=== PATIENT | male | born 1945 | race Caucasian/White ===

== ENCOUNTER 2021-09-09 08:14 | Outpatient (RCR) | payer MEDICARE, OTHER, SELFPAY ==
--- OUTSIDE RECORDS SUMMARY | 2021-08-07 08:56 | XMS_ITS | Continuity of Care Document ---
:1945 Author Support Name Relationship Address Phone DIANA Unavailable Unavailable Unavailable [place], [facility] Team Providers Name Role Phone MD Abiola Torres Primary Care Physician MD Bernabe Attending Physician Unavailable Allergies, Adverse Reactions, Alerts Allergen Type Severity Reaction Last Updated Verified Status Chlorhexidine Allergy Unknown March Yes Active 2021 Social History Smoking Status Status Start Date End Date Date of Observat ion Never smoked tobacco November 4:30pm (finding) Observation Status Observation Response Date of Response Alcohol abuse December 07, 2020 1 2:25pm Where do you live? Own home/apt December 03, 2020 4 :49pm With whom do you live? 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 Hypertension Active Thrombocytopenia Active Hypovolemic shock Active 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 Medications Medication Status Dose Units Route Directions Qty Days Start End Ins tructions Date Date Acetaminophen Active 500-10 MG PO Every 6 100 NO MORE THAN (Tylenol 00 Hours as 4000 MG/ DAY Extra needed Strength) 500 Mg TAB Amlodipine Active 5 MG PO Daily Besylate Bosutinib Active 500 MG PO Daily (Bosulif) 500 Mg TAB Bupropion Hcl Active 150 MG PO Daily (Bupropion Hcl Xl (24 Hr)) 150 Mg TABCR Cholecalcifer Active 49153 UNIT PO Daily ol (Vitamin D3) 10,000 Unit TAB Nitroglycerin Active 0.4 MG SL Every 5 100 Minutes X 3 as needed Omeprazole Active 20 MG PO Daily 30 Ropinirole Active 0.5 MG PO Bedtime as Hcl needed (Ropinirole Hydrochloride ) 0.5 Mg TAB Rosuvastatin Active 20 MG PO Bedtime 90 Calcium Topiramate Active 100 MG PO Bedtime Acetaminophen Disconti 500-10 MG PO Every 6 100 Januar NO MORE THAN (Tylenol nued 00 Hours as y 4000 MG/ DAY Extra needed for , ) 500 Headache 2015 Mg TAB 3:07pm Antidepressan Disconti September do es not know the name, started per Dr Barragan t nued 02/15 tab X next 3 days then full tablet 2015 1:23pm Aspirin Disconti 325 MG PO Daily November Stop t his medicine for now. Do not resume until your nued , er physician devi cates that you may do so. 2020 2nd, 12:21pm 2020 8:58am Aspirin Disconti 325 MG PO Daily 100 Octobe nued r 2020 1:23pm Aspirin Disconti 81 MG PO Daily 100 Octobe nued r 2020 2:56pm Betalen-Beet Disconti Twice A Day Sepu st Extract ed 2015 3:32pm Bosulf Disconti 300 MG PO Daily r On hold s marilyn nued y 10/30 9:18am Bosutinib Disconti 500 MG PO Daily 150 July takes 5 tabs (Bosulif) 100 nued , daily- 500mg Mg TAB 2020 2020 2:12pm 3:08pm Bosutinib Disconti 500 MG PO Daily 150 July takes 5 tabs (Bosulif) 100 nued , , daily- 500mg Mg TAB 2020 2020 3:48pm 2:12pm Bosutinib Disconti 100 MG PO July takes 3 tabs (Bosulif) 100 nued , daily- 300mg Mg TAB 2020 3:48pm Cholecalcifer Disconti 34687 UNIT PO Daily Novem ol (Vitamin nued er D) 5,000 Unit , TAB 2020 8:58am Cholecalcifer Disconti 36898 UNIT PO Daily May ol (Vitamin nued , D3) 10,000 2020 Unit TAB 3:28pm Cholecalcifer Disconti 93861 UNIT PO One Day Per 100 Mar ch ol (Vitamin nued Week 17, D) 5,000 Unit 2019 TAB 10:09a m Cholecalcifer Disconti 5000 UNIT PO Daily 100 Octobe ol (Vitamin nued r D) 5,000 Unit 2013 3:52pm Cholecalcifer Disconti 40463 UNIT PO Weekly 100 September ol (Vitamin nued , D) 5,000 Unit 2013 TAB 8:01am Cholecalcifer Disconti 5000 UNIT PO One Day Per Amando e ol (Vitamin nued Week 11, D) 5,000 Unit 2013 TAB 2:28pm Citalopram Disconti 20 MG PO Daily 90 Octobe Hydrobromide nued r 2020 2:56pm Citalopram Disconti 20 MG PO Daily 90 Januar Hydrobromide nu y 2019 1:17pm Covid-19 Disconti 30 MCG IM Once 1 Septem (Sars-Cov-2) nued er 7th, eugene Mrna Vir 2020 7th, (Pfizer-Biont 10:05am 2020 ech Covid-19) 10:19a 30 Mcg/0.3 Ml m INJ Dasatinib Disconti 100 MG OR Octobe (Sprycel) 100 nued r Mg TAB 2013 3:52pm Dasatinib Disconti 100 MG PO Daily Octobe (Sprycel) 100 nued r Mg TAB 2013 3:52pm Ibuprofen Disconti 200 MG PO Q6h Prn for 30 Octobe (Advil) 200 nued Pain r Mg CAP 2020 2:56pm Imatinib Disconti 400 MG PO Daily Novemb Mesylate nued er (Gleevec) 400 27th, Mg TAB 2018 11:29a m Imatinib Disconti 400 MG PO Daily May Octobe Mesylate nued 16, r 9th, (Gleevec) 400 2018 2019 Mg TAB 10:08am 9:26am Meclizine Hcl Disconti 12.5 MG PO Three Times Sep ust nued A Day as 2016 7:59am Tobramycin/De Disconti 2 DROP LEFT Four Times Aprilo be xamethasone nued EYE Daily , r (Tobradex 2020 7:54am 2020 Suspension) 1 2:56pm Drop DROP Topamax Disconti 2 TAB Twice A Day May not sure of the dose nued , takes 2 tabs i n am 3 tabs in pm 2016 8:02am Topiramate Disconti 50 MG PO Daily Octobe (Topamax) 50 nued r Mg TAB 2020 2:56pm Topiramate Disconti 100 MG PO Daily Januar (Topamax) 25 nued y Mg TAB 2019 1:17pm Immunizations Immunization Event Date Not Given Dose [employer] Lot [employer] Reason Number Number Informatio n Statement (VIS) Deta il COVID-19 Pfizer March 17 PFIZER-BIONTECH [id number] 2020 COVID-19 Pfizer May 03, PFIZER-BIONTECH [id number] 2020 COVID-19 Pfizer October 17 PFIZER-BIO [id number] 2020 Relevant Diagnostic Tests and/or Laboratory Data Laboratory Results Test Date/Time Result Interpretation Reference Result Comment Performing Range Site White Blood July 22, 7.35 5.00-10.00 [facility] Count 2021 [address] [facility] 11:50am [place] [address] Red Blood July 22, 4.02 4.32-5.72 [facility] Count 2021 [address] [facility] 11:50[address] [place] [address] Hemoglobin July 22, 10.9 13.5-17.5 [facility] 2021 [address] [facility] 11:50am [place] [address] Hematocrit July 22, 35.3 38.8-50.0 [facility] 2021 [address] [facility] 11:50[address] [place] [address] Mean July 22, 88 81-95 [facility] Corpuscular 2021 [address] [facility] Volume 11:50[place] [address] Mean July 22, 27 27-34 [facility] Corpuscular 2021 [address] [facility] Hemoglobin 11:50am [place] [address] Mean July 22, 31 32-36 [facility] Corpuscular 2021 [address] [facility] Hemoglobin 11:50am [place] [address] Concent Platelet July 22, 150 150-450 [facility] Count 2021 [address] [facility] 11:50am [facility] [address] RDW July 22, 13.7 11.5-15.3 [facility] Coefficient 2021 [address] [facility] of Variation 11:50am [place] [address] Neutrophils July 22, 73.2 50.0-70.0 [facility] (%) (Auto) 2021 [address] [facility] 11:50am [place] [address] Lymphocytes July 22, 10.5 25.0-45.0 [facility] (%) (Auto) 2021 [address] [facility] 11:50am [place] [address] Monocytes July 22, 10.5 0.00-11.0 [facility] (%) (Auto) 2021 [address] [facility] 11:50am [place] [address] Eosinophils July 22, 5.2 0.0-7.0 [facility] (%) (Auto) 2021 [address] [facility] 11:50am [facility] [address] Basophils July 22, 0.5 0.0-3.0 [facility] (%) (Auto) 2021 [address] [facility] 11:50am [facility] [address] Immature July 22, 0.1 [facility] Granulocyte 2021 [address] [facility] % (Auto) 11:50am [facility] [address] Neutrophils July 22, 5.38 1.70-7.00 [facility] # (Auto) 2021 [address] [facility] 11:50[address] [place] [address] Lymphocytes July 22, 0.77 0.90-2.90 [facility] # (Auto) 2021 [address] [facility] 11:50am [place] [address] Monocytes # July 22, 0.77 0.30-0.90 [facility] (Auto) 2021 [address] [facility] 11:50am [place] [address] Eosinophils July 22, 0.38 0.00-0.50 [facility] # (Auto) 2021 [address] [facility] 11:50am [place] [address] Basophils # July 22, 0.04 0.00-0.20 [facility] (Auto) 2021 [address] [facility] 11:50am [place] [address] Immature July 22, 0.01 [facility] Granulocyte 2021 [address] [facility] # (Auto) 11:50am [facility] [address] Reticulocyte February 0.8 0.5-1.5 [facility] Count,Calcul [address] at[address] 9:54am [facility] [address] Random July 22, 104 60-115 [facility] Glucose 2021 [address] [facility] 11:50am [facility] [address] Blood Urea July 22, 38 7-30 [facility] Nitrogen 2021 [address] [facility] 11:50am [facility] [address] Creatinine July 22, 2.1 0.5-1.5 [facility] 2021 [address] [facility] 11:50am [facility] [address] Estimated July 22, Patient [facility] Creatinine 2021 height/weight [address] [facility] Clearance 11:50am data not [facility] [address] available Sodium Level July 22, 143 135-149 [facility] 2021 [address] [facility] 11:50am [facility] [address] Potassium July 22, 4.8 3.6-5.1 [facility] Level 2021 [address] [facility] 11:50am [facility] [address] Chloride July 22, 110 96-114 [facility] Level 2021 [address] [facility] 11:50am [facility] [address] Carbon July 22, 21 20-32 [facility] Dioxide 2021 [address] [facility] Level 11:50am [facility] [address] Calcium July 22, 8.9 8.4-10.6 [facility] Level 2021 [address] [facility] 11:50am [facility] [address] Total July 22, 7.4 6.0-8.3 The use of [facility] Protein 2021 grant Willis [address] [facility] 11:50am bone [place] [address] stimulant used to treat thrombocytopeni a and aplastic anemia, interferes with this measurement of total protein. A 5% bias has been observed. Albumin July 22, 4.4 3.3-5.0 [facility] 2021 [address] [facility] 11:50[place] [address] Total July 22, 0.3 0.1-1.5 [facility] Bilirubin 2021 [address] [facility] 11:50am [facility] [address] Aspartate July 22, 24 12-35 [facility] Amino Transf [address] (AST/SGOT) 11:50am [facility] [address] Alanine Sharron 8th, 16 4-50 [facility] Aminotransfe [address] rase 11:50am [facility] [address] (ALT/SGPT) Alkaline July 22 40-150 [facility] Phosphatase [address] 11:50am [place] [address] Lactate July 22, 6 313-618 [facility] Dehydrogenas [address] 11:50am [facility] [address] BCR/abl Kathrine Not [facility] t(9;22) [address] Source 2:10pm [facility] [address] BCR/abl1 Kathrine Detected BCR-ABL1 fusion 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 BCR-KUR4sdyutxg cations with BCR breakpoints in the major breakpointclust er region result in the p210 fusion protein and are seen innearly all cases of chronic myelogenous leukemia (CML) and in afew cases of acute lymphoblastic leukemia (ALL). To facilitatethe interlaboratory comparison of findings and the assessment ofmolecular milestones (major molecular response or MMR), resultsreported use the international scale (IS; see Ford MC et al,Leukemia 2009;23:1957-19 63).METHODSTota l RNA was isolated and converted to cDNA; BCR-ABL1 fusionswere quantitated by real-time PCR amplification with primersdesigned to detect the major (p210) BCR-ABL1 breakpoint,incl uding fusions between BCR exon 13 and ABL1 exon 2 (e13a2)and BCR exon 14 and ABL1 exon 2 (e14a2). Each PCR assay includesa standard curve for BCR-ABL1 and the ABL1 control.The normalized copy number(NCN)is calculated and converted to avalue on the international scale (IS) using a validatedrefere nce sample (provided by Bravo Rose MD; see Marie et al, Blood 2010;116:111-11 7) that was calibrated to astandard set of diagnostic specimens defined during the originaltrial of tyrosine kinase inhibitor therapy in CML patients(Jean Claude FITZGERALD et al, [facility] 2003;349:1423-1 432).LIMITATION SThe limit of detection of this assay is 1 BCR-ABL1 positive cellin 125,000 normal cells. The limit of quantification is 0.0069percent IS. This assay does not detect transcripts resultingfrom a rare BCR-ABL1 rearrangement with a BCR exon 19 breakpointthat results in the p230 fusion protein and does not detect theMinor breakpoint (p190). The results of this test must beinterpreted in the context of morphologic and other relevantdata, and should not be used alone for a diagnosis of malignancy.This test was developed and its performance characteristics determined by [employer]. It has not been cleared orapproved by the [place] Food and Drug Administration. This test wasperformed in a CLIA certified laboratory and is intended forclinical purposes. BCR/abl1 Kathrine [address] [facility] Internationa [address] l Scale % 2:10pm [facility] [address] BCR/abl1 May See Note Access [facility] Major (p210) 2021 Enhanced Report [address] EER 2:10pm using the link [facility] [address] below:-Direct access: [email or web address] mPerformed By: [facility] [place], [place] [address]Hcnlyavwzp Director: Adry Maier MD Advance Directives Advance Directive Response Recorded Date/Time Does Pt have Health Care Yes January 11, 2015 4:43pm Directive? Has patient completed a Y - DNR/PCP Dr. Barragan December 03, 2020 4:30pm Health Care Directive? Insurance Providers Guarantor Tamara Edouard Jr Address [address] [place] [id number] Contact Info. Home Phone: CELL Payer Policy Id Coverage Id Subscriber's Subscriber Id Effective E xpiration Name Date Date [employer] [id number] Diana Villanueva, January Prime Tamara Murillo 2015 Solution Plan Medicare [id number] Tamara Edouard Jr Encounters Encounter Location(s) Arrival/Admit Date Discharge/Depart Date Provider(s) Registered [place] July 22, 2021 Michael Kidd [facility] 7:07am Plan of Treatment Future Tests Future scheduled test information is unavailable Pending Tests Pending diagnostic test information is unavailable Future Visits Future appointment information is unavailable Referrals to Other Providers Reason for Referral Start Provider Provider Contact Provider Address Referral Date Information Kofi Barragan Work Phone: [facility] FELIX NEGRON [address] [facility] [phone] Future Procedures Future procedure information is unavailable Future Medications Future medication information is unavailable Patient Instructions Gastrointestinal Bleeding (DC) Anemia (DC) Fatigue (ED)
[2021-08-26 11:07] LABS: Basophils Absolute Auto 0.05 K/uL (0.00-0.30); Basophils Percent Auto 0.6 % (0.0-3.0); Eosinophils Absolute Auto 0.56 K/uL (0.00-0.50); Eosinophils Percent Auto 6.4 % (0.0-7.0); Hematocrit 34.8 % (37.0-53.0); Hemoglobin* 10.7 gm/dL (13.5-17.5); Immature Granulocytes Abs Auto 0.02 K/uL (0.00-0.30); Lymphocytes Percent Auto 10.7 % (20-44); Mean Corpuscular HGB Conc 31 gm/dL (32-36); Mean Corpuscular Hemoglobin 27 pg (26-34); Mean Corpuscular Volume 87 fL (80-100); Monocytes Percent Auto 8.9 % (0.0-11.0); Neutrophils Percent Auto 73.2 % (42.0-72.0); Platelet Count* 161 K/uL (140-440); RDW Coefficient of Variation % 14.1 % (11.5-15.5); Red Blood Count 3.99 m/uL (4.30-5.90)
[2021-08-26 11:15] LABS: Slide Review Reflex No
[2021-08-26 11:20] LABS: Albumin* 4.3 g/dL (3.3-5.0)
[2021-08-26 11:21] LABS: Chloride* 112 mmol/L (96-114); Sodium* 143 mmol/L (135-149)
[2021-08-26 11:23] LABS: Bilirubin Total* 0.3 mg/dL (0.1-1.5); Creatinine* 1.9 mg/dL (0.5-1.5); Estimated Glomerular Filt Rate 36.56
[2021-08-26 11:24] LABS: Alanine Aminotransferase* 19 U/L (4-50); Alkaline Phosphatase* 115 U/L (40-150); Aspartate Amino Transferase* 27 U/L (12-35); Blood Urea Nitrogen* 33 mg/dL (7-30); Carbon Dioxide* 25 mmol/L (20-32); Glucose* 111 mg/dL (60-115); Lactate Dehydrogenase* 812 U/L (313-618); Total Protein* 7.2 g/dL (6.0-8.3)
[2021-08-26 11:25] LABS: Calcium* 9.1 mg/dL (8.4-10.6)
[2021-09-03 00:25] LABS: BCRABL1 Intl Scale (Percent) 0.0468 %
--- NOTE | 2021-09-10 14:47 | ONC.NURNOTE ---
follow up on diarrhea took imodium this am and 1 watery stool since then drinking water, but encourage to add gatorade and pedialyte to hydration has a pattern of diarrhea monthly, but this has lasted 4-[address] Torres tomorrow and will address these concerns
--- NOTE | 2021-09-10 14:53 | ONC.NURNOTE ---
patient also reports a negative covid test
--- NOTE | 2021-09-11 14:53 | ONC.NURNOTE ---
08/27/2021 note copied: Jewel Edouard JR ??Male : 1945? MedRec# [id number] 08/27/21 11:52 - [facility] Nurse Note by Fadumo Romano RN Acct Num: [id number] : 1945? Patient Age: 76 [facility] Nurse Note Clinic Note Narrative: [facility] noted lab results called to Marco Antonio reviewed by Dr Bernabe velázquez in 2 weeks BCR Abl pending Initialized on 08/27/21 11:52 - END OF NOTE
--- NOTE | 2021-09-11 14:55 | ONC.NURNOTE ---
Note from 09/09/2021 copied: Jewel Edouard JR ??Male : 1945? MedRec# [id number] 09/09/21 10:08 - [facility] Nurse Note by Fadumo Romano RN Acct Num: [id number] : 1945? Patient Age: 76 [facility] Nurse Note Clinic Note Narrative: Marco Antonio phoned in with concerns about recent onset of freq watery stools reports started Tuesday am after syriac food Tuesday no diarrhea on Tuesday then frequent watery stools throughout the day on Tuesday and continues today Afeb no pain patient questions covid exposure Plan; Take imodium do a covid test- ph # given for clinics to schedule start pedialye stay hydratated with at least 2 liters/day water juice broth gatorade pedialyte call tomorrow with follow up follow BRAT diet appt with Dr Kidd rescheduled for next week Initialized on 09/09/21 10:08 - END OF NOTE
== END 2021-09-13 23:59 | disposition home or self-care (01) ==
LOC: CCIC 08:14
PROVIDERS: PCP Family Medicine; Visit Provider Internal Medicine Hematology & Oncology
DX: C92.11 Chronic myeloid leukemia, BCR/ABL-positive, in remission (principal)
CPT/HCPCS: 36415; 80053; 81206; 83615; 85025

== ENCOUNTER 2021-09-13 09:42 | Emergency (ER) | payer MEDICARE, OTHER, SELFPAY ==
[2021-09-13 09:58] VITALS: BP 103/56; PULSE 93; RESP 16; TEMP 36.4; O2SAT 98; BMI 25.1
[2021-09-13 10:00] VITALS: BP 103/56; PULSE 99; RESP 16; O2SAT 98
--- NOTE | 2021-09-13 10:17 | ED.GENADULT ---
HPI - General Adult General Time Seen by Provider: 10:17 Date Seen: 09/13/21 Chief complaint: Diarrhea Stated complaint: Diarrhea for 8 days Time Seen by Provider: 09/13/21 09:59 Source: patient History of Present Illness HPI narrative: 76-year-old male with history of CML who presents today with about a week of diarrhea. He is having 8-10 loose stools a day. No blood in the stools. Nausea yesterday but no vomiting. Denies abdominal pain, just ?gurgling. ? Took Imodium last night with minimal improvement. Did have some lightheadedness today which is what prompted his visit to the emergency department. He was seen by his primary care doctor yesterday. He denies fever, chills, chest pain, palpitations, urinary symptoms. He had similar symptoms to this once in the past when he ate at a [place] buffet and did eat at a [place] buffet again prior to onset of symptoms. Related Data Home Medications Medication Instructions Recorded Confirmed acetaminophen 500 mg capsule 500 mg PO Q6H PRN 08/24/21 08/24/21 amlodipine 5 mg tablet 5 mg PO DAILY 08/24/21 08/24/21 bosutinib 500 mg tablet 500 mg PO DAILY 08/24/21 08/24/21 bupropion HCl 150 mg 24 hr tablet, 150 mg PO DAILY 08/24/21 08/24/21 extended release cholecalciferol (vitamin D3) 125 10,000 unit PO DAILY 08/24/21 08/24/21 mcg (5,000 unit) tablet (Vitamin D3) gabapentin 300 mg capsule 300 mg PO DAILY 08/24/21 08/24/21 nitroglycerin 0.4 mg sublingual 0.4 mg SUBLINGUAL Q5-15M PRN 08/24/21 08/24/21 tablet omeprazole 20 mg capsule,delayed 20 mg PO DAILY 08/24/21 08/24/21 release ropinirole 0.5 mg tablet 0.5 mg PO .QHS PRN 08/24/21 08/24/21 rosuvastatin 20 mg tablet 20 mg PO .QHS 08/24/21 08/24/21 topiramate 100 mg tablet 100 mg PO .QHS 08/24/21 08/24/21 Allergies Allergy/AdvReac Type Severity Reaction Status Date / Time Chlorhexidine Allergy Uncoded 09/13/21 10:41 Review of Systems Status of ROS: Reports: 10 or more systems reviewed and unremarkable except as noted in History and below [facility] Medical History (Updated 09/13/21 @ 12:20 by Macho Simon MD) Abrasion of left cornea GERMANIA (acute kidney injury) Anemia Anemia due to acute blood loss Aortic stenosis Chronic myeloid leukemia in remission Fatigue Gastrointestinal hemorrhage due to nonsteroidal 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 Hypertension Hypovolemic shock Lung nodule Pleural effusion QT prolongation Rib injury Thrombocytopenia Vestibular migraine Surgical History (Updated 08/25/21 @ 17:18 by Cassidy Anne APRN) S/P TAVR (transcatheter aortic valve replacement) Social History Smoking Status: Never smoker Do you use any of these nicotine containing products: None Second hand tobacco smoke exposure: No How often do you have a drink containing alcohol: never How often do you have six or more drinks on one occasion: Never AUDIT-C Alcohol total score: 0 Non-prescribed substance use: denies use service: No Exam Const: Vital Signs, click to edit/add: Vital Signs - 24 hr 09/13/21 09:58 Temperature 97.5 F L Pulse Rate [Left P ulse Oximeter] 93 Respiratory Rate 16 Blood Pressure [Le ft Upper Arm] 103/56 L Pulse Oximetry 98 Documenting provider has reviewed patient's vital signs: yes Common normals: no apparent distress, oriented x3, alert and well nourished HENMT: Common normals: normocephalic, head/scalp atraumatic, external ears normal and external nose normal Head and scalp: normocephalic and atraumatic Nose: external nose normal External ear: external ears normal Eye: Common normals: PERRL and conjunctivae normal Conjunctiva: conjunctiva(e) normal Pupil: PERRL Neck & C-Spine: Common normals: full ROM, no lymphadenopathy and supple Chest: Common normals: palpation of chest normal Resp: Common normals: normal respiratory effort and clear to auscultation bilaterally Auscultation: clear to auscultation bilaterally Cardio: Common normals: regular rate, regular rhythm and no murmurs Rate: regular rate Rhythm: regular rhythm GI: Common normals: Normal to inspection, nondistended, normoactive bowel sounds present, soft to palpation and non-tender Palpation: soft Other: No tenderness, hyperactive bowel sounds : Common normals: no CVA tenderness Bladder/kidney exam: no CVA tenderness Back & Pelvis: Common normals: no CVA tenderness and thoracic and lumbar spine normal to inspection Extremity: Common normals: normal to inspection, full ROM and no pedal edema Neuro: Common normals: oriented x3, CN's II-XII intact bilaterally and no focal motor deficits Sensorium/orientation: alert Psych: Common normals: mental status grossly normal Skin: Common normals: no rashes or lesions noted General skin exam: no rashes or lesions noted Course Reevaluation(s) Reevaluation #1: White blood cell count is slightly elevated CT scan was ordered. Otherwise, creatinine is 2.3 which is just slightly above patient's baseline which appears to be about 1.7-2.1. The patient remains stable in the department otherwise. Will continue to monitor and patient likely can be discharged with antidiarrheals. Time: 11:42 Vital Signs Vital signs: Initial Vital Signs Temperature 97.5 F L 09/13/21 09:58 Temperature Source Temporal Artery Scan 09/13/21 09:58 Pulse Rate 93 09/13/21 09:58 Pulse Rhythm 09/13/21 09:58 Pulse Strength 3+ Normal 09/13/21 09:58 Respiratory Rate 16 09/13/21 09:58 Blood Pressure 103/56 L 09/13/21 09:58 Blood Pressure Mean 71 09/13/21 09:58 Blood Pressure Position Sitting 09/13/21 09:58 Pulse Oximetry 98 09/13/21 09:58 Oxygen Delivery Method 09/13/21 09:58 Vital Signs Temperature 97.5 F L 09/13/21 09:58 Pulse Rate 93 09/13/21 09:58 Respiratory Rate 16 09/13/21 09:58 Blood Pressure 103/56 L 09/13/21 09:58 Pulse Oximetry 98 09/13/21 09:58 Temperature 97.5 F L 09/13/21 09:58 Pulse Rate 93 09/13/21 09:58 Respiratory Rate 16 09/13/21 09:58 Blood Pressure 103/56 L 09/13/21 09:58 Pulse Oximetry 98 09/13/21 09:58 Medical Decision Making MDM Narrative Medical decision making narrative: Patient seen and examined, prior records are reviewed. Differential diagnosis includes but not limited to colitis, diverticulitis, acute kidney injury, electrolyte disturbance, gastroenteritis, malabsorption. Patient presents with about a week diarrhea as well as some lightheadedness. On initial exam, blood pressure is little bit low, patient is in no distress. Hyperactive bowel sounds with no abdominal tenderness. Labs and IV fluids are ordered initially, consider CT scan if leukocytosis or has abdominal pain or tenderness on repeat exam. Medical Records Medical records reviewed: Yes I reviewed the patient's medical records Lab Data Lab results reviewed: Yes I reviewed the patient's lab results Labs: Lab Results 09/13/21 09/13/21 Range/Units 10:45 10:45 WBC 12.20 H (4.50-11.00) K/uL RBC 4.79 (4.30-5.90) m/uL Hgb 12.8 L (13.5-17.5) gm/dL Hct 40.2 (37.0-53.0) % MCV 84 (80-100) fL MCH 27 (26-34) pg MCHC 32 (32-36) gm/dL RDW Coeff of Isha 14.0 (11.5-15.5) % Plt Count 174 (140-440) K/uL Neut % (Auto) 67.3 (42.0-72.0) % Lymph % (Auto) 12.4 L (20-44) % [place] % (Auto) 9.6 (0.0-11.0) % Eos % (Auto) 10.2 H (0.0-7.0) % Baso % (Auto) 0.2 (0.0-3.0) % Neut # (Auto) 8.20 H (1.7-7.0) K/uL Lymph # (Auto) 1.50 (0.90-2.90) K/uL [place] # (Auto) 1.20 H (0.00-0.90) K/UL Eos # (Auto) 1.20 H (0.00-0.50) K/uL Baso # (Auto) 0.00 (0.00-0.30) K/uL Abs Immat Gran (auto) 0.04 (0.00-0.30) K/uL Sodium 138 (135-149) mmol/L Potassium 4.3 (3.6-5.1) mmol/L Chloride 105 (96-114) mmol/L Carbon Dioxide 22 (20-32) mmol/L BUN 36 H (7-30) mg/dL Creatinine 2.3 H (0.5-1.5) mg/dL Estimated Creat Clear 28.18 Estimated GFR 29 ml/min Glucose 120 H (60-115) mg/dL Calcium 9.6 (8.4-10.6) mg/dL Imaging Data CT scan - abdomen: Radiologist's impression: 1. There is mild fluid distention of bowel, especially colon, without wall thickening or surrounding inflammatory change. This probably represents an enteritis. No mechanical obstruction. 2. Other incidental nonacute appearing findings as above. Discharge Plan Discharge Clinical Impression: Diarrhea, CKD (chronic kidney disease) Patient Disposition: Home, Self-Care Condition: Improved Instructions: Chronic Kidney Disease (ED), Acute Diarrhea (ED) Additional Instructions: Take Imodium to 4 times a day as needed for diarrhea. Follow up with her primary care doctor next week. Activity Level: No Restrictions Discharge Diet: Regular Prescriptions: No Action amlodipine 5 mg tablet 5 mg PO DAILY 0RF Label Comments: TAKE ONE TABLET BY MOUTH ONE TIME DAILY ropinirole 0.5 mg tablet 0.5 mg PO .QHS PRN0RF Label Comments: TAKE 1 TABLET BY MOUTH 2-3 HOURS BEFORE BEDTIME NEEDED FOR RESTLESS LEGS. gabapentin 300 mg capsule 300 mg PO DAILY 0RF Label Comments: take 1 capsule by mouth once daily at bedtime. may increase to 2 capsules at bedtime after 1 week if needed. omeprazole 20 mg capsule,delayed release(DR/EC) 20 mg PO DAILY 0RF Label Comments: Take 1 Tablet (20 mg) by mouth once daily before a meal topiramate 100 mg tablet 100 mg PO .QHS 0RF Label Comments: TAKE ONE TABLET BY MOUTH ONE TIME DAILY AT BEDTIME rosuvastatin 20 mg tablet 20 mg PO .QHS 0RF Label Comments: Take 1 Tablet (20 mg) by mouth at bedtime. Due for cardiology follow up. Please call [phone] to schedule. bupropion HCl 150 mg tablet extended release 24 hr 150 mg PO DAILY 0RF Label Comments: TAKE ONE TABLET BY MOUTH ONE TIME DAILY acetaminophen 500 mg capsule 500 mg PO Q6H PRN0RF Rx Instructions: Take 1-2 every 6 hours as needed. bosutinib 500 mg tablet 500 mg PO DAILY 0RF Rx Instructions: must administer with a meal/food cholecalciferol (vitamin D3) [Vitamin D3] 125 mcg (5,000 unit) tablet 10,000 unit PO DAILY 0RF nitroglycerin 0.4 mg tablet, sublingual 0.4 mg sublingual Q5-15M PRN0RF Rx Instructions: do not exceed 3 doses per episode Follow Up/Referrals: Delgado Torres MD [Primary Care Provider] - Stand Alone Forms: [employer] Info Instructions
[2021-09-13 10:56] LABS: Basophils Percent Auto 0.2 % (0.0-3.0); Eosinophils Percent Auto 10.2 % (0.0-7.0); Hematocrit 40.2 % (37.0-53.0); Hemoglobin* 12.8 gm/dL (13.5-17.5); Immature Granulocytes Abs Auto 0.04 K/uL (0.00-0.30); Lymphocytes Percent Auto 12.4 % (20-44); Mean Corpuscular HGB Conc 32 gm/dL (32-36); Mean Corpuscular Hemoglobin 27 pg (26-34); Mean Corpuscular Volume 84 fL (80-100); Monocytes Percent Auto 9.6 % (0.0-11.0); Neutrophils Percent Auto 67.3 % (42.0-72.0); Platelet Count* 174 K/uL (140-440); Red Blood Count 4.79 m/uL (4.30-5.90)
[2021-09-13 11:00] VITALS: BP 112/58; PULSE 85; RESP 16; TEMP 36.4; O2SAT 99
[2021-09-13 11:11] LABS: Slide Review Reflex No
--- NOTE | 2021-09-13 11:12 | CRLHL7_ITS ---
For Patients: As a result of the 21st Century Cures Act, medical imaging exams and procedure reports are released immediately into your electronic medical record. You may view this report before your referring provider. If you have questions, please contact your health care provider. INDICATION: Diarrhea and leukocytosis. History of leukemia and history of testicular cancer COMPARISON: Portions of a March 23, 2021 exam TECHNIQUE: CT examination of the abdomen and pelvis was performed without intravenous contrast. Thin section axial images were obtained from the lung bases through the pubic symphysis. Oral contrast was not administered. Please note that all CT scans at this facility use dose modulation, iterative reconstruction, and/or weight-based dosing when appropriate to reduce radiation dose to as low as reasonably achievable. FINDINGS: LUNG BASES: Left lung base appears normal. Pleural thickening and chronic loculated pleural fluid with associated rounded atelectasis at the right base.This is unchanged. Heart size top-normal. Vascular calcifications and aortic valve repair. LIVER/BILIARY SYSTEM:Normal noncontrast appearance of the liver. No focal mass or biliary ductal dilatation. The gallbladder is mildly distended but otherwise unremarkable appearing ADRENALS: Normal non-contrast appearance KIDNEYS, URETERS and BLADDER:Kidneys normal in size. No focal mass or obstructive uropathy. Bladder appears normal. SPLEEN:Normal non-contrast appearance. PANCREAS: Normal non-contrast appearance. RETROPERITONEUM and MESENTERY: There is no mass, adenopathy or aortic aneurysm. Atherosclerotic vascular calcifications without syl aneurysm. Mild ectasia of the aorta. GASTROINTESTINAL SYSTEM: There is no evidence of diverticulitis or obstruction. There is mild fluid distention of bowel, especially colon without wall thickening or surrounding inflammatory change. This probably represents an enteritis. PELVIS: No mass, adenopathy or free fluid. OSSEOUS STRUCTURES and ABDOMINAL WALL: No destructive process of bone. Degenerative changesno significant abdominal wall defect. OTHER: No free fluid or free air. IMPRESSION: 1. There is mild fluid distention of bowel, especially colon, without wall thickening or surrounding inflammatory change. This probably represents an enteritis. No mechanical obstruction. 2. Other incidental nonacute appearing findings as above. Please note that all CT scans at this facility use dose modulation, iterative reconstruction, and/or weight-based dosing when appropriate to reduce radiation dose to as low as reasonably achievable. Dictated by Herminio Carrera MD @ 09/13/2021 12:21:17 PM (Electronically Signed)
[2021-09-13 11:16] LABS: Chloride* 105 mmol/L (96-114); Potassium* 4.3 mmol/L (3.6-5.1); Sodium* 138 mmol/L (135-149)
[2021-09-13 11:18] LABS: Creatinine* 2.3 mg/dL (0.5-1.5); Est. Creatinine Clearance* 28.18; Estimated Glomerular Filt Rate 29 ml/min
[2021-09-13 11:19] LABS: Blood Urea Nitrogen* 36 mg/dL (7-30); Calcium* 9.6 mg/dL (8.4-10.6); Carbon Dioxide* 22 mmol/L (20-32); Glucose* 120 mg/dL (60-115)
[2021-09-13] MEDS: 0.9 % SODIUM CHLORIDE 1000 ml 1,000 ML IV (11:19)
[2021-09-13 12:00] VITALS: BP 103/54; PULSE 99; RESP 16; TEMP 36.4; O2SAT 100
[2021-09-13 13:14] LABS: C.Difficile Negative (Negative); CDIFFEPI 027 PRESUMPTIVE NEGATIVE (Negative)
--- NOTE | 2021-09-15 10:07 | ONC.NURNOTE ---
Follow up of ER visit due to diarrhea Marco Antonio reports no further BM's yesterday and has not taken any imodium for about 36 hours Reports stomach still feels unsettled coming in today for repeat lab draw to for renal function
== END 2021-09-13 12:46 | disposition home or self-care (01) ==
PROVIDERS: Emergency Provider Family Medicine; PCP Family Medicine
DX: R19.7 Diarrhea, unspecified (principal); N18.9 Chronic kidney disease, unspecified
CPT/HCPCS: 36415; 74176; 80048; 85025; 87045; 87046; 87427; 87493; 99284; J7030

== ENCOUNTER 2021-11-04 09:30 | Outpatient (RCR) | payer MEDICARE, OTHER, SELFPAY | END 2021-11-04 10:15 | disposition home or self-care (01) | PROVIDERS: PCP Family Medicine; Visit Provider Family Medicine | DX: M76.62 Achilles tendinitis, left leg (principal); M76.61 Achilles tendinitis, right leg; Z51.89 Encounter for other specified aftercare | CPT/HCPCS: 97162; 97763 ==

== ENCOUNTER 2022-03-01 10:00 | Outpatient (RCR) | payer MEDICARE, OTHER, SELFPAY ==
[2021-09-15 12:52] LABS: Basophils Absolute Auto 0.05 K/uL (0.00-0.30); Basophils Percent Auto 0.5 % (0.0-3.0); Eosinophils Percent Auto 12.6 % (0.0-7.0); Hematocrit 36.3 % (37.0-53.0); Hemoglobin* 11.7 gm/dL (13.5-17.5); Immature Granulocytes Abs Auto 0.02 K/uL (0.00-0.30); Lymphocytes Percent Auto 12.9 % (20-44); Mean Corpuscular HGB Conc 32 gm/dL (32-36); Mean Corpuscular Hemoglobin 27 pg (26-34); Mean Corpuscular Volume 83 fL (80-100); Monocytes Percent Auto 9.2 % (0.0-11.0); Neutrophils Absolute Auto 6.89 K/uL (1.7-7.0); Neutrophils Percent Auto 64.6 % (42.0-72.0); Platelet Count* 175 K/uL (140-440); RDW Coefficient of Variation % 13.8 % (11.5-15.5); Red Blood Count 4.35 m/uL (4.30-5.90); White Blood Count* 10.66 K/uL (4.50-11.00)
[2021-09-15 12:54] LABS: Slide Review Reflex No
[2021-09-15 13:04] LABS: Chloride* 106 mmol/L (96-114); Potassium* 4.3 mmol/L (3.6-5.1); Sodium* 139 mmol/L (135-149)
[2021-09-15 13:07] LABS: Carbon Dioxide* 21 mmol/L (20-32); Creatinine* 2.1 mg/dL (0.5-1.5); Estimated Glomerular Filt Rate 32 ml/min
[2021-09-15 13:08] LABS: Blood Urea Nitrogen* 29 mg/dL (7-30); Calcium* 9.1 mg/dL (8.4-10.6); Glucose* 109 mg/dL (60-115)
--- NOTE | 2021-09-16 11:06 | ONC.NURNOTE ---
Lab results reviewed and message left on voice mail to call with results Creat improved to 2.1 and CrCl improved to 32 no change in Bostulif at this time next appts set up for Dr Kidd in 2 1/2 weeks
[2021-11-04 10:25] LABS: Basophils Absolute Auto 0.03 K/uL (0.00-0.30); Basophils Percent Auto 0.4 % (0.0-3.0); Eosinophils Absolute Auto 0.23 K/uL (0.00-0.50); Hematocrit 32.9 % (37.0-53.0); Hemoglobin* 10.1 gm/dL (13.5-17.5); Immature Granulocytes Abs Auto 0.01 K/uL (0.00-0.30); Lymphocytes Percent Auto 8.9 % (20-44); Mean Corpuscular HGB Conc 31 gm/dL (32-36); Mean Corpuscular Hemoglobin 27 pg (26-34); Mean Corpuscular Volume 89 fL (80-100); Monocytes Percent Auto 12.8 % (0.0-11.0); Neutrophils Percent Auto 74.8 % (42.0-72.0); Platelet Count* 144 K/uL (140-440); RDW Coefficient of Variation % 15.6 % (11.5-15.5); Red Blood Count 3.71 m/uL (4.30-5.90); White Blood Count* 7.66 K/uL (4.50-11.00)
[2021-11-04 10:29] LABS: Slide Review Reflex No
[2021-11-04 10:45] LABS: Albumin* 4.4 g/dL (3.3-5.0); Chloride* 108 mmol/L (96-114)
[2021-11-04 10:46] LABS: Potassium* 4.6 mmol/L (3.6-5.1); Sodium* 140 mmol/L (135-149)
[2021-11-04 10:48] LABS: Bilirubin Total* 0.3 mg/dL (0.1-1.5); Carbon Dioxide* 23 mmol/L (20-32); Creatinine* 1.8 mg/dL (0.5-1.5); Estimated Glomerular Filt Rate 39 ml/min
[2021-11-04 10:49] LABS: Alanine Aminotransferase* 16 U/L (4-50); Alkaline Phosphatase* 93 U/L (40-150); Aspartate Amino Transferase* 27 U/L (12-35); Blood Urea Nitrogen* 31 mg/dL (7-30); Calcium* 8.8 mg/dL (8.4-10.6); Glucose* 109 mg/dL (60-115); Lactate Dehydrogenase* 844 U/L (313-618); Total Protein* 7.7 g/dL (6.0-8.3)
--- NOTE | 2021-11-06 12:21 | ONC.NURNOTE ---
Patient told that hemoglobin down and he denies blood in stool/Black tarry stools/and does state he was having diarrhea but it's better. Will get labs December 02 and go to primary if continues or any signs of bleeeding.
[2021-12-02 10:11] LABS: Basophils Absolute Auto 0.05 K/uL (0.00-0.30); Basophils Percent Auto 0.8 % (0.0-3.0); Eosinophils Absolute Auto 0.32 K/uL (0.00-0.50); Eosinophils Percent Auto 5.2 % (0.0-7.0); Hematocrit 34.9 % (37.0-53.0); Hemoglobin* 10.6 gm/dL (13.5-17.5); Immature Granulocytes Abs Auto 0.02 K/uL (0.00-0.30); Lymphocytes Percent Auto 10.6 % (20-44); Mean Corpuscular HGB Conc 30 gm/dL (32-36); Mean Corpuscular Hemoglobin 27 pg (26-34); Mean Corpuscular Volume 89 fL (80-100); Monocytes Percent Auto 10.3 % (0.0-11.0); Neutrophils Percent Auto 72.8 % (42.0-72.0); Platelet Count* 165 K/uL (140-440); RDW Coefficient of Variation % 15.2 % (11.5-15.5); Red Blood Count 3.91 m/uL (4.30-5.90); White Blood Count* 6.21 K/uL (4.50-11.00)
[2021-12-02 10:19] LABS: Albumin* 4.7 g/dL (3.3-5.0); Chloride* 109 mmol/L (96-114); Sodium* 140 mmol/L (135-149)
[2021-12-02 10:20] LABS: Potassium* 4.5 mmol/L (3.6-5.1)
[2021-12-02 10:22] LABS: Alkaline Phosphatase* 85 U/L (40-150); Aspartate Amino Transferase* 29 U/L (12-35); Bilirubin Total* 0.2 mg/dL (0.1-1.5); Blood Urea Nitrogen* 28 mg/dL (7-30); Carbon Dioxide* 22 mmol/L (20-32); Creatinine* 1.8 mg/dL (0.5-1.5); Est. Creatinine Clearance* 39.52; Estimated Glomerular Filt Rate 39 ml/min; Glucose* 122 mg/dL (60-115); Lactate Dehydrogenase* 879 U/L (313-618); Slide Review Reflex No; Total Protein* 8.2 g/dL (6.0-8.3)
[2021-12-02 10:23] LABS: Alanine Aminotransferase* 17 U/L (4-50); Calcium* 9.1 mg/dL (8.4-10.6)
--- NOTE | 2021-12-02 14:32 | ONC.NURNOTE ---
Patient called with his lab results. LHD was 879. previous 844. no concern for now per Rosalind. sign of the inflamation. creat 1.8 as previous. pt states no concern or questions. results left with chart in Dr. Kidd box. pt to continue same medication and dosage. apt with Dr. Kidd dec.15.
--- NOTE | 2022-01-05 11:55 | ONC.NURNOTE ---
Addendum entered by Fadumo Romano RN 01/11/22 12:29: Anthropology Department Chair contacted [facility]- they have chandni to ship now patient to be notified Original Note: Arnavf out of stock at [facility] unknown when will be available patient has been out of medication for 8 days fax received today from [facility]
[2022-01-20 14:27] LABS: Basophils Absolute Auto 0.03 K/uL (0.00-0.30); Basophils Percent Auto 0.4 % (0.0-3.0); Eosinophils Absolute Auto 0.21 K/uL (0.00-0.50); Eosinophils Percent Auto 2.7 % (0.0-7.0); Hematocrit 34.6 % (37.0-53.0); Hemoglobin* 10.7 gm/dL (13.5-17.5); Immature Granulocytes Abs Auto 0.02 K/uL (0.00-0.30); Immature Granulocytes Pct Auto 0.3 %; Lymphocytes Percent Auto 8.4 % (20-44); Mean Corpuscular HGB Conc 31 gm/dL (32-36); Mean Corpuscular Hemoglobin 27 pg (26-34); Mean Corpuscular Volume 89 fL (80-100); Monocytes Percent Auto 12.1 % (0.0-11.0); Neutrophils Percent Auto 76.1 % (42.0-72.0); Platelet Count* 133 K/uL (140-440); RDW Coefficient of Variation % 14.4 % (11.5-15.5); White Blood Count* 7.78 K/uL (4.50-11.00)
[2022-01-20 14:34] LABS: Slide Review Reflex No
[2022-01-20 15:18] LABS: Chloride* 111 mmol/L (96-114)
[2022-01-20 15:19] LABS: Albumin* 4.5 g/dL (3.3-5.0); Potassium* 4.7 mmol/L (3.6-5.1); Sodium* 143 mmol/L (135-149)
[2022-01-20 15:22] LABS: Alanine Aminotransferase* 21 U/L (4-50); Alkaline Phosphatase* 100 U/L (40-150); Aspartate Amino Transferase* 31 U/L (12-35); Bilirubin Total* 0.4 mg/dL (0.1-1.5); Blood Urea Nitrogen* 22 mg/dL (7-30); Carbon Dioxide* 23 mmol/L (20-32); Creatinine* 1.7 mg/dL (0.5-1.5); Est. Creatinine Clearance* 41.84; Estimated Glomerular Filt Rate 42 ml/min; Glucose* 99 mg/dL (60-115); Total Protein* 7.8 g/dL (6.0-8.3)
[2022-01-20 15:23] LABS: Calcium* 8.8 mg/dL (8.4-10.6)
--- NOTE | 2022-02-19 11:53 | ONC.NURNOTE ---
Message left to call and schedule next lab appt which is due now
[2022-02-22 10:09] LABS: Basophils Absolute Auto 0.03 K/uL (0.00-0.30); Basophils Percent Auto 0.5 % (0.0-3.0); Eosinophils Absolute Auto 0.21 K/uL (0.00-0.50); Eosinophils Percent Auto 3.6 % (0.0-7.0); Immature Granulocytes Abs Auto 0.04 K/uL (0.00-0.30); Immature Granulocytes Pct Auto 0.7 %; Lymphocytes Percent Auto 12.1 % (20-44); Mean Corpuscular HGB Conc 31 gm/dL (32-36); Mean Corpuscular Hemoglobin 28 pg (26-34); Mean Corpuscular Volume 88 fL (80-100); Monocytes Percent Auto 12.6 % (0.0-11.0); Neutrophils Absolute Auto 4.08 K/uL (1.7-7.0); Neutrophils Percent Auto 70.5 % (42.0-72.0); Platelet Count* 133 K/uL (140-440); RDW Coefficient of Variation % 15.3 % (11.5-15.5); Red Blood Count 3.98 m/uL (4.30-5.90); White Blood Count* 5.79 K/uL (4.50-11.00)
[2022-02-22 10:20] LABS: Slide Review Reflex No
[2022-02-22 10:34] LABS: Albumin* 4.6 g/dL (3.3-5.0); Chloride* 110 mmol/L (96-114); Sodium* 139 mmol/L (135-149)
[2022-02-22 10:35] LABS: Potassium* 4.5 mmol/L (3.6-5.1)
[2022-02-22 10:37] LABS: Alkaline Phosphatase* 93 U/L (40-150); Aspartate Amino Transferase* 32 U/L (12-35); Bilirubin Total* 0.3 mg/dL (0.1-1.5); Blood Urea Nitrogen* 37 mg/dL (7-30); Carbon Dioxide* 21 mmol/L (20-32); Creatinine* 2.2 mg/dL (0.5-1.5); Est. Creatinine Clearance* 32.33; Estimated Glomerular Filt Rate 31 ml/min; Lactate Dehydrogenase* 349 U/L (120-246); Total Protein* 7.9 g/dL (6.0-8.3)
[2022-02-22 10:38] LABS: Alanine Aminotransferase* 21 U/L (4-50); Calcium* 8.8 mg/dL (8.4-10.6)
[2022-02-22 11:36] LABS: Glucose* 94 mg/dL (60-115)
--- NOTE | 2022-02-24 11:11 | ONC.NURNOTE ---
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
[2022-03-01 10:52] LABS: Chloride* 108 mmol/L (96-114); Potassium* 4.7 mmol/L (3.6-5.1); Sodium* 139 mmol/L (135-149)
[2022-03-01 10:55] LABS: Blood Urea Nitrogen* 29 mg/dL (7-30); Carbon Dioxide* 24 mmol/L (20-32); Creatinine* 1.8 mg/dL (0.5-1.5); Est. Creatinine Clearance* 39.52; Estimated Glomerular Filt Rate 39 ml/min
[2022-03-01 10:56] LABS: Glucose* 98 mg/dL (60-115)
[2022-03-04 17:28] LABS: QuantBCR-ABL Major p210 Source Not Provided
--- NOTE | 2022-03-05 11:09 | ONC.NURNOTE ---
Voice message left with improvement in Creat level from earlier this week BCR ABL results noted and change from Nov to review with provider if additional monitoring is needed prior to next months follow up
--- NOTE | 2022-03-11 15:25 | ONC.NURNOTE ---
increase in BCR/ABL discussed with Dr Cade Per Dr Cade recheck in 3 months as per his routine schedule with RTC following lab cancel Mar app continue monthly lab monitoring, due for EKG in Mar RTC set for May [address] Cade Lab due approx week of Mar 29 and May 03 Message left for patient to call
== END 2022-03-14 23:59 | disposition home or self-care (01) ==
LOC: CCIC 10:00
PROVIDERS: Clinical Nurse Specialist; PCP Family Medicine; Referring Provider Family Medicine; Visit Provider Internal Medicine Hematology & Oncology
DX: C92.11 Chronic myeloid leukemia, BCR/ABL-positive, in remission (principal)
CPT/HCPCS: 36415; 80048; 80053; 81206; 83615; 85025; 99212; 99214

== ENCOUNTER 2022-05-31 10:53 | Outpatient (CLI) | payer MEDICARE, OTHER, SELFPAY ==
--- NOTE | 2022-05-31 11:36 | W.ANESCHARGE ---
Anesthesia Charges Start Date/Time Anesthesia Start Date: 05/31/22 Stop Date/Time Anesthesia Stop Date: 05/31/22 Summary Extremes of Age - Over 70 or under 1: MDA
--- NOTE | 2022-05-31 12:11 | W.ANESCHARGE ---
Anesthesia Charges Start Date/Time Anesthesia Start Date: 05/31/22 Anesthesia Start Time: 11:38 Stop Date/Time Anesthesia Stop Date: 05/31/22 Anesthesia Stop Time: 12:07
== END 2022-05-31 10:54 | disposition home or self-care (01) ==
LOC: OP CLINIC 10:53
PROVIDERS: PCP Family Medicine; Visit Provider Internal Medicine Gastroenterology
DX: Z12.11 Encounter for screening for malignant neoplasm of colon (principal); K63.5 Polyp of colon; Z86.010 Personal history of colon polyps
CPT/HCPCS: 00811; 45385; 88305; J2704

== ENCOUNTER 2022-08-18 10:30 | Outpatient (RCR) | payer MEDICARE, OTHER, SELFPAY ==
[2022-03-29 14:13] LABS: Basophils Absolute Auto 0.03 K/uL (0.00-0.30); Basophils Percent Auto 0.5 % (0.0-3.0); Eosinophils Absolute Auto 0.19 K/uL (0.00-0.50); Eosinophils Percent Auto 3.3 % (0.0-7.0); Hematocrit 35.2 % (37.0-53.0); Hemoglobin* 10.8 gm/dL (13.5-17.5); Immature Granulocytes Abs Auto 0.01 K/uL (0.00-0.30); Immature Granulocytes Pct Auto 0.2 %; Lymphocytes Percent Auto 13.5 % (20-44); Mean Corpuscular HGB Conc 31 gm/dL (32-36); Mean Corpuscular Hemoglobin 27 pg (26-34); Mean Corpuscular Volume 89 fL (80-100); Monocytes Percent Auto 13.5 % (0.0-11.0); Neutrophils Absolute Auto 3.98 K/uL (1.7-7.0); Platelet Count* 140 K/uL (140-440); RDW Coefficient of Variation % 15.3 % (11.5-15.5); Red Blood Count 3.95 m/uL (4.30-5.90); White Blood Count* 5.77 K/uL (4.50-11.00)
[2022-03-29 14:32] LABS: Slide Review Reflex No
[2022-03-29 14:41] LABS: Albumin* 4.5 g/dL (3.3-5.0)
[2022-03-29 14:42] LABS: Chloride* 111 mmol/L (96-114); Sodium* 141 mmol/L (135-149)
[2022-03-29 14:44] LABS: Aspartate Amino Transferase* 30 U/L (12-35); Bilirubin Total* 0.4 mg/dL (0.1-1.5); Carbon Dioxide* 24 mmol/L (20-32); Creatinine* 1.7 mg/dL (0.5-1.5); Estimated Glomerular Filt Rate 42 ml/min; Total Protein* 8.1 g/dL (6.0-8.3)
[2022-03-29 14:45] LABS: Alanine Aminotransferase* 23 U/L (4-50); Alkaline Phosphatase* 80 U/L (40-150); Blood Urea Nitrogen* 26 mg/dL (7-30); Calcium* 8.8 mg/dL (8.4-10.6); Glucose* 85 mg/dL (60-115)
--- NOTE | 2022-03-31 11:37 | ONC.NURNOTE ---
EKG reviewed by Dr Patel on Tuesday and called to Jewel today noted trending change in QTc patient with reports of acid reflux on occasion but no changes in his activity tolerance or pain in the chest area or SOB continuing on bosulif dose 500mg/day to discuss further with Dr Cade next week
--- NOTE | 2022-04-07 12:52 | ONC.NURNOTE ---
EKG results reviewed by Dr Cade orders received to hold bosulif X 2 weeks and then recheck EKG in 2 weeks patient called with this information and appts made Marco Antonio confirmed he understands not to take the bosulif through 04/19/22
[2022-05-03 10:35] LABS: Basophils Absolute Auto 0.04 K/uL (0.00-0.30); Basophils Percent Auto 0.7 % (0.0-3.0); Eosinophils Absolute Auto 0.24 K/uL (0.00-0.50); Eosinophils Percent Auto 4.4 % (0.0-7.0); Hematocrit 37.5 % (37.0-53.0); Hemoglobin* 11.6 gm/dL (13.5-17.5); Immature Granulocytes Abs Auto 0.02 K/uL (0.00-0.30); Immature Granulocytes Pct Auto 0.4 %; Lymphocytes Percent Auto 17.9 % (20-44); Mean Corpuscular HGB Conc 31 gm/dL (32-36); Mean Corpuscular Hemoglobin 28 pg (26-34); Mean Corpuscular Volume 90 fL (80-100); Monocytes Percent Auto 9.6 % (0.0-11.0); Neutrophils Absolute Auto 3.62 K/uL (1.7-7.0); Platelet Count* 150 K/uL (140-440); RDW Coefficient of Variation % 14.5 % (11.5-15.5); Red Blood Count 4.17 m/uL (4.30-5.90); White Blood Count* 5.41 K/uL (4.50-11.00)
[2022-05-03 10:44] LABS: Slide Review Reflex No
[2022-05-03 10:47] LABS: Chloride* 110 mmol/L (96-114); Potassium* 4.9 mmol/L (3.6-5.1); Sodium* 142 mmol/L (135-149)
[2022-05-03 10:49] LABS: Estimated Glomerular Filt Rate 34 ml/min
[2022-05-03 10:50] LABS: Alanine Aminotransferase* 19 U/L (4-50); Alkaline Phosphatase* 58 U/L (40-150); Aspartate Amino Transferase* 26 U/L (12-35); Bilirubin Total* 0.3 mg/dL (0.1-1.5); Blood Urea Nitrogen* 32 mg/dL (7-30); Calcium* 9.3 mg/dL (8.4-10.6); Carbon Dioxide* 24 mmol/L (20-32); Glucose* 106 mg/dL (60-115); Total Protein* 7.3 g/dL (6.0-8.3)
--- NOTE | 2022-05-04 15:25 | ONC.NURNOTE ---
Addendum entered by Shaye Washington RN 05/06/22 17:01: Dr. Kidd told patient couldn't get into cardiology until 06/11 so order placed for another EKG around May 15 then will reconsider Bosulif. Original Note: Cobbler Mckay talked with Dr. Kidd and at this time she would like him to be seen by cardiology. Patient calling [facility] to get in and then will let us know when his appointment is.
[2022-05-11 13:20] LABS: QuantBCR-ABL Major p210 Source Whole Blood; QuantBCR-ABLMajor p210 IS % 0.0788 %
--- NOTE | 2022-05-11 14:45 | ONC.NURNOTE ---
[employer] adverse event reporting completed by this residential mortgage underwriter and mailed back to [facility] for QTc prolongation
[2022-05-14 11:00] VITALS: BP 129/76; PULSE 82; RESP 16; TEMP 36.1; O2SAT 99
--- NOTE | 2022-05-14 11:04 | ONC.NURNOTE ---
states feeling well. vs wnl. states bp better after taking a new med. Lorsartin 50mg daily. 129/76- 82. no change in ekg. left for Dr. Kidd to see tuesday,.
[2022-06-21 10:49] LABS: Basophils Absolute Auto 0.03 K/uL (0.00-0.30); Basophils Percent Auto 0.4 % (0.0-3.0); Eosinophils Absolute Auto 0.12 K/uL (0.00-0.50); Eosinophils Percent Auto 1.5 % (0.0-7.0); Hematocrit 40.1 % (37.0-53.0); Hemoglobin* 12.5 gm/dL (13.5-17.5); Immature Granulocytes Abs Auto 0.01 K/uL (0.00-0.30); Immature Granulocytes Pct Auto 0.1 %; Lymphocytes Percent Auto 7.8 % (20-44); Mean Corpuscular HGB Conc 31 gm/dL (32-36); Mean Corpuscular Hemoglobin 28 pg (26-34); Mean Corpuscular Volume 90 fL (80-100); Monocytes Percent Auto 9.9 % (0.0-11.0); Neutrophils Percent Auto 80.3 % (42.0-72.0); Platelet Count* 138 K/uL (140-440); RDW Coefficient of Variation % 13.9 % (11.5-15.5); Red Blood Count 4.47 m/uL (4.30-5.90); White Blood Count* 7.96 K/uL (4.50-11.00)
[2022-06-21 10:53] LABS: Slide Review Reflex No
[2022-06-21 11:30] LABS: Albumin* 4.7 g/dL (3.3-5.0); Chloride* 109 mmol/L (96-114); Potassium* 4.8 mmol/L (3.6-5.1); Sodium* 142 mmol/L (135-149)
[2022-06-21 11:32] LABS: Creatinine* 2.3 mg/dL (0.5-1.5); Estimated Glomerular Filt Rate 29 ml/min
[2022-06-21 11:33] LABS: Alanine Aminotransferase* 22 U/L (4-50); Alkaline Phosphatase* 93 U/L (40-150); Aspartate Amino Transferase* 28 U/L (12-35); Bilirubin Total* 0.2 mg/dL (0.1-1.5); Blood Urea Nitrogen* 37 mg/dL (7-30); Carbon Dioxide* 21 mmol/L (20-32); Glucose* 103 mg/dL (60-115); Total Protein* 8.4 g/dL (6.0-8.3)
--- NOTE | 2022-06-22 12:27 | ONC.NURNOTE ---
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
[2022-07-19 10:43] LABS: Basophils Absolute Auto 0.02 K/uL (0.00-0.30); Basophils Percent Auto 0.4 % (0.0-3.0); Eosinophils Absolute Auto 0.16 K/uL (0.00-0.50); Eosinophils Percent Auto 2.8 % (0.0-7.0); Hematocrit 38.7 % (37.0-53.0); Hemoglobin* 12.1 gm/dL (13.5-17.5); Immature Granulocytes Abs Auto 0.01 K/uL (0.00-0.30); Immature Granulocytes Pct Auto 0.2 %; Lymphocytes Percent Auto 13.9 % (20-44); Mean Corpuscular HGB Conc 31 gm/dL (32-36); Mean Corpuscular Hemoglobin 28 pg (26-34); Mean Corpuscular Volume 89 fL (80-100); Monocytes Percent Auto 8.2 % (0.0-11.0); Neutrophils Percent Auto 74.5 % (42.0-72.0); Platelet Count* 150 K/uL (140-440); RDW Coefficient of Variation % 14.1 % (11.5-15.5); Red Blood Count 4.36 m/uL (4.30-5.90)
[2022-07-19 10:50] LABS: Slide Review Reflex No
[2022-07-19 11:06] LABS: Chloride* 111 mmol/L (96-114)
[2022-07-19 11:07] LABS: Albumin* 4.6 g/dL (3.3-5.0); Potassium* 4.6 mmol/L (3.6-5.1); Sodium* 145 mmol/L (135-149)
[2022-07-19 11:09] LABS: Bilirubin Total* 0.3 mg/dL (0.1-1.5); Carbon Dioxide* 23 mmol/L (20-32); Estimated Glomerular Filt Rate 34 ml/min
[2022-07-19 11:10] LABS: Alanine Aminotransferase* 17 U/L (4-50); Alkaline Phosphatase* 72 U/L (40-150); Aspartate Amino Transferase* 24 U/L (12-35); Blood Urea Nitrogen* 35 mg/dL (7-30); Glucose* 103 mg/dL (60-115); Total Protein* 8.2 g/dL (6.0-8.3)
--- NOTE | 2022-07-21 12:24 | ONC.NURNOTE ---
Labs reviewed and called to patient reports no concerns with mathew
--- NOTE | 2022-07-22 13:23 | ONC.NURNOTE ---
Message left on voice mail to call for lab results and status check in with virgilf otherwise stable labs
[2022-08-16 10:14] LABS: Basophils Absolute Auto 0.02 K/uL (0.00-0.30); Basophils Percent Auto 0.3 % (0.0-3.0); Eosinophils Absolute Auto 0.14 K/uL (0.00-0.50); Eosinophils Percent Auto 2.2 % (0.0-7.0); Hematocrit 38.8 % (37.0-53.0); Hemoglobin* 12.1 gm/dL (13.5-17.5); Immature Granulocytes Abs Auto 0.02 K/uL (0.00-0.30); Immature Granulocytes Pct Auto 0.3 %; Lymphocytes Percent Auto 15.7 % (20-44); Mean Corpuscular HGB Conc 31 gm/dL (32-36); Mean Corpuscular Hemoglobin 28 pg (26-34); Mean Corpuscular Volume 89 fL (80-100); Monocytes Percent Auto 8.9 % (0.0-11.0); Neutrophils Percent Auto 72.6 % (42.0-72.0); Platelet Count* 143 K/uL (140-440); RDW Coefficient of Variation % 13.8 % (11.5-15.5); Red Blood Count 4.38 m/uL (4.30-5.90); White Blood Count* 6.31 K/uL (4.50-11.00)
[2022-08-16 10:15] LABS: Slide Review Reflex No
[2022-08-16 10:27] LABS: Albumin* 4.5 g/dL (3.3-5.0); Chloride* 109 mmol/L (96-114); Potassium* 4.6 mmol/L (3.6-5.1); Sodium* 141 mmol/L (135-149)
[2022-08-16 10:29] LABS: Bilirubin Total* 0.3 mg/dL (0.1-1.5); Carbon Dioxide* 22 mmol/L (20-32); Creatinine* 2.2 mg/dL (0.5-1.5); Estimated Glomerular Filt Rate 30 ml/min
[2022-08-16 10:30] LABS: Alanine Aminotransferase* 19 U/L (4-50); Alkaline Phosphatase* 80 U/L (40-150); Aspartate Amino Transferase* 28 U/L (12-35); Blood Urea Nitrogen* 31 mg/dL (7-30); Calcium* 9.3 mg/dL (8.4-10.6); Glucose* 110 mg/dL (60-115); Lactate Dehydrogenase* 314 U/L (120-246); Total Protein* 8.2 g/dL (6.0-8.3)
--- NOTE | 2022-08-18 09:59 | ONC.NURNOTE ---
BCR/ABl needed to be redrawn today labs reviewed with patient when here reports no concerns or changes with Bosulif will be out of town for 3 weeks leaving 08/27 next appt moved to 09/27 when returns will watch for BCR/ABL results
[2022-08-25 14:16] LABS: QuantBCR-ABL Major p210 Result Detected; QuantBCR-ABL Major p210 Source Whole Blood
== END 2022-09-25 23:59 | disposition home or self-care (01) ==
LOC: CCIC 10:30
PROVIDERS: PCP Family Medicine; Referring Provider Family Medicine; Visit Provider Internal Medicine Hematology & Oncology
DX: C92.11 Chronic myeloid leukemia, BCR/ABL-positive, in remission (principal)
CPT/HCPCS: 36415; 80053; 81206; 83615; 85025; 93005; 99212; 99215

== ENCOUNTER 2023-03-16 08:00 | Outpatient (RCR) | payer MEDICARE, OTHER, SELFPAY ==
[2022-09-27 14:18] LABS: Basophils Absolute Auto 0.04 K/uL (0.00-0.30); Basophils Percent Auto 0.6 % (0.0-3.0); Eosinophils Absolute Auto 0.11 K/uL (0.00-0.50); Eosinophils Percent Auto 1.6 % (0.0-7.0); Hemoglobin* 11.9 gm/dL (13.5-17.5); Immature Granulocytes Abs Auto 0.02 K/uL (0.00-0.30); Immature Granulocytes Pct Auto 0.3 %; Lymphocytes Percent Auto 13.5 % (20-44); Mean Corpuscular HGB Conc 31 gm/dL (32-36); Mean Corpuscular Hemoglobin 28 pg (26-34); Mean Corpuscular Volume 89 fL (80-100); Monocytes Percent Auto 7.6 % (0.0-11.0); Neutrophils Percent Auto 76.4 % (42.0-72.0); Platelet Count* 131 K/uL (140-440); Red Blood Count 4.27 m/uL (4.30-5.90); White Blood Count* 6.97 K/uL (4.50-11.00)
[2022-09-27 14:29] LABS: Albumin* 4.6 g/dL (3.3-5.0); Chloride* 109 mmol/L (96-114)
[2022-09-27 14:30] LABS: Potassium* 4.6 mmol/L (3.6-5.1); Sodium* 140 mmol/L (135-149)
[2022-09-27 14:32] LABS: Alanine Aminotransferase* 19 U/L (4-50); Alkaline Phosphatase* 93 U/L (40-150); Aspartate Amino Transferase* 30 U/L (12-35); Bilirubin Total* 0.4 mg/dL (0.1-1.5); Blood Urea Nitrogen* 23 mg/dL (7-30); Carbon Dioxide* 20 mmol/L (20-32); Creatinine* 1.7 mg/dL (0.5-1.5); Estimated Glomerular Filt Rate 42 ml/min; Glucose* 87 mg/dL (60-115); Total Protein* 8.4 g/dL (6.0-8.3)
[2022-09-27 14:33] LABS: Calcium* 8.9 mg/dL (8.4-10.6)
[2022-09-27 14:47] LABS: Slide Review Reflex No
--- NOTE | 2022-09-28 11:13 | ONC.NURNOTE ---
Dose change reviewed with patient and new RX's faxed to [facility] yesterday patient aware that he needs to call today to schedule deliver
[2022-10-25 10:32] LABS: Basophils Absolute Auto 0.03 K/uL (0.00-0.30); Basophils Percent Auto 0.4 % (0.0-3.0); Eosinophils Percent Auto 2.6 % (0.0-7.0); Hematocrit 37.3 % (37.0-53.0); Hemoglobin* 11.7 gm/dL (13.5-17.5); Immature Granulocytes Abs Auto 0.01 K/uL (0.00-0.30); Immature Granulocytes Pct Auto 0.1 %; Lymphocytes Percent Auto 11.4 % (20-44); Mean Corpuscular HGB Conc 31 gm/dL (32-36); Mean Corpuscular Hemoglobin 28 pg (26-34); Mean Corpuscular Volume 91 fL (80-100); Monocytes Percent Auto 9.3 % (0.0-11.0); Neutrophils Percent Auto 76.2 % (42.0-72.0); Platelet Count* 158 K/uL (140-440); RDW Coefficient of Variation % 13.5 % (11.5-15.5); Red Blood Count 4.12 m/uL (4.30-5.90); White Blood Count* 7.65 K/uL (4.50-11.00)
[2022-10-25 10:48] LABS: Albumin* 4.6 g/dL (3.3-5.0); Chloride* 110 mmol/L (96-114); Potassium* 4.7 mmol/L (3.6-5.1); Sodium* 141 mmol/L (135-149)
[2022-10-25 10:50] LABS: Bilirubin Total* 0.3 mg/dL (0.1-1.5); Creatinine* 1.8 mg/dL (0.5-1.5); Estimated Glomerular Filt Rate 39 ml/min; Slide Review Reflex No
[2022-10-25 10:51] LABS: Alanine Aminotransferase* 19 U/L (4-50); Alkaline Phosphatase* 91 U/L (40-150); Anion Gap 11 mEq/L (7-15); Aspartate Amino Transferase* 30 U/L (12-35); Blood Urea Nitrogen* 34 mg/dL (7-30); Calcium* 9.2 mg/dL (8.4-10.6); Carbon Dioxide* 20 mmol/L (20-32); Glucose* 97 mg/dL (60-115); Total Protein* 8.3 g/dL (6.0-8.3)
--- NOTE | 2022-10-25 14:49 | ONC.NURNOTE ---
Lab results reviewed by Dr Kidd and called to MANUEL BCR/ABl due next month EKG due in December
[2022-11-22 10:25] LABS: Basophils Absolute Auto 0.03 K/uL (0.00-0.30); Basophils Percent Auto 0.5 % (0.0-3.0); Eosinophils Percent Auto 3.4 % (0.0-7.0); Hematocrit 37.6 % (37.0-53.0); Hemoglobin* 11.5 gm/dL (13.5-17.5); Lymphocytes Percent Auto 16.5 % (20-44); Mean Corpuscular HGB Conc 31 gm/dL (32-36); Mean Corpuscular Hemoglobin 28 pg (26-34); Mean Corpuscular Volume 92 fL (80-100); Monocytes Percent Auto 11.4 % (0.0-11.0); Neutrophils Absolute Auto 4.05 K/uL (1.7-7.0); Neutrophils Percent Auto 68.2 % (42.0-72.0); Platelet Count* 131 K/uL (140-440); RDW Coefficient of Variation % 13.2 % (11.5-15.5); Red Blood Count 4.08 m/uL (4.30-5.90); White Blood Count* 5.94 K/uL (4.50-11.00)
[2022-11-22 10:26] LABS: Slide Review Reflex No
[2022-11-22 10:53] LABS: Albumin* 4.2 g/dL (3.3-5.0); Chloride* 112 mmol/L (96-114)
[2022-11-22 10:54] LABS: Potassium* 4.6 mmol/L (3.6-5.1); Sodium* 145 mmol/L (135-149)
[2022-11-22 10:56] LABS: Anion Gap 11 mEq/L (7-15); Aspartate Amino Transferase* 28 U/L (12-35); Bilirubin Total* 0.2 mg/dL (0.1-1.5); Carbon Dioxide* 22 mmol/L (20-32); Creatinine* 1.7 mg/dL (0.5-1.5); Estimated Glomerular Filt Rate 42 ml/min; Total Protein* 7.7 g/dL (6.0-8.3)
[2022-11-22 10:57] LABS: Alanine Aminotransferase* 17 U/L (4-50); Alkaline Phosphatase* 73 U/L (40-150); Blood Urea Nitrogen* 28 mg/dL (7-30); Calcium* 8.9 mg/dL (8.4-10.6); Glucose* 97 mg/dL (60-115)
--- NOTE | 2022-11-22 13:09 | ONC.NURNOTE ---
Lab results called to patient as stable. BCR/ABL due in Nov with labs and follow up appt results to be reviewed by Dr Kidd
--- NOTE | 2022-11-24 15:03 | ONC.NURNOTE ---
EKG reviewed by Dr Kidd QTc stable from 05/2022 results also faxed to Dr De La Fuente- Cardiology at [phone]
[2022-12-20 10:33] LABS: Basophils Absolute Auto 0.02 K/uL (0.00-0.30); Basophils Percent Auto 0.3 % (0.0-3.0); Eosinophils Absolute Auto 0.21 K/uL (0.00-0.50); Eosinophils Percent Auto 2.9 % (0.0-7.0); Hematocrit 38.9 % (37.0-53.0); Immature Granulocytes Abs Auto 0.01 K/uL (0.00-0.30); Immature Granulocytes Pct Auto 0.1 %; Lymphocytes Percent Auto 15.8 % (20-44); Mean Corpuscular HGB Conc 31 gm/dL (32-36); Mean Corpuscular Hemoglobin 28 pg (26-34); Mean Corpuscular Volume 91 fL (80-100); Monocytes Percent Auto 9.7 % (0.0-11.0); Neutrophils Absolute Auto 5.15 K/uL (1.7-7.0); Neutrophils Percent Auto 71.2 % (42.0-72.0); Platelet Count* 137 K/uL (140-440); RDW Coefficient of Variation % 13.5 % (11.5-15.5); Red Blood Count 4.28 m/uL (4.30-5.90); White Blood Count* 7.23 K/uL (4.50-11.00)
[2022-12-20 10:37] LABS: Slide Review Reflex No
[2022-12-20 10:54] LABS: Albumin* 4.5 g/dL (3.3-5.0); Chloride* 111 mmol/L (96-114); Potassium* 5.1 mmol/L (3.6-5.1); Sodium* 142 mmol/L (135-149)
[2022-12-20 10:57] LABS: Alanine Aminotransferase* 17 U/L (4-50); Alkaline Phosphatase* 79 U/L (40-150); Anion Gap 10 mEq/L (7-15); Aspartate Amino Transferase* 31 U/L (12-35); Bilirubin Total* 0.3 mg/dL (0.1-1.5); Blood Urea Nitrogen* 30 mg/dL (7-30); Calcium* 9.1 mg/dL (8.4-10.6); Carbon Dioxide* 21 mmol/L (20-32); Creatinine* 1.9 mg/dL (0.5-1.5); Estimated Glomerular Filt Rate 36 ml/min; Glucose* 99 mg/dL (60-115); Lactate Dehydrogenase* 352 U/L (120-246); Total Protein* 8.1 g/dL (6.0-8.3)
--- NOTE | 2022-12-21 14:06 | ONC.NURNOTE ---
Lab results reviewed by phone julio c Bernard returns to see Dr Kidd in 2 wks results stable for patient Creat noted BCR ABL pending
[2022-12-24 22:08] LABS: QuantBCR-ABL Major p210 Result Detected; QuantBCR-ABL Major p210 Source Not Provided; QuantBCR-ABLMajor p210 IS % 0.0546 %
[2023-01-17 11:25] LABS: Basophils Absolute Auto 0.03 K/uL (0.00-0.30); Basophils Percent Auto 0.5 % (0.0-3.0); Eosinophils Absolute Auto 0.29 K/uL (0.00-0.50); Eosinophils Percent Auto 4.9 % (0.0-7.0); Hematocrit 38.6 % (37.0-53.0); Hemoglobin* 11.7 gm/dL (13.5-17.5); Immature Granulocytes Abs Auto 0.01 K/uL (0.00-0.30); Immature Granulocytes Pct Auto 0.2 %; Lymphocytes Absolute Auto 1.22 K/uL (0.90-2.90); Lymphocytes Percent Auto 20.8 % (20-44); Mean Corpuscular HGB Conc 30 gm/dL (32-36); Mean Corpuscular Hemoglobin 28 pg (26-34); Mean Corpuscular Volume 92 fL (80-100); Monocytes Percent Auto 9.7 % (0.0-11.0); Neutrophils Absolute Auto 3.75 K/uL (1.7-7.0); Neutrophils Percent Auto 63.9 % (42.0-72.0); Platelet Count* 170 K/uL (140-440); RDW Coefficient of Variation % 13.3 % (11.5-15.5); White Blood Count* 5.87 K/uL (4.50-11.00)
[2023-01-17 11:27] LABS: Slide Review Reflex No
[2023-01-17 11:37] LABS: Albumin* 4.5 g/dL (3.3-5.0); Chloride* 114 mmol/L (96-114); Sodium* 145 mmol/L (135-149)
[2023-01-17 11:40] LABS: Alanine Aminotransferase* 18 U/L (4-50); Alkaline Phosphatase* 63 U/L (40-150); Anion Gap 8 mEq/L (7-15); Aspartate Amino Transferase* 27 U/L (12-35); Bilirubin Total* 0.1 mg/dL (0.1-1.5); Blood Urea Nitrogen* 37 mg/dL (7-30); Calcium* 9.4 mg/dL (8.4-10.6); Carbon Dioxide* 23 mmol/L (20-32); Creatinine* 1.9 mg/dL (0.5-1.5); Estimated Glomerular Filt Rate 36 ml/min; Glucose* 103 mg/dL (60-115); Total Protein* 7.8 g/dL (6.0-8.3)
--- NOTE | 2023-01-18 09:49 | ONC.NURNOTE ---
Lab results called to Marco Antonio- message left on VM that labs are within his normal
[2023-02-16 09:13] LABS: Basophils Absolute Auto 0.03 K/uL (0.00-0.30); Basophils Percent Auto 0.5 % (0.0-3.0); Eosinophils Absolute Auto 0.26 K/uL (0.00-0.50); Eosinophils Percent Auto 4.1 % (0.0-7.0); Immature Granulocytes Abs Auto 0.05 K/uL (0.00-0.30); Immature Granulocytes Pct Auto 0.8 %; Lymphocytes Absolute Auto 1.37 K/uL (0.90-2.90); Lymphocytes Percent Auto 21.6 % (20-44); Mean Corpuscular HGB Conc 31 gm/dL (32-36); Mean Corpuscular Hemoglobin 28 pg (26-34); Mean Corpuscular Volume 90 fL (80-100); Monocytes Percent Auto 10.3 % (0.0-11.0); Neutrophils Absolute Auto 3.98 K/uL (1.7-7.0); Neutrophils Percent Auto 62.7 % (42.0-72.0); Platelet Count* 191 K/uL (140-440); RDW Coefficient of Variation % 13.5 % (11.5-15.5); Red Blood Count 4.32 m/uL (4.30-5.90); White Blood Count* 6.34 K/uL (4.50-11.00)
[2023-02-16 09:14] LABS: Slide Review Reflex No
[2023-02-16 09:32] LABS: Albumin* 4.5 g/dL (3.3-5.0)
[2023-02-16 09:33] LABS: Chloride* 111 mmol/L (96-114); Potassium* 5.1 mmol/L (3.6-5.1); Sodium* 143 mmol/L (135-149)
[2023-02-16 09:35] LABS: Anion Gap 10 mEq/L (7-15); Aspartate Amino Transferase* 26 U/L (12-35); Bilirubin Total* 0.2 mg/dL (0.1-1.5); Carbon Dioxide* 22 mmol/L (20-32); Creatinine* 1.8 mg/dL (0.5-1.5); Estimated Glomerular Filt Rate 39 ml/min
[2023-02-16 09:36] LABS: Alanine Aminotransferase* 19 U/L (4-50); Alkaline Phosphatase* 79 U/L (40-150); Blood Urea Nitrogen* 26 mg/dL (7-30); Calcium* 9.4 mg/dL (8.4-10.6); Glucose* 116 mg/dL (60-115)
--- NOTE | 2023-02-16 14:22 | ONC.NURNOTE ---
Lab results stable and reviewed by Dr Kidd- results called to patient Last EKG in November- due Q 6-12 months
--- NOTE | 2023-03-15 09:53 | ONC.NURNOTE ---
Gela application for re-enrollment with [facility] is still pending Patient has enough medication thru [facility] informed to call back if decision has not be rendered by the time the patient has 10 days or less of medication call to Marco Antonio with this update
[2023-03-16 08:27] LABS: Basophils Absolute Auto 0.02 K/uL (0.00-0.30); Basophils Percent Auto 0.3 % (0.0-3.0); Eosinophils Absolute Auto 0.15 K/uL (0.00-0.50); Eosinophils Percent Auto 2.2 % (0.0-7.0); Hematocrit 35.2 % (37.0-53.0); Hemoglobin* 10.8 gm/dL (13.5-17.5); Immature Granulocytes Abs Auto 0.05 K/uL (0.00-0.30); Immature Granulocytes Pct Auto 0.7 %; Lymphocytes Percent Auto 19.1 % (20-44); Mean Corpuscular HGB Conc 31 gm/dL (32-36); Mean Corpuscular Hemoglobin 28 pg (26-34); Mean Corpuscular Volume 91 fL (80-100); Monocytes Percent Auto 8.3 % (0.0-11.0); Neutrophils Absolute Auto 4.79 K/uL (1.7-7.0); Neutrophils Percent Auto 69.4 % (42.0-72.0); Platelet Count* 142 K/uL (140-440); RDW Coefficient of Variation % 14.5 % (11.5-15.5); Red Blood Count 3.85 m/uL (4.30-5.90)
[2023-03-16 08:30] LABS: Slide Review Reflex No
[2023-03-16 08:43] LABS: Albumin* 4.1 g/dL (3.3-5.0)
[2023-03-16 08:44] LABS: Chloride* 114 mmol/L (96-114); Potassium* 4.4 mmol/L (3.6-5.1); Sodium* 141 mmol/L (135-149)
[2023-03-16 08:46] LABS: Anion Gap 8 mEq/L (7-15); Aspartate Amino Transferase* 25 U/L (12-35); Bilirubin Total* 0.1 mg/dL (0.1-1.5); Carbon Dioxide* 19 mmol/L (20-32); Creatinine* 1.7 mg/dL (0.5-1.5); Estimated Glomerular Filt Rate 42 ml/min; Total Protein* 7.2 g/dL (6.0-8.3)
[2023-03-16 08:47] LABS: Alanine Aminotransferase* 16 U/L (4-50); Alkaline Phosphatase* 60 U/L (40-150); Blood Urea Nitrogen* 32 mg/dL (7-30); Calcium* 8.3 mg/dL (8.4-10.6); Glucose* 102 mg/dL (60-115)
--- NOTE | 2023-03-16 14:11 | ONC.NURNOTE ---
Lab results reviewed by Dr chan- and called to Marco Antonio as stable no changes- next appts reviewed
== END 2023-03-26 23:59 | disposition home or self-care (01) ==
LOC: CCIC 08:00
PROVIDERS: PCP Family Medicine; Referring Provider Family Medicine; Visit Provider Internal Medicine Hematology & Oncology
DX: C92.11 Chronic myeloid leukemia, BCR/ABL-positive, in remission (principal)
CPT/HCPCS: 36415; 80053; 81206; 83615; 85025; 99212; 99214; 99215

== ENCOUNTER 2023-05-09 13:00 | Emergency (ER) | payer MEDICARE, OTHER, SELFPAY ==
[2023-05-09 13:07] VITALS: BP 109/62; PULSE 80; RESP 18; TEMP 36.1; O2SAT 97; BMI 25.8
[2023-05-09 13:45] LABS: Appearance Urine Cloudy (Clear); Bilirubin Urine 1+ (Negative); Blood Urine 3+ (Negative); Color Urine Red (Yellow); Glucose Urine Negative (Negative); Ketones Urine Negative (Negative); Leukocyte Esterase Urine Negative (Negative); Nitrite Urine Negative (Negative); Protein Urine 2+ (Negative); Specific Gravity Urine 1.025 (1.000-1.030); Urobilinogen Urine 0.2 (0.2-1.0)
[2023-05-09 13:52] LABS: RBC Urine >100 (0-2); Squamous Epithelial Cell Urine Few (None-Few); WBC Urine 0-2 (0-5)
--- NOTE | 2023-05-09 13:56 | ED.MALEGU ---
HPI - Male Genitourinary General Time Seen by Provider: 13:57 Date Seen: 05/09/23 Chief complaint: Urogenital Problems, Male Stated complaint: Blood in urine for 1wk Time Seen by Provider: 05/09/23 13:10 Source: patient and RN notes reviewed Mode of arrival: ambulatory Limitations: no limitations History of Present Illness HPI Narrative: This 77-year-old male is ambulatory into the ED for painless hematuria for over a week now. He has noted blood in his urine without any dysuria, without any difficulty urinating for over a week now. He has been unsuccessful getting into his primary clinic per report. He has had no abdominal pain, no history kidney stones, no history of workup for hematuria. He has had no prior hematuria. 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 He is on no blood thinners, no aspirin. There has been no trauma. No fevers or chills. Urinalysis was left in triage, I was able to review with him that he has hematuria without any bacteria, we will still do urine culture. We have discussed workup for painless hematuria. Related Data Home Medications Medication Instructions Recorded Confirmed acetaminophen 500 mg capsule 500 mg PO Q6H PRN 08/24/21 04/20/23 bupropion HCl 150 mg 24 hr tablet, 150 mg PO DAILY 08/24/21 04/20/23 extended release gabapentin 300 mg capsule 300 mg PO DAILY 08/24/21 04/20/23 nitroglycerin 0.4 mg sublingual 0.4 mg sublingual Q5-15M PRN 08/24/21 04/20/23 tablet rosuvastatin 20 mg tablet 20 mg PO .QHS 08/24/21 04/20/23 topiramate 100 mg tablet 100 mg PO .QHS 08/24/21 04/20/23 nifedipine 30 mg tablet,extended 30 mg PO DAILY 06/22/22 04/20/23 release Previous Rx's Medication Instructions Recorded bosutinib 100 mg tablet 100 mg PO QDAY #30 tabs 09/27/22 bosutinib 500 mg tablet 500 mg PO DAILY #30 tabs 09/27/22 Allergies Allergy/AdvReac Type Severity Reaction Status Date / Time Chlorhexidine Allergy Uncoded 09/13/21 10:41 Review of Systems Status of ROS: Reports: 6 or more systems reviewed and unremarkable except as noted in History and below PFSH PFS Medical History GER[place]IA (acute kidney injury) ?N17.9 - Acute kidney failure, unspecified (ICD-10) 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) Thrombocytopenia ?D69.6 - Thrombocytopenia, unspecified (ICD-10) Rib injury ?S29.9XXA - Unspecified injury of thorax, initial encounter (ICD-10) Lung nodule ?R91.1 - Solitary pulmonary nodule (ICD-10) Hypovolemic shock ?R57.1 - Hypovolemic shock (ICD-10) Hypertension ?I10 - Essential (primary) hypertension (ICD-10) Gastrointestinal hemorrhage due to nonsteroidal antiinflammatory drug ?K92.2 - Gastrointestinal hemorrhage, unspecified (ICD-10) ?T39.395A - Adverse effect of other nonsteroidal anti-inflammatory drugs [NSAID], initial encounter (ICD-10) Fatigue ?R53.83 - Other fatigue (ICD-10) Anemia ?D64.9 - Anemia, unspecified (ICD-10) Abrasion of left cornea ?S05.02XA - Injury of conjunctiva and corneal abrasion without foreign body, left eye, initial encounter (ICD-10) Pleural effusion ?J90 - Pleural effusion, not elsewhere classified (ICD-10) History of malignant neoplasm of testis ?Z85.47 - Personal history of malignant neoplasm of testis (ICD-10) 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 - Chronic myeloid leukemia, BCR/ABL-positive, in remission (ICD-10) Anemia due to acute blood loss ?D62 - Acute posthemorrhagic anemia (ICD-10) Vestibular migraine ?G43.809 - Other migraine, not intractable, without status migrainosus (ICD-10) Aortic stenosis ?I35.0 - Nonrheumatic aortic (valve) stenosis (ICD-10) QT prolongation ?R94.31 - Abnormal electrocardiogram [ECG] [EKG] (ICD-10) Surgical History S/P TAVR (transcatheter aortic valve replacement) ?Z95.2 - Presence of prosthetic heart valve (ICD-10) Social History Smoking Status: Never smoker Do you use any of these nicotine containing products: None Second hand tobacco smoke exposure: No How often do you have a drink containing alcohol: never How often do you have six or more drinks on one occasion: Never AUDIT-C Alcohol total score: 0 Non-prescribed substance use: denies use service: No Exam Const: Vital Signs, click to edit/add: Vital Signs - 24 hr 05/09/23 13:07 Temperature 97.0 F L Pulse Rate [Right Pulse Oximeter] 80 Respiratory Rate 18 Blood Pressure [Le ft Upper Arm] 109/62 Pulse Oximetry 97 Oxygen Delivery Me thod Room Air This 77-year-old male is ambulatory into the ED of his own accord. Very well-kept, alert, interactive, very pleasant. Face atraumatic, sclera clear. Lungs clear without any wheeze or crackles, breathing easy on room air, speech is normal. CV regular rate and rhythm, no significant murmur, normal S1-S2. Abdomen is soft, nontender, nondistended, no organomegaly. Documenting provider has reviewed patient's vital signs: yes Course Course ED Course: This is a patient with painless hematuria. He is aware that he will ultimately likely need to see Urology with completion of workup with cystoscopy. At this time, will obtain basic labs including chemistries and a CBC. He has had some remote history of thrombocytopenia, has no other sites of bleeding so doubt that he is significantly thrombocytopenic to the point where you would have hematuria. We will do the CT urogram to look at underlying intra-abdominal pathology within the urinary system. He has no obstructive symptomatology at this point which is good. Reevaluation(s) Time of Reevaluation #1: 16:31 Reevaluation #1: Reviewed patient's CT with him, does appear that there is a bladder mass. We discussed the workup for painless hematuria again. He needs to see Urology and needs a cystoscopy. He does go to [facility], will contact Urology on-call at [place] in see if we can facilitate an outpatient appointment for him. He does not require hospitalization at this point, is still urinating without difficulty. He has no evidence of significant blood loss, hemoglobin is stable. Consultations Consultation #1: Have contacted on-call urology at [place], spoke with Dr. Echeverria. I have reviewed the case with him, asked if there is any way that this patient could be scheduled for outpatient Urology consultation. He obviously will need a cystoscopy in the next part of the workup. We did review patient's status, I do not feel he requires hospitalization. Dr. Echeverria has kindly given some guidelines and will help getting this patient in to see him. Time: 16:56 Vital Signs Vital signs: Initial Vital Signs Temperature 97.0 F L 05/09/23 13:07 Temperature Source Temporal Artery Scan 05/09/23 13:07 Pulse Rate 80 05/09/23 13:07 Respiratory Rate 18 05/09/23 13:07 Blood Pressure 109/62 05/09/23 13:07 Blood Pressure Mean 77 05/09/23 13:07 Blood Pressure Position Sitting 05/09/23 13:07 Pulse Oximetry 97 05/09/23 13:07 Oxygen Delivery Method Room Air 05/09/23 13:07 Vital Signs Temperature 97.0 F L 05/09/23 13:07 Pulse Rate 80 05/09/23 13:07 Respiratory Rate 18 05/09/23 13:07 Blood Pressure 109/62 05/09/23 13:07 Pulse Oximetry 97 05/09/23 13:07 Oxygen Delivery Method Room Air 05/09/23 13:07 Temperature 97.0 F L 05/09/23 13:07 Pulse Rate 80 05/09/23 13:07 Respiratory Rate 18 05/09/23 13:07 Blood Pressure 109/62 05/09/23 13:07 Pulse Oximetry 97 05/09/23 13:07 Oxygen Delivery Method Room Air 05/09/23 13:07 MDM - Male Genitourinary Lab Data Attestation: I reviewed the patient's lab results. Labs: Lab Results 05/09/23 05/09/23 Range/Units 13:10 14:10 WBC 7.72 (4.50-11.00) K/uL RBC 4.08 L (4.30-5.90) m/uL Hgb 11.6 L (13.5-17.5) gm/dL Hct 37.4 (37.0-53.0) % MCV 92 (80-100) fL MCH 28 (26-34) pg MCHC 31 L (32-36) gm/dL RDW Coeff of Isha 13.8 (11.5-15.5) % Plt Count 133 L (140-440) K/uL Neut % (Auto) 74.0 H (42.0-72.0) % Lymph % (Auto) 13.5 L (20-44) % Pepin % (Auto) 9.2 (0.0-11.0) % Eos % (Auto) 2.7 (0.0-7.0) % Baso % (Auto) 0.3 (0.0-3.0) % Neut # (Auto) 5.70 (1.7-7.0) K/uL Lymph # (Auto) 1.00 (0.90-2.90) K/uL Pepin # (Auto) 0.70 (0.00-0.90) K/UL Eos # (Auto) 0.21 (0.00-0.50) K/uL Baso # (Auto) 0.02 (0.00-0.30) K/uL Abs Immat Gran (auto) 0.02 (0.00-0.30) K/uL Imm/Tot Granulo (auto) 0.3 % Sodium 141 (135-149) mmol/L Potassium 4.8 (3.6-5.1) mmol/L Chloride 112 (96-114) mmol/L Carbon Dioxide 21 (20-32) mmol/L Anion Gap 8 (7-15) mEq/L BUN 37 H (7-30) mg/dL Creatinine 1.6 H (0.5-1.5) mg/dL Estimated Creat Clear 43.78 Estimated GFR 45 ml/min Glucose 96 (60-115) mg/dL Calcium 9.3 (8.4-10.6) mg/dL Urine Color Red A (Yellow) Urine Appearance Cloudy A (Clear) Urine pH 6.0 (5.0-8.5) Ur Specific [place] 1.025 (1.000-1.030) Urine Protein 2+ A (Negative) Urine Glucose (UA) Negative (Negative) Urine Ketones Negative (Negative) Urine Blood 3+ A (Negative) Urine Nitrite Negative (Negative) Urine Bilirubin 1+ A (Negative) Urine Urobilinogen 0.2 (0.2-1.0) Ur Leukocyte Esterase Negative (Negative) Urine RBC >100 A (0-2) Urine WBC 0-2 (0-5) Ur Squamous Epith Cells Few (None-Few) Urine Bacteria None (None) Imaging Data CT scan - abdomen: Attestation: I have reviewed the pertinent imaging results. Radiologist's impression: Patient: TAMARA ORTIZ Facility:?[facility] Patient ID:?[id number] Site Patient ID:?[id number]. Site :?[id number] Study:?CT Abdomen/Pelvis UROGRAM 100CC ISOVUE 370-05/09/2023 3:23:33 PM Ordering Physician:?DR. EDWARDS Final Report: INDICATION: Hematuria TECHNIQUE: Multiplanar CT urogram of the abdomen and pelvis was performed after the administration of 100 mL Isovue 370 intravenous contrast, after utilizing a split bolus technique. COMPARISON: CT abdomen pelvis 09/13/2021. FINDINGS: Kidneys: Normal in size and symmetrically enhancing. No obstructive uropathy. No hydronephrosis or obstructive urinary calculi. No suspicious renal masses. Ureters: The ureters appear unremarkable. Bladder: Lobular soft tissue density at the left bladder trigone measuring 2.0 cm. There may be a smaller nodular density at the right bladder trigone (5:131). The bladder is partially opacified by contrast material. No bladder wall thickening. Lower chest: Round atelectasis of the right lower lobe. Small right-sided pleural effusion. Partially visualized aortic valvular replacement. Normal heart size. No definite focal consolidation. Liver: Unremarkable. Gallbladder: Unremarkable. Biliary: Unremarkable. Pancreas: Within normal limits. Spleen: Unremarkable. Adrenal glands: Unremarkable. Pelvis: Unremarkable. Gastrointestinal: No bowel wall thickening or bowel obstruction. Normal appendix. Severe sigmoid colonic diverticulosis without significant pericolonic fat stranding to suggest acute diverticulitis. Moderate colonic stool burden. Vasculature: No aortic aneurysm. The portal vein remains patent. Severe atherosclerotic calcifications of the abdominal aorta without focal aneurysm. Lymph nodes: No pathologic lymphadenopathy by size criteria. Peritoneum: No free fluid or pneumoperitoneum. No drainable fluid collections. Abdominal wall/soft tissues: Small fluid containing right inguinal hernia. Bones: Diffuse osteopenia limits evaluation for subtle nondisplaced fractures. Degenerative changes of the thoracolumbar spine. No definite acute osseous abnormalities. IMPRESSION: Abnormal masslike soft tissue density in the region of the [id number]-klov-right bladder trigone, measuring up to 2.0 cm. Urologic consultation and direct visualization with cystoscopy is advised for further evaluation. No lymphadenopathy identified. Please note that all CT scans at this facility use dose modulation, iterative reconstruction, and/or weight-based dosing when appropriate to reduce radiation dose to as low as reasonably achievable. Dictated by Juan Daniel Hill MD @ 05/09/2023 4:16:00 PM (Electronic Signature) Critical Care Time Critical Care Time Critical Care Time: No Discharge Plan Discharge Clinical Impression: Mass of bladder, Painless hematuria Patient Disposition: Home, Self-Care Condition: Stable Instructions: Hematuria (ED) Additional Instructions: Need to drink adequate fluids to help keep urine flowing. If you should develop obstructive symptoms from blood clotting, are unable to urinate, do need to be re-evaluated. You need to contact Dr. Echeverria's clinic tomorrow. He would like to see you Tuesday morning this week on the at his office in [facility], try the phone number [phone]. Please let them know that I spoke with him via phone while you were in the ER, he is aware and this is his request. 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 If you are having difficulty getting through another alternate number is [phone]. Please bring your CT report as well as the disc that has the CT images on it when you see him on Tuesday. Activity Level: Activity as Tolerated Prescriptions: No Action bosutinib 100 mg tablet 100 mg PO QDAY Qty: 30 3RF Rx Instructions: administer one x 100 mg tablet with one x 500 mg tablet for total dose = 600 mg bosutinib 500 mg tablet 500 mg PO DAILY Qty: 30 3RF Rx Instructions: administer one x 100 mg tablet with one x 500 mg tablet for total dose = 600 mg; must administer with a meal/food nifedipine 30 mg tablet extended release 30 mg PO DAILY gabapentin 300 mg capsule 300 mg PO DAILY Patient Comments: take 1 capsule by mouth once daily at bedtime. may increase to 2 capsules at bedtime after 1 week if needed. topiramate 100 mg tablet 100 mg PO .QHS Patient Comments: TAKE ONE TABLET BY MOUTH ONE TIME DAILY AT BEDTIME rosuvastatin 20 mg tablet 20 mg PO .QHS Patient Comments: Take 1 Tablet (20 mg) by mouth at bedtime. Due for cardiology follow up. Please call [phone] to schedule. bupropion HCl 150 mg tablet extended release 24 hr 150 mg PO DAILY Patient Comments: TAKE ONE TABLET BY MOUTH ONE TIME DAILY acetaminophen 500 mg capsule 500 mg PO Q6H PRN Rx Instructions: Take 1-2 every 6 hours as needed. nitroglycerin 0.4 mg tablet, sublingual 0.4 mg sublingual Q5-15M PRN Rx Instructions: do not exceed 3 doses per episode Follow Up/Referrals: Delgado Torres MD [Primary Care Provider] - Stand Alone Forms: [employer] Info Instructions
--- NOTE | 2023-05-09 14:02 | CT_ITS ---
Patient: TAMARA ORTIZ Facility:?[facility] Patient ID:?[id number] Site Patient ID:?[id number]. Site :?[id number] Study:?CT-Abdomen/Pelvis UROGRAM 100CC ISOVUE 370-05/09/2023 3:23:33 PM Ordering Physician:?DR. EDWARDS Final Report: INDICATION: Hematuria TECHNIQUE: Multiplanar CT urogram of the abdomen and pelvis was performed after the administration of 100 mL Isovue 370 intravenous contrast, after utilizing a split bolus technique. COMPARISON: CT abdomen pelvis 09/13/2021. FINDINGS: Kidneys: Normal in size and symmetrically enhancing. No obstructive uropathy. No hydronephrosis or obstructive urinary calculi. No suspicious renal masses. Ureters: The ureters appear unremarkable. Bladder: Lobular soft tissue density at the left bladder trigone measuring 2.0 cm. There may be a smaller nodular density at the right bladder trigone (5:131). The bladder is partially opacified by contrast material. No bladder wall thickening. Lower chest: Round atelectasis of the right lower lobe. Small right-sided pleural effusion. Partially visualized aortic valvular replacement. Normal heart size. No definite focal consolidation. Liver: Unremarkable. Gallbladder: Unremarkable. Biliary: Unremarkable. Pancreas: Within normal limits. Spleen: Unremarkable. Adrenal glands: Unremarkable. Pelvis: Unremarkable. Gastrointestinal: No bowel wall thickening or bowel obstruction. Normal appendix. Severe sigmoid colonic diverticulosis without significant pericolonic fat stranding to suggest acute diverticulitis. Moderate colonic stool burden. Vasculature: No aortic aneurysm. The portal vein remains patent. Severe atherosclerotic calcifications of the abdominal aorta without focal aneurysm. Lymph nodes: No pathologic lymphadenopathy by size criteria. Peritoneum: No free fluid or pneumoperitoneum. No drainable fluid collections. Abdominal wall/soft tissues: Small fluid containing right inguinal hernia. Bones: Diffuse osteopenia limits evaluation for subtle nondisplaced fractures. Degenerative changes of the thoracolumbar spine. No definite acute osseous abnormalities. IMPRESSION: Abnormal masslike soft tissue density in the region of the [id number]-nksbkkw-dges-right bladder trigone, measuring up to 2.0 cm. Urologic consultation and direct visualization with cystoscopy is advised for further evaluation. No lymphadenopathy identified. Please note that all CT scans at this facility use dose modulation, iterative reconstruction, and/or weight-based dosing when appropriate to reduce radiation dose to as low as reasonably achievable. Dictated by Juan Daniel Hill MD @ 05/09/2023 4:16:00 PM Signed by:?Juan Daniel Hill MD @05/09/2023 4:16:00 PM (Electronic Signature)
[2023-05-09 14:21] LABS: Hematocrit 37.4 % (37.0-53.0); Hemoglobin* 11.6 gm/dL (13.5-17.5); Mean Corpuscular HGB Conc 31 gm/dL (32-36); Mean Corpuscular Hemoglobin 28 pg (26-34); Mean Corpuscular Volume 92 fL (80-100); Platelet Count* 133 K/uL (140-440); RDW Coefficient of Variation % 13.8 % (11.5-15.5); Red Blood Count 4.08 m/uL (4.30-5.90); White Blood Count* 7.72 K/uL (4.50-11.00)
[2023-05-09 14:22] LABS: Basophils Absolute Auto 0.02 K/uL (0.00-0.30); Basophils Percent Auto 0.3 % (0.0-3.0); Eosinophils Absolute Auto 0.21 K/uL (0.00-0.50); Eosinophils Percent Auto 2.7 % (0.0-7.0); Immature Granulocytes Abs Auto 0.02 K/uL (0.00-0.30); Immature Granulocytes Pct Auto 0.3 %; Lymphocytes Percent Auto 13.5 % (20-44); Monocytes Percent Auto 9.2 % (0.0-11.0)
[2023-05-09 14:31] LABS: Slide Review Reflex No
[2023-05-09 14:36] LABS: Chloride* 112 mmol/L (96-114); Potassium* 4.8 mmol/L (3.6-5.1); Sodium* 141 mmol/L (135-149)
[2023-05-09 14:39] LABS: Anion Gap 8 mEq/L (7-15); Carbon Dioxide* 21 mmol/L (20-32); Creatinine* 1.6 mg/dL (0.5-1.5); Est. Creatinine Clearance* 43.78; Estimated Glomerular Filt Rate 45 ml/min
[2023-05-09 14:40] LABS: Blood Urea Nitrogen* 37 mg/dL (7-30); Calcium* 9.3 mg/dL (8.4-10.6); Glucose* 96 mg/dL (60-115)
== END 2023-05-09 17:32 | disposition home or self-care (01) ==
PROVIDERS: Emergency Provider Family Medicine; PCP Family Medicine
DX: R31.9 Hematuria, unspecified (principal); N32.9 Bladder disorder, unspecified
CPT/HCPCS: 36415; 74178; 80048; 81001; 85025; 99283; Q9967

== ENCOUNTER 2023-05-12 22:04 | Emergency (ER) | payer MEDICARE, OTHER, SELFPAY ==
[2023-05-12 22:13] VITALS: BP 126/76; PULSE 89; RESP 18; TEMP 36.1; O2SAT 99; BMI 26.4
--- NOTE | 2023-05-12 22:21 | ED.GENADULT ---
HPI - General Adult General Time Seen by Provider: 22:21 Date Seen: 05/12/23 Chief complaint: Urogenital Problems, Male Stated complaint: pain when he pees Time Seen by Provider: 05/12/23 22:20 Source: patient and RN notes reviewed Mode of arrival: ambulatory Limitations: no limitations History of Present Illness HPI narrative: This 77-year-old male is coming in tonight after talking to the nurse triage line. He has had hematuria for over a week now, I saw him earlier this week. He did see Urology yesterday, they are going to get him scheduled for further workup. They did tell him he does have a bladder tumor. He continues to have hematuria but today started having clots. He at 1 point felt like he was having difficulty urinating and started to push fluids. After that, he has had no issues. He is not having any obstructive urination. Related Data Home Medications Medication Instructions Recorded Confirmed acetaminophen 500 mg capsule 500 mg PO Q6H PRN 08/24/21 05/12/23 bupropion HCl 150 mg 24 hr tablet, 150 mg PO DAILY 08/24/21 05/12/23 extended release gabapentin 300 mg capsule 300 mg PO DAILY 08/24/21 05/12/23 nitroglycerin 0.4 mg sublingual 0.4 mg sublingual Q5-15M PRN 08/24/21 04/20/23 tablet rosuvastatin 20 mg tablet 20 mg PO .QHS 08/24/21 05/12/23 topiramate 100 mg tablet 100 mg PO .QHS 08/24/21 05/12/23 nifedipine 30 mg tablet,extended 30 mg PO DAILY 06/22/22 05/12/23 release Previous Rx's Medication Instructions Recorded bosutinib 100 mg tablet 100 mg PO QDAY #30 tabs 09/27/22 bosutinib 500 mg tablet 500 mg PO DAILY #30 tabs 09/27/22 Allergies Allergy/AdvReac Type Severity Reaction Status Date / Time Chlorhexidine Allergy Uncoded 09/13/21 10:41 Review of Systems Narrative: As per HPI. 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) Thrombocytopenia ?D69.6 - Thrombocytopenia, unspecified (ICD-10) Rib injury ?S29.9XXA - Unspecified injury of thorax, initial encounter (ICD-10) Lung nodule ?R91.1 - Solitary pulmonary nodule (ICD-10) Hypovolemic shock ?R57.1 - Hypovolemic shock (ICD-10) Hypertension ?I10 - Essential (primary) hypertension (ICD-10) Gastrointestinal hemorrhage due to nonsteroidal antiinflammatory drug ?K92.2 - Gastrointestinal hemorrhage, unspecified (ICD-10) ?T39.395A - Adverse effect of other nonsteroidal anti-inflammatory drugs [NSAID], initial encounter (ICD-10) Fatigue ?R53.83 - Other fatigue (ICD-10) Anemia ?D64.9 - Anemia, unspecified (ICD-10) Abrasion of left cornea ?S05.02XA - Injury of conjunctiva and corneal abrasion without foreign body, left eye, initial encounter (ICD-10) Pleural effusion ?J90 - Pleural effusion, not elsewhere classified (ICD-10) History of malignant neoplasm of testis ?Z85.47 - Personal history of malignant neoplasm of testis (ICD-10) 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 - Chronic myeloid leukemia, BCR/ABL-positive, in remission (ICD-10) Anemia due to acute blood loss ?D62 - Acute posthemorrhagic anemia (ICD-10) Vestibular migraine ?G43.809 - Other migraine, not intractable, without status migrainosus (ICD-10) Aortic stenosis ?I35.0 - Nonrheumatic aortic (valve) stenosis (ICD-10) QT prolongation ?R94.31 - Abnormal electrocardiogram [ECG] [EKG] (ICD-10) Surgical History S/P TAVR (transcatheter aortic valve replacement) ?Z95.2 - Presence of prosthetic heart valve (ICD-10) Social History Smoking Status: Never smoker Do you use any of these nicotine containing products: None Second hand tobacco smoke exposure: No How often do you have a drink containing alcohol: never How often do you have six or more drinks on one occasion: Never AUDIT-C Alcohol total score: 0 Non-prescribed substance use: denies use service: No Exam Const: Vital Signs, click to edit/add: Vital Signs - 24 hr 05/12/23 22:13 Temperature 97 F L Pulse Rate [Pulse Oximeter] 89 Respiratory Rate 18 Blood Pressure [Ri ght Upper Arm] 126/76 Pulse Oximetry 99 Oxygen Delivery Me thod Room Air This 77-year-old male is alert, interactive, no apparent distress. He is ambulatory in the ED of his own accord. CV regular rate and rhythm, no murmur, normal S1-S2, no S3-S4. Lungs clear. Abdomen is soft, nontender, nondistended, no organomegaly. Patient did urinate here, has bloody urine. I did not send this for urinalysis as he has no concern for infectious etiology. Documenting provider has reviewed patient's vital signs: yes Course Course ED Course: Reviewed with patient that we really only intervene if he starts having obstructive urination. There is nothing else we can do. He can continue to push fluids. We did discuss rechecking hemoglobin to make sure he is not becoming significantly anemic. He does not have any overt symptoms of anemia at this time but agreed to have his hemoglobin checked. Reevaluation(s) Time of Reevaluation #1: 23:23 Reevaluation #1: Reviewed with patient that his hemoglobin is 11.2. Was 11.6 earlier this week. He has ranged from 10.8-12 looking in his recent records. This is stable. Plan to discharge to home for further outpatient follow-up with Urology. Vital Signs Vital signs: Initial Vital Signs Temperature 97 F L 05/12/23 22:13 Temperature Source Temporal Artery Scan 05/12/23 22:13 Pulse Rate 89 05/12/23 22:13 Pulse Rhythm Regular 05/12/23 22:13 Pulse Strength 3+ Normal 05/12/23 22:13 Respiratory Rate 18 05/12/23 22:13 Blood Pressure 126/76 05/12/23 22:13 Blood Pressure Mean 92 05/12/23 22:13 Pulse Oximetry 99 05/12/23 22:13 Oxygen Delivery Method Room Air 05/12/23 22:13 Vital Signs Temperature 97 F L 05/12/23 22:13 Pulse Rate 89 05/12/23 22:13 Respiratory Rate 18 05/12/23 22:13 Blood Pressure 126/76 05/12/23 22:13 Pulse Oximetry 99 05/12/23 22:13 Oxygen Delivery Method Room Air 05/12/23 22:13 Temperature 97 F L 05/12/23 22:13 Pulse Rate 89 05/12/23 22:13 Respiratory Rate 18 05/12/23 22:13 Blood Pressure 126/76 05/12/23 22:13 Pulse Oximetry 99 05/12/23 22:13 Oxygen Delivery Method Room Air 05/12/23 22:13 Medical Decision Making Lab Data Lab results reviewed: Yes I reviewed the patient's lab results Labs: Lab Results 05/12/23 Range/Units 22:54 Hgb 11.2 L (13.5-17.5) gm/dL Discharge Plan Discharge Clinical Impression: Mass of bladder Patient Disposition: Home, Self-Care Condition: Stable Instructions: Hematuria (ED) Additional Instructions: Continue to push fluids to help dilute the urine. If you need pain management, would only recommend Tylenol at this point. Would avoid aspirin, ibuprofen or other nonsteroidal anti-inflammatories as they theoretically could increase the bleeding. If you are unable to urinate due to clot formation, then a urinary catheter with bladder irrigation needs to be placed. We would need to see you back in follow-up at that time should this happen. Otherwise, await call back from urologist for further management of your bladder tumor. Activity Level: Activity as Tolerated Prescriptions: No Action bosutinib 100 mg tablet 100 mg PO QDAY Qty: 30 3RF Rx Instructions: administer one x 100 mg tablet with one x 500 mg tablet for total dose = 600 mg bosutinib 500 mg tablet 500 mg PO DAILY Qty: 30 3RF Rx Instructions: administer one x 100 mg tablet with one x 500 mg tablet for total dose = 600 mg; must administer with a meal/food nifedipine 30 mg tablet extended release 30 mg PO DAILY gabapentin 300 mg capsule 300 mg PO DAILY Patient Comments: take 1 capsule by mouth once daily at bedtime. may increase to 2 capsules at bedtime after 1 week if needed. topiramate 100 mg tablet 100 mg PO .QHS Patient Comments: TAKE ONE TABLET BY MOUTH ONE TIME DAILY AT BEDTIME rosuvastatin 20 mg tablet 20 mg PO .QHS Patient Comments: Take 1 Tablet (20 mg) by mouth at bedtime. Due for cardiology follow up. Please call [phone] to schedule. bupropion HCl 150 mg tablet extended release 24 hr 150 mg PO DAILY Patient Comments: TAKE ONE TABLET BY MOUTH ONE TIME DAILY acetaminophen 500 mg capsule 500 mg PO Q6H PRN Rx Instructions: Take 1-2 every 6 hours as needed. nitroglycerin 0.4 mg tablet, sublingual 0.4 mg sublingual Q5-15M PRN Rx Instructions: do not exceed 3 doses per episode Follow Up/Referrals: Delgado Torres MD [Primary Care Provider] - Stand Alone Forms: [employer] Info Instructions
[2023-05-12 23:11] LABS: Hemoglobin* 11.2 gm/dL (13.5-17.5)
== END 2023-05-12 23:31 | disposition home or self-care (01) ==
PROVIDERS: Emergency Provider Family Medicine; PCP Family Medicine
DX: N32.9 Bladder disorder, unspecified (principal)
CPT/HCPCS: 36415; 85018; 99282; 99283

== ENCOUNTER 2023-09-26 10:00 | Outpatient (RCR) | payer MEDICARE, OTHER, SELFPAY ==
--- NOTE | 2023-04-01 09:11 | ONC.NURNOTE ---
[facility] PAP enrollment through 02/14/24 for Amrit [id number] # [phone]
[2023-04-06 12:39] LABS: Lactate Dehydrogenase* 317 U/L (120-246)
[2023-04-06 12:40] LABS: Magnesium* 2.5 mg/dL (1.5-2.6)
[2023-04-06 14:37] LABS: Basophils Absolute Auto 0.02 K/uL (0.00-0.30); Basophils Percent Auto 0.3 % (0.0-3.0); Eosinophils Absolute Auto 0.13 K/uL (0.00-0.50); Eosinophils Percent Auto 2.1 % (0.0-7.0); Hematocrit 35.9 % (37.0-53.0); Hemoglobin* 11.2 gm/dL (13.5-17.5); Immature Granulocytes Abs Auto 0.03 K/uL (0.00-0.30); Immature Granulocytes Pct Auto 0.5 %; Lymphocytes Percent Auto 12.7 % (20-44); Mean Corpuscular HGB Conc 31 gm/dL (32-36); Mean Corpuscular Hemoglobin 28 pg (26-34); Mean Corpuscular Volume 91 fL (80-100); Monocytes Percent Auto 8.2 % (0.0-11.0); Neutrophils Percent Auto 76.2 % (42.0-72.0); Platelet Count* 201 K/uL (140-440); RDW Coefficient of Variation % 14.2 % (11.5-15.5); Red Blood Count 3.95 m/uL (4.30-5.90); White Blood Count* 6.13 K/uL (4.50-11.00)
[2023-04-06 14:49] LABS: Albumin* 4.5 g/dL (3.3-5.0); Chloride* 108 mmol/L (96-114); Potassium* 4.2 mmol/L (3.6-5.1); Sodium* 141 mmol/L (135-149)
[2023-04-06 14:52] LABS: Alanine Aminotransferase* 26 U/L (4-50); Alkaline Phosphatase* 91 U/L (40-150); Anion Gap 12 mEq/L (7-15); Aspartate Amino Transferase* 35 U/L (12-35); Bilirubin Total* 0.3 mg/dL (0.1-1.5); Blood Urea Nitrogen* 30 mg/dL (7-30); Calcium* 9.2 mg/dL (8.4-10.6); Carbon Dioxide* 21 mmol/L (20-32); Creatinine* 1.8 mg/dL (0.5-1.5); Estimated Glomerular Filt Rate 39 ml/min; Glucose* 92 mg/dL (60-115); Total Protein* 8.3 g/dL (6.0-8.3)
[2023-04-06 14:55] LABS: Slide Review Reflex No
[2023-04-14 22:54] LABS: QuantBCR-ABL Major p210 Result Detected; QuantBCR-ABL Major p210 Source Whole Blood; QuantBCR-ABLMajor p210 IS % 0.1343 %
[2023-05-04 11:36] LABS: Basophils Absolute Auto 0.02 K/uL (0.00-0.30); Basophils Percent Auto 0.2 % (0.0-3.0); Eosinophils Percent Auto 2.4 % (0.0-7.0); Hematocrit 36.9 % (37.0-53.0); Hemoglobin* 11.3 gm/dL (13.5-17.5); Immature Granulocytes Abs Auto 0.01 K/uL (0.00-0.30); Immature Granulocytes Pct Auto 0.1 %; Lymphocytes Percent Auto 14.2 % (20-44); Mean Corpuscular HGB Conc 31 gm/dL (32-36); Mean Corpuscular Hemoglobin 28 pg (26-34); Mean Corpuscular Volume 93 fL (80-100); Monocytes Percent Auto 9.5 % (0.0-11.0); Neutrophils Percent Auto 73.6 % (42.0-72.0); Platelet Count* 136 K/uL (140-440); Red Blood Count 3.99 m/uL (4.30-5.90); White Blood Count* 8.23 K/uL (4.50-11.00)
[2023-05-04 11:41] LABS: Slide Review Reflex No
[2023-05-04 11:48] LABS: Albumin* 4.5 g/dL (3.3-5.0); Chloride* 111 mmol/L (96-114)
[2023-05-04 11:49] LABS: Potassium* 4.8 mmol/L (3.6-5.1); Sodium* 141 mmol/L (135-149)
[2023-05-04 11:51] LABS: Alkaline Phosphatase* 67 U/L (40-150); Anion Gap 8 mEq/L (7-15); Aspartate Amino Transferase* 25 U/L (12-35); Bilirubin Total* 0.3 mg/dL (0.1-1.5); Blood Urea Nitrogen* 31 mg/dL (7-30); Carbon Dioxide* 22 mmol/L (20-32); Creatinine* 1.5 mg/dL (0.5-1.5); Estimated Glomerular Filt Rate 48 ml/min
[2023-05-04 11:52] LABS: Alanine Aminotransferase* 15 U/L (4-50); Calcium* 9.2 mg/dL (8.4-10.6); Glucose* 102 mg/dL (60-115)
--- NOTE | 2023-05-05 14:06 | ONC.NURNOTE ---
Noted stable lab results- called to patient provider review next week patient reported that he experienced hematuria this am with dark red urine pale red on subsequent voids unable to get an appt with his provider until next week drinking fluids well and plans to go to ER for evaluation
[2023-06-01 09:02] LABS: Basophils Absolute Auto 0.03 K/uL (0.00-0.30); Basophils Percent Auto 0.5 % (0.0-3.0); Eosinophils Absolute Auto 0.24 K/uL (0.00-0.50); Eosinophils Percent Auto 3.7 % (0.0-7.0); Hematocrit 34.5 % (37.0-53.0); Hemoglobin* 10.6 gm/dL (13.5-17.5); Immature Granulocytes Abs Auto 0.01 K/uL (0.00-0.30); Immature Granulocytes Pct Auto 0.2 %; Lymphocytes Percent Auto 15.4 % (20-44); Mean Corpuscular HGB Conc 31 gm/dL (32-36); Mean Corpuscular Hemoglobin 29 pg (26-34); Mean Corpuscular Volume 93 fL (80-100); Monocytes Percent Auto 9.2 % (0.0-11.0); Neutrophils Absolute Auto 4.65 K/uL (1.7-7.0); Platelet Count* 144 K/uL (140-440); Red Blood Count 3.72 m/uL (4.30-5.90); White Blood Count* 6.54 K/uL (4.50-11.00)
[2023-06-01 09:04] LABS: Slide Review Reflex No
[2023-06-01 09:14] LABS: Albumin* 4.4 g/dL (3.3-5.0); Chloride* 118 mmol/L (96-114); Potassium* 4.4 mmol/L (3.6-5.1); Sodium* 145 mmol/L (135-149)
[2023-06-01 09:17] LABS: Alanine Aminotransferase* 13 U/L (4-50); Alkaline Phosphatase* 71 U/L (40-150); Anion Gap 5 mEq/L (7-15); Aspartate Amino Transferase* 23 U/L (12-35); Bilirubin Total* 0.2 mg/dL (0.1-1.5); Blood Urea Nitrogen* 30 mg/dL (7-30); Carbon Dioxide* 22 mmol/L (20-32); Creatinine* 1.7 mg/dL (0.5-1.5); Estimated Glomerular Filt Rate 42 ml/min; Glucose* 74 mg/dL (60-115); Total Protein* 7.9 g/dL (6.0-8.3)
[2023-06-01 09:18] LABS: Calcium* 8.9 mg/dL (8.4-10.6)
--- NOTE | 2023-06-14 08:57 | W.ED.EKGINT ---
EKG Interpretation EKG Data Attestation: I personally reviewed and interpreted this ECG as follows: Date of EKG Tracin06/01/23 EKG interpretation date: 06/14/23 Prior EKG tracings: available for review Interpretation: Review of the EKG dated 06/01/2023, this is compared to previous EKGs from his April 2022, November 2022 EKG remains in sinus rhythm, with a ventricular rate of 63, QRS remained stable at 164 milliseconds, QT interval is lengthen but stable at 456, QTC baz as is 466 and is lengthened but stable. Right bundle branch block configuration, and first-degree AV block remain stable appear. Assessment: Abnormal EKG, with above changes, that remain stable from previous EKG.
[2023-06-29 10:16] LABS: Basophils Absolute Auto 0.03 K/uL (0.00-0.30); Basophils Percent Auto 0.4 % (0.0-3.0); Eosinophils Absolute Auto 0.21 K/uL (0.00-0.50); Eosinophils Percent Auto 3.1 % (0.0-7.0); Hematocrit 36.5 % (37.0-53.0); Hemoglobin* 11.5 gm/dL (13.5-17.5); Immature Granulocytes Abs Auto 0.02 K/uL (0.00-0.30); Immature Granulocytes Pct Auto 0.3 %; Lymphocytes Percent Auto 17.9 % (20-44); Mean Corpuscular HGB Conc 32 gm/dL (32-36); Mean Corpuscular Hemoglobin 29 pg (26-34); Mean Corpuscular Volume 90 fL (80-100); Monocytes Percent Auto 9.4 % (0.0-11.0); Neutrophils Absolute Auto 4.63 K/uL (1.7-7.0); Neutrophils Percent Auto 68.9 % (42.0-72.0); Platelet Count* 166 K/uL (140-440); RDW Coefficient of Variation % 13.6 % (11.5-15.5); Red Blood Count 4.04 m/uL (4.30-5.90); White Blood Count* 6.72 K/uL (4.50-11.00)
[2023-06-29 10:24] LABS: Slide Review Reflex No
[2023-06-29 10:33] LABS: Albumin* 4.5 g/dL (3.3-5.0); Chloride* 112 mmol/L (96-114); Potassium* 4.7 mmol/L (3.6-5.1); Sodium* 143 mmol/L (135-149)
[2023-06-29 10:35] LABS: Creatinine* 1.8 mg/dL (0.5-1.5); Estimated Glomerular Filt Rate 39 ml/min
[2023-06-29 10:36] LABS: Alanine Aminotransferase* 16 U/L (4-50); Alkaline Phosphatase* 83 U/L (40-150); Anion Gap 8 mEq/L (7-15); Aspartate Amino Transferase* 27 U/L (12-35); Bilirubin Total* 0.3 mg/dL (0.1-1.5); Blood Urea Nitrogen* 24 mg/dL (7-30); Carbon Dioxide* 23 mmol/L (20-32); Glucose* 96 mg/dL (60-115); Lactate Dehydrogenase* 317 U/L (120-246); Total Protein* 8.2 g/dL (6.0-8.3)
[2023-06-29 10:37] LABS: Calcium* 9.1 mg/dL (8.4-10.6)
--- NOTE | 2023-06-29 11:11 | ONC.NURNOTE ---
Lab results reviewed by health science writer and called to patient as stable with in patients baseline BCR/ABL pending and all will be reviewed at MD appt in 2 weeks
[2023-07-04 18:45] LABS: QuantBCR-ABL Major p210 Result Detected; QuantBCR-ABL Major p210 Source Not Provided
[2023-07-27 10:39] LABS: Basophils Absolute Auto 0.03 K/uL (0.00-0.30); Basophils Percent Auto 0.5 % (0.0-3.0); Eosinophils Percent Auto 3.2 % (0.0-7.0); Hematocrit 36.8 % (37.0-53.0); Hemoglobin* 11.3 gm/dL (13.5-17.5); Immature Granulocytes Abs Auto 0.02 K/uL (0.00-0.30); Immature Granulocytes Pct Auto 0.3 %; Lymphocytes Percent Auto 15.5 % (20-44); Mean Corpuscular HGB Conc 31 gm/dL (32-36); Mean Corpuscular Hemoglobin 28 pg (26-34); Mean Corpuscular Volume 91 fL (80-100); Monocytes Percent Auto 7.4 % (0.0-11.0); Neutrophils Percent Auto 73.1 % (42.0-72.0); Platelet Count* 128 K/uL (140-440); RDW Coefficient of Variation % 13.1 % (11.5-15.5); Red Blood Count 4.05 m/uL (4.30-5.90); White Blood Count* 6.32 K/uL (4.50-11.00)
[2023-07-27 10:53] LABS: Slide Review Reflex No
[2023-07-27 10:57] LABS: Albumin* 4.6 g/dL (3.3-5.0)
[2023-07-27 10:58] LABS: Chloride* 115 mmol/L (96-114); Potassium* 4.6 mmol/L (3.6-5.1); Sodium* 141 mmol/L (135-149)
[2023-07-27 11:00] LABS: Anion Gap 6 mEq/L (7-15); Aspartate Amino Transferase* 32 U/L (12-35); Bilirubin Total* 0.5 mg/dL (0.1-1.5); Carbon Dioxide* 20 mmol/L (20-32); Creatinine* 1.7 mg/dL (0.5-1.5); Estimated Glomerular Filt Rate 41 ml/min; Total Protein* 7.5 g/dL (6.0-8.3)
[2023-07-27 11:01] LABS: Alanine Aminotransferase* 15 U/L (4-50); Alkaline Phosphatase* 72 U/L (40-150); Blood Urea Nitrogen* 30 mg/dL (7-30); Calcium* 9.2 mg/dL (8.4-10.6); Glucose* 107 mg/dL (60-115)
[2023-08-24 11:06] LABS: Basophils Absolute Auto 0.04 K/uL (0.00-0.30); Basophils Percent Auto 0.6 % (0.0-3.0); Eosinophils Absolute Auto 0.17 K/uL (0.00-0.50); Eosinophils Percent Auto 2.7 % (0.0-7.0); Hematocrit 37.4 % (37.0-53.0); Hemoglobin* 11.5 gm/dL (13.5-17.5); Immature Granulocytes Abs Auto 0.04 K/uL (0.00-0.30); Immature Granulocytes Pct Auto 0.6 %; Lymphocytes Percent Auto 16.3 % (20-44); Mean Corpuscular HGB Conc 31 gm/dL (32-36); Mean Corpuscular Hemoglobin 27 pg (26-34); Mean Corpuscular Volume 89 fL (80-100); Monocytes Percent Auto 7.9 % (0.0-11.0); Neutrophils Absolute Auto 4.46 K/uL (1.7-7.0); Neutrophils Percent Auto 71.9 % (42.0-72.0); Platelet Count* 163 K/uL (140-440); RDW Coefficient of Variation % 13.3 % (11.5-15.5); White Blood Count* 6.21 K/uL (4.50-11.00)
[2023-08-24 11:08] LABS: Slide Review Reflex No
[2023-08-24 11:54] LABS: Albumin* 4.8 g/dL (3.3-5.0); Chloride* 112 mmol/L (96-114)
[2023-08-24 11:55] LABS: Potassium* 4.8 mmol/L (3.6-5.1); Sodium* 141 mmol/L (135-149)
[2023-08-24 11:57] LABS: Anion Gap 10 mEq/L (7-15); Aspartate Amino Transferase* 25 U/L (12-35); Bilirubin Total* 0.5 mg/dL (0.1-1.5); Carbon Dioxide* 19 mmol/L (20-32); Creatinine* 1.9 mg/dL (0.5-1.5); Estimated Glomerular Filt Rate 36 ml/min
[2023-08-24 11:58] LABS: Alanine Aminotransferase* 16 U/L (4-50); Alkaline Phosphatase* 80 U/L (40-150); Blood Urea Nitrogen* 34 mg/dL (7-30); Calcium* 9.2 mg/dL (8.4-10.6); Glucose* 107 mg/dL (60-115)
--- NOTE | 2023-08-25 10:16 | ONC.NURNOTE ---
Labs reviewed by newspaper writer and called to Marco Antonio Almodovar noted- discussed staying well hydrated- patient states understanding has appts for next labs and follow up appt reports no concerns with his bosutinib
[2023-09-26 10:06] LABS: Basophils Absolute Auto 0.03 K/uL (0.00-0.30); Basophils Percent Auto 0.3 % (0.0-3.0); Eosinophils Absolute Auto 0.16 K/uL (0.00-0.50); Eosinophils Percent Auto 1.7 % (0.0-7.0); Hematocrit 36.4 % (37.0-53.0); Hemoglobin* 10.9 gm/dL (13.5-17.5); Immature Granulocytes Abs Auto 0.04 K/uL (0.00-0.30); Immature Granulocytes Pct Auto 0.4 %; Lymphocytes Percent Auto 9.9 % (20-44); Mean Corpuscular HGB Conc 30 gm/dL (32-36); Mean Corpuscular Hemoglobin 27 pg (26-34); Mean Corpuscular Volume 90 fL (80-100); Monocytes Percent Auto 6.7 % (0.0-11.0); Platelet Count* 160 K/uL (140-440); RDW Coefficient of Variation % 13.6 % (11.5-15.5); Red Blood Count 4.05 m/uL (4.30-5.90); White Blood Count* 9.37 K/uL (4.50-11.00)
[2023-09-26 10:08] LABS: Slide Review Reflex No
[2023-09-26 10:31] LABS: Albumin* 4.3 g/dL (3.3-5.0); Chloride* 109 mmol/L (96-114)
[2023-09-26 10:32] LABS: Potassium* 4.6 mmol/L (3.6-5.1); Sodium* 140 mmol/L (135-149)
[2023-09-26 10:34] LABS: Anion Gap 9 mEq/L (7-15); Aspartate Amino Transferase* 29 U/L (12-35); Bilirubin Total* 0.3 mg/dL (0.1-1.5); Carbon Dioxide* 22 mmol/L (20-32); Creatinine* 1.7 mg/dL (0.5-1.5); Estimated Glomerular Filt Rate 41 ml/min
[2023-09-26 10:35] LABS: Alanine Aminotransferase* 21 U/L (4-50); Alkaline Phosphatase* 85 U/L (40-150); Blood Urea Nitrogen* 22 mg/dL (7-30); Calcium* 8.9 mg/dL (8.4-10.6); Glucose* 105 mg/dL (60-115); Lactate Dehydrogenase* 357 U/L (120-246); Total Protein* 7.4 g/dL (6.0-8.3)
--- NOTE | 2023-09-26 11:54 | ONC.NURNOTE ---
Labs reviewed with patient- noted increase ANC and ongoing elevation in LDH, Hg lower at 10.9 discussed with patient reviewed by Dr Kidd follow up in one month Marco Antonio also informed procedure writer that during his driving trip to [place] he experienced 4 days of cramping, pain, weakness and diarrhea patient did not see a provider his symptoms have since improved- with normal stools daily for the past 4 days eating and drinking fluids per his normal routine now weight today stable per previous weights Creat good for patient instructed to call PCP if symptoms reappear- he may need stool to be checked for pathogens patient thought he had food poisoning- as he had eaten occitan food several hours before symptoms started
[2023-09-30 23:01] LABS: QuantBCR-ABL Major p210 Result Detected; QuantBCR-ABL Major p210 Source Whole Blood
== END 2023-10-03 23:59 | disposition home or self-care (01) ==
LOC: CCIC 10:00
PROVIDERS: PCP Family Medicine; Referring Provider Family Medicine; Visit Provider Internal Medicine Hematology & Oncology
DX: C92.11 Chronic myeloid leukemia, BCR/ABL-positive, in remission (principal)
CPT/HCPCS: 36415; 80053; 81206; 83615; 83735; 85025; 93005; 93010; 99215; G0463

== ENCOUNTER 2024-04-09 14:00 | Outpatient (RCR) | payer MEDICARE, OTHER, SELFPAY ==
[2023-10-26 12:24] LABS: Basophils Absolute Auto 0.03 K/uL (0.00-0.30); Basophils Percent Auto 0.4 % (0.0-3.0); Eosinophils Absolute Auto 0.18 K/uL (0.00-0.50); Eosinophils Percent Auto 2.6 % (0.0-7.0); Hematocrit 36.2 % (37.0-53.0); Hemoglobin* 11.1 gm/dL (13.5-17.5); Immature Granulocytes Abs Auto 0.01 K/uL (0.00-0.30); Immature Granulocytes Pct Auto 0.1 %; Mean Corpuscular HGB Conc 31 gm/dL (32-36); Mean Corpuscular Hemoglobin 28 pg (26-34); Mean Corpuscular Volume 91 fL (80-100); Monocytes Percent Auto 8.6 % (0.0-11.0); Neutrophils Percent Auto 77.3 % (42.0-72.0); Platelet Count* 152 K/uL (140-440); RDW Coefficient of Variation % 14.8 % (11.5-15.5); Red Blood Count 3.98 m/uL (4.30-5.90)
[2023-10-26 12:25] LABS: Slide Review Reflex No
[2023-10-26 12:36] LABS: Albumin* 4.6 g/dL (3.3-5.0); Chloride* 110 mmol/L (96-114)
[2023-10-26 12:37] LABS: Potassium* 4.5 mmol/L (3.6-5.1); Sodium* 140 mmol/L (135-149)
[2023-10-26 12:39] LABS: Alanine Aminotransferase* 22 U/L (4-50); Alkaline Phosphatase* 83 U/L (40-150); Anion Gap 10 mEq/L (7-15); Aspartate Amino Transferase* 30 U/L (12-35); Bilirubin Total* 0.4 mg/dL (0.1-1.5); Blood Urea Nitrogen* 24 mg/dL (7-30); Carbon Dioxide* 20 mmol/L (20-32); Creatinine* 1.6 mg/dL (0.5-1.5); Estimated Glomerular Filt Rate 44 ml/min; Glucose* 95 mg/dL (60-115); Total Protein* 7.8 g/dL (6.0-8.3)
[2023-10-26 12:40] LABS: Calcium* 8.9 mg/dL (8.4-10.6); Lactate Dehydrogenase* 340 U/L (120-246)
[2023-11-25 11:32] LABS: Basophils Absolute Auto 0.03 K/uL (0.00-0.30); Basophils Percent Auto 0.4 % (0.0-3.0); Eosinophils Absolute Auto 0.17 K/uL (0.00-0.50); Eosinophils Percent Auto 2.5 % (0.0-7.0); Hematocrit 38.3 % (37.0-53.0); Hemoglobin* 11.7 gm/dL (13.5-17.5); Immature Granulocytes Abs Auto 0.01 K/uL (0.00-0.30); Immature Granulocytes Pct Auto 0.1 %; Lymphocytes Percent Auto 14.7 % (20-44); Mean Corpuscular HGB Conc 31 gm/dL (32-36); Mean Corpuscular Hemoglobin 28 pg (26-34); Mean Corpuscular Volume 91 fL (80-100); Monocytes Percent Auto 7.4 % (0.0-11.0); Neutrophils Percent Auto 74.9 % (42.0-72.0); Platelet Count* 123 K/uL (140-440); RDW Coefficient of Variation % 14.6 % (11.5-15.5); Red Blood Count 4.23 m/uL (4.30-5.90); White Blood Count* 6.86 K/uL (4.50-11.00)
[2023-11-25 11:35] LABS: Slide Review Reflex No
[2023-11-25 11:44] LABS: Albumin* 4.7 g/dL (3.3-5.0); Chloride* 111 mmol/L (96-114)
[2023-11-25 11:45] LABS: Potassium* 5.1 mmol/L (3.6-5.1); Sodium* 142 mmol/L (135-149)
[2023-11-25 11:47] LABS: Alkaline Phosphatase* 81 U/L (40-150); Anion Gap 10 mEq/L (7-15); Aspartate Amino Transferase* 25 U/L (12-35); Bilirubin Total* 0.2 mg/dL (0.1-1.5); Blood Urea Nitrogen* 28 mg/dL (7-30); Carbon Dioxide* 21 mmol/L (20-32); Creatinine* 1.9 mg/dL (0.5-1.5); Estimated Glomerular Filt Rate 36 ml/min; Total Protein* 7.8 g/dL (6.0-8.3)
[2023-11-25 11:48] LABS: Alanine Aminotransferase* 19 U/L (4-50); Calcium* 9.6 mg/dL (8.4-10.6); Glucose* 103 mg/dL (60-115); Lactate Dehydrogenase* 350 U/L (120-246); Magnesium* 2.4 mg/dL (1.5-2.6)
--- NOTE | 2023-11-25 13:31 | ONC.NURNOTE ---
Addendum entered by Fadumo Romano RN 12/01/23 11:09: BCR/Abl results received and message left on VM for Marco Antonio-as stable/improved from previous test Original Note: lab results called to Marco Antonio as stable BCR/ABL pending
[2023-11-30 14:22] LABS: QuantBCR-ABL Major p210 Result Detected; QuantBCR-ABL Major p210 Source Whole Blood; QuantBCR-ABLMajor p210 IS % 0.0616 %
--- NOTE | 2023-12-21 14:16 | ONC.NURNOTE ---
New medicare drug cap at $2000 [employer] P[employer] requires patients to enroll in the Medicare PPP and if still cant afford monthly cost then they can apply for [place] PAP if financially eligible New Rx for bosutinib sent via eRX to [id number] [place] completed via covermymeds for bosutinib 100mg cap- approved and bosutinib 500 mg caps - pending
[2023-12-22 10:27] LABS: Basophils Absolute Auto 0.04 K/uL (0.00-0.30); Basophils Percent Auto 0.5 % (0.0-3.0); Eosinophils Absolute Auto 0.24 K/uL (0.00-0.50); Eosinophils Percent Auto 2.8 % (0.0-7.0); Hematocrit 36.6 % (37.0-53.0); Hemoglobin* 11.4 gm/dL (13.5-17.5); Immature Granulocytes Abs Auto 0.01 K/uL (0.00-0.30); Immature Granulocytes Pct Auto 0.1 %; Lymphocytes Percent Auto 10.5 % (20-44); Mean Corpuscular HGB Conc 31 gm/dL (32-36); Mean Corpuscular Hemoglobin 28 pg (26-34); Mean Corpuscular Volume 90 fL (80-100); Monocytes Percent Auto 8.8 % (0.0-11.0); Neutrophils Percent Auto 77.3 % (42.0-72.0); Platelet Count* 136 K/uL (140-440); RDW Coefficient of Variation % 14.4 % (11.5-15.5); Red Blood Count 4.07 m/uL (4.30-5.90); White Blood Count* 8.65 K/uL (4.50-11.00)
[2023-12-22 10:39] LABS: Slide Review Reflex No
[2023-12-22 10:43] LABS: Albumin* 4.5 g/dL (3.3-5.0); Chloride* 110 mmol/L (96-114); Sodium* 141 mmol/L (135-149)
[2023-12-22 10:45] LABS: Creatinine* 1.6 mg/dL (0.5-1.5); Est. Creatinine Clearance* 43.11; Estimated Glomerular Filt Rate 44 ml/min
[2023-12-22 10:46] LABS: Alanine Aminotransferase* 15 U/L (4-50); Alkaline Phosphatase* 76 U/L (40-150); Anion Gap 10 mEq/L (7-15); Aspartate Amino Transferase* 24 U/L (12-35); Bilirubin Total* 0.1 mg/dL (0.1-1.5); Calcium* 8.6 mg/dL (8.4-10.6); Carbon Dioxide* 21 mmol/L (20-32); Glucose* 92 mg/dL (60-115); Total Protein* 7.5 g/dL (6.0-8.3)
[2023-12-22 11:02] LABS: Blood Urea Nitrogen* 26 mg/dL (7-30)
--- NOTE | 2024-01-03 10:20 | W.PM.EKGIN_ITS ---
EKG Interpretation EKG Data Date of EKG Tracin12/22/23 EKG interpretation date: 01/03/24 Prior EKG tracings: available for review Interpretation: EKG interpretation is done with indication of chemotherapeutic monitoring. Old EKG compared from 06/01/2023. Rhythm is sinus with the ventricular rate of 75, 1st degree AV block is noted, with right bundle branch block configuration. QT is 468, QTC is 522. Assessment: Abnormal EKG, sinus rhythm with first-degree AV block right bundle- branch block this is old compared to previous EKG. QT and QTC have increased since old EKG, and are prolonged.
[2024-03-28 11:08] LABS: Basophils Absolute Auto 0.03 K/uL (0.00-0.30); Basophils Percent Auto 0.4 % (0.0-3.0); Eosinophils Absolute Auto 0.17 K/uL (0.00-0.50); Eosinophils Percent Auto 2.2 % (0.0-7.0); Hematocrit 38.5 % (37.0-53.0); Immature Granulocytes Abs Auto 0.01 K/uL (0.00-0.30); Immature Granulocytes Pct Auto 0.1 %; Lymphocytes Percent Auto 10.8 % (20-44); Mean Corpuscular HGB Conc 31 gm/dL (32-36); Mean Corpuscular Hemoglobin 29 pg (26-34); Mean Corpuscular Volume 93 fL (80-100); Neutrophils Percent Auto 79.5 % (42.0-72.0); Platelet Count* 133 K/uL (140-440); RDW Coefficient of Variation % 13.7 % (11.5-15.5); Red Blood Count 4.15 m/uL (4.30-5.90)
[2024-03-28 11:10] LABS: Slide Review Reflex No
[2024-03-28 11:23] LABS: Albumin* 4.7 g/dL (3.3-5.0); Chloride* 113 mmol/L (96-114); Potassium* 4.9 mmol/L (3.6-5.1); Sodium* 145 mmol/L (135-149)
[2024-03-28 11:25] LABS: Anion Gap 11 mEq/L (7-15); Bilirubin Total* 0.2 mg/dL (0.1-1.5); Carbon Dioxide* 21 mmol/L (20-32); Creatinine* 1.7 mg/dL (0.5-1.5); Est. Creatinine Clearance* 40.58; Estimated Glomerular Filt Rate 41 ml/min
[2024-03-28 11:26] LABS: Alanine Aminotransferase* 20 U/L (4-50); Alkaline Phosphatase* 68 U/L (40-150); Aspartate Amino Transferase* 26 U/L (12-35); Blood Urea Nitrogen* 25 mg/dL (7-30); Calcium* 8.8 mg/dL (8.4-10.6); Glucose* 104 mg/dL (60-115); Lactate Dehydrogenase* 355 U/L (120-246); Total Protein* 7.7 g/dL (6.0-8.3)
--- NOTE | 2024-03-29 12:24 | ONC.NURNOTE ---
Patient came into [facility] stating that he received a phone call stating that his out of pocket would be $30,000, and he is looking for clarification. Per notes his max out of pocket is $2000 with the new Medicare plans, navigator has also enrolled patient into the monthly payment plan. Coil Assembler contacted [facility] to get clarification, and they noted that section 12 was not up to date. Verbally gave them the information that patient noted today that his current OOP max per his plan is $3082.28/month, but with Medicare his max OOP is $2000. They said that this was adequate information and they would contact the patient this afternoon for shipment.
[2024-04-04 12:43] LABS: QuantBCR-ABL Major p210 Result Detected; QuantBCR-ABL Major p210 Source Whole Blood
== END 2024-04-23 23:59 | disposition home or self-care (01) ==
LOC: CCIC 14:00
PROVIDERS: Clinical Nurse Specialist; PCP Family Medicine; Referring Provider Family Medicine; Visit Provider Internal Medicine Hematology & Oncology
DX: C92.11 Chronic myeloid leukemia, BCR/ABL-positive, in remission (principal); I35.0 Nonrheumatic aortic (valve) stenosis; D49.4 Neoplasm of unspecified behavior of bladder; N18.32 Chronic kidney disease, stage 3b; R78.89 Finding of other specified substances, not normally found in blood
CPT/HCPCS: 36415; 80053; 81206; 83615; 83735; 85025; 93005; 93010; 99213; 99214; G0463

== ENCOUNTER 2024-04-12 09:00 | Outpatient (RCR) | payer MEDICARE, OTHER, SELFPAY ==
--- NOTE | 2024-03-13 10:30 | ONC.NURNOTE ---
Continuous Improvement Analyst and patient receiving updates from [facility] as to why 2024 re-enrollment application for Bosulif is still pending although patient had no intention to enroll in the prescription payment plan for part D- [employer] requires a letter and a confirmation # for enrollment Jewel ran into multiple barriers logging in and obtaining this confirmation number and required assistance confirmation # received and called to [facility] [id number]---(either O or 0?)
--- NOTE | 2024-03-15 13:22 | ONC.NURNOTE ---
Patients application is still pending with [facility]- still missing were 2 boxes to be checked relating to consents and contact information - the boxes were cut off from the printer so patient and publications writer did not know these boxes existed. Entire application refaxed in again with medicare P3 confirmation number. Marco Antonio was called with updates and informed that he will need to bring in the letter of enrollment for Medicare P3 when he receives it in the mail
--- NOTE | 2024-03-27 14:26 | ONC.NURNOTE ---
[facility] has the completed application for re-enrollment in the free drug program for 2024, and the application is under review Marco Antonio will be out of Bosutinib by the weekend, [facility] was told he will need medication by Tuesday. The application has been expedited and state there will be an enrollment determination within 48 hours. They will fax a letter to this office and call the patient. Marco Antonio was called with this update.
--- NOTE | 2024-04-03 10:30 | ONC.NURNOTE ---
call to [facility] again: -last Tuesday- this office was informed that enrollment was expedited and patient/office will be contacted within 24 hours of outcome of enrollment -last - RN called and was told that the patient will receive a call on Tuesday about delivery-no enrollment outcome was shared by [facility] -Tuesday patient has not heard from [facility] and he called [facility] and was told they need income verification- patient was confused by this since this info has already been provided at the time of the application in December -today specifications writer phoned [facility] and was told that they are waiting on income verification- specifications writer asked if they had the application where patient had signed for authorization for electronic verification- which they do have on file -today [facility] would not provide any time line for expeditating this process- -patients has 5 days left of bosutinib
--- NOTE | 2024-04-04 10:27 | ONC.NURNOTE ---
Marco Antonio received his bosulif today from [employer] letter received noting expiration date of enrollment as 02/13/25 Patient did not receive a call confirming enrollment, and no letter was faxed to this office confirming enrollment.
== END 2024-08-10 23:59 | disposition home or self-care (01) ==
PROVIDERS: PCP Family Medicine; Visit Provider Family Medicine
DX: M54.50 Low back pain, unspecified (principal); G89.29 Other chronic pain; Z51.89 Encounter for other specified aftercare
CPT/HCPCS: 97110; 97116; 97140; 97162

== ENCOUNTER 2024-09-11 12:52 | Emergency (ER) | payer MEDICARE, OTHER, SELFPAY ==
--- OUTSIDE RECORDS SUMMARY | 2024-09-11 12:54 | XMS_ITS | Encounter Summary ---
Author Organization [facility] Address [address] [place] [address] Care Team Providers Care Senior Ui Developer Name Role Phone Delgado Torres MD Primary Care Provider [phone] Encounter Details Date Type Department Care Team (Late st Contact Info) Description 09/19/2023 Orders Only [facility] [address] [place] [address] Paul Jarrett MD [address] [place] [address] Stage 3b chronic kidney disease (HCC) Social History Tobacco Use Types Packs/Day Years Used Date Smoking Tobacco: Never Smokeless Tobacco: Never Alcohol Use Standard Drinks/Week Comments Not Currently 0 (1 standard drink = 0.6 oz pur e alcohol) occasionally Sex and Gender Information Value Date Recorded Sex Assigned at Not on file Legal Sex Male 12:08 PM EST Gender Identity Not on file Sexual Orientation Not on file documented as of this encounter Plan of Treatment Not on file documented as of this encounter Procedures Procedure Name Priority Date/Time Associated Diagnosis Comments PROTEIN / CREATININE RATIO, URINE Routine 11/02/2023 Stage 3b chronic kidney disease (HCC) HEMOGLOBIN Routine 11/02/2023 Stage 3b chronic kidney disease (HCC) RENAL FUNCTION PANEL Routine 11/02/2023 Stage 3b chronic kidney disease (HCC) documented in this encounter Results * (ABNORMAL) Urine Protein / creatinine ratio (11/02/2023) Creatinine, Urine Random 101 mg/dL [facility] Urine Protein/Creati nine Ratio 0.178(H) mg/mg creat [facility] Protein Urine Random 18 mg/dL [facility] Urine specimen (specimen) Urine specimen obtained by clean catch procedure / Unknown 11/02/2023 Paul Jarrett MD LAB URINE ORDERABLES Final Re sult Performing Organization Address [facility] Co de Phone Number [facility] * (ABNORMAL) Hemoglobin (11/02/2023) Hemoglobin 12.2(L) g/dL [facility] Blood specimen (specimen) Venous blood / Unknown 11/02/2023 Paul Jarrett MD LAB BLOOD ORDERABLES Final Re sult Performing Organization Address [facility] de Phone Number [facility] * (ABNORMAL) Renal function panel (11/02/2023) Glucose 84 mg/dL [facility] BUN 28(H) mg/dL [facility] Creatinine 1.72(H) mg/dL [facility] BUN/Creatinine Ratio 16 [facility] Sodium 141 mEq/L [facility] Potassium 5.2 mEq/L [facility] Chloride 110 [facility] Carbon Dioxide 22 mmol/L [facility] Calcium 9.2 mg/dL [facility] Phosphorus, Serum 3.4 mg/dL [facility] Albumin (Blood) 4.4 g/dL [facility] eGFR 41(L) [facility] Blood specimen (specimen) Venous blood / Unknown 11/02/2023 Paul Jarrett MD LAB BLOOD ORDERABLES Final Re sult Performing Organization Address [facility] de Phone Number [facility] documented in this encounter Visit Diagnoses Diagnosis Stage 3b chronic kidney disease (HCC) documented in this encounter Care Teams Senior Ui Developer Relationship Specialty Start Date End Date Delgado Torres MD [address] [place] [address] PCP - General Family Medicine 01/13/23 documented as of this encounter
--- OUTSIDE RECORDS SUMMARY | 2024-09-11 12:54 | XMS_ITS | Clinical Summary ---
Author Organization [employer] [facility] Address [address] [place] [address] Care Team Providers Care Database Administration Associate Name Role Phone Lawrence Ott MD Unavailable Unavailable Cabrera Simeon Unavailable [phone] Delgado Torres MD Primary Care Provider Allergies Active Allergy Reactions Criticality Noted Date Comments Chlorhexidine Towelette Rash 06/03/2020 Medications nitroglycerin (NITROSTAT) 0.4 mg sublingual tablet TAKE 1 TABLET BY MOUTH SUBLINGUALLY ONCE NEEDED 0 Active acetaminophen (TYLENOL EXTRA STRGTH) 500 mg tablet Take 1,000 mg by mouth every 6 hours if needed. Max acetaminophen dose: 4000mg in 24 hrs. Active bosutinib 500 mg tab Bosutinib 500 mg-Take one tablet by mouth with evening meal once daily 0 1 Active topiramate (TOPAMAX) 100 mg tablet Take 100 mg by mouth at bedtime. 1 Active medication order composer Taking Fe supplement 06/11/22 0 3 Active ferrous sulfate, 65 mg elemental, (FeroSuL) tablet Active rosuvastatin (CRESTOR) 20 mg tabletIndicati ons:S/P TAVR (transcatheter aortic valve replacement),C oronary artery disease involving [place] coronary artery of [place] heart without angina pectoris Take 1 Tablet (20 mg) by mouth at bedtime. 90 Tablet 2 4 Active NIFEdipine (PROCARDIA XL) 30 mg extended-relea se tabletIndicati ons:Hypertensi on Take 1 Tablet (30 mg) by mouth once daily before a meal. 90 Tablet 3 5 Active amoxicillin 500 mg capsule Take 4 capsules by mouth 1 hour prior to dental appointment.* 4 Active gabapentin 300 mg capsuleIndicat ions:RLS (restless legs syndrome) Take 2 capsules by mouth at 9PM and 2 more capsules at 11PM 5 Active buPROPion 150 mg Extended-Relea se tabletIndicati ons:Depression , major, single episode, moderate (HC) TAKE ONE TABLET BY MOUTH ONE TIME DAILY 90 Tablet 5 Active Active Problems Problem Noted Date Diagnosed Date Chronic low back pain without sciatica 4 Anemia in stage 3b chronic kidney disease 2022 Hypertensive kidney disease with stage 3b chronic kidney disease 12/30/2022 Alcohol abuse 04/14/2022 Dyspepsia 04/14/2022 Benign essential HTN 04/14/2022 Restless leg syndrome 04/14/2022 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 12/11/2020 Overview (12/11/2020): EGD 11/2020 4 mm ulcer in duodenum, omeprazole 20 mg/day for 2 months S/P TAVR 06/03/2020 06/12/2020 Stage 3b chronic kidney disease 04/24/2020 Chronic myeloid leukemia, BC R/ABL-positive, not having achieved remission 04/24/2020 Coronary artery disease invo lving [place] coronary artery of [place] heart without angina pectoris 04/24/2020 RBBB (right bundle branch block) 04/24/2020 Adenomatous colon polyp 11/10/2011 Overview (06/02/2022): Colonoscopy 10/2011 polyps repeat in 5 years Colonoscopy 03/2017 multiple polyps, repeat in 3 years Colonoscopy 05/2022 TA, repeat in 5 years, propofol Other and unspecified hyperlipidemia 09/06/2006 Depression Resolved Problems Problem Noted Date Diagnosed Date Resolved Date CKD (chronic kidney disease) stage 3, GFR 30-59 ml/min 04/29/2022 12/30/2022 Depression, major, single episode, moderate 04/14/2022 11/11/2023 Thrombocytopenia 09/11/2021 07/15/2023 Severe aortic stenosis 05/16/202011/10 Aortic stenosis 12/17/2013 06/12/2020 Chronic myelogenous leukemia 06/12/2012 06/12/2020 Dyspnea on exertion 04/15/19 23 Encounters Date Type Department Care Team Description 07/25/2024 Refill [facility] [address] [place] [address] Delgado Torres MD Refill Request (Bupropion) 06/27/2024 1:30 PM CDT Office Visit [facility] [address] [place] [address] Favio Van MD Sleep Follow-up 06/26/2024 Travel from Last 3 Months Immunizations Immunization Administration Dates Next Due AMB Influenza, IIV3 (Age >=3 years)(Flu Clinic Only) 01/14/2010,01/22/2009 Amb Influenza, Inact (High-d ose) (Flu Clinic Only) 11/15/2014 COVID-19 VACCINE SPIKEVAX (M ODERNA 50MCG/0.5ML) 12YO+ PFS 11/11/2023,12/31/2022 COVID-19 vaccine (Pfizer-Bio NTech 30mcg/0.3mL) PF, MDV 05/03/2020,04/12/2020 Influenza, High-dose Inactivated 11/14/2015,03/2014,12/17/2013 Influenza, High-dose Quadriv alent Inactivated 11/04/2021,11/19/2020 Influenza, IIV3 (Age 6-35 mos) 01/22/2009 Influenza, IIV3 (Age >=3 years) 12/26/19 13,10/27/2011,01/14/2010,2005 Influenza, IIV4 10/18/2014 Influenza, Inactivated AIIV4 (Age 65+ Years) Preserv Free 12/31/2022,10/29/2019 Influenza, Inactivated IIV3 (Age 65+ Years) Preserv Free 11/11/2023,11/14/2018,10/26/2017,2017 Pneumococcal Conj 20-valent (Prevnar 20) 04/14/2022 Pneumococcal Poly,23-Valent (Pneumovax) 03/07/2013 Pneumococcal conj 13-Valent (Prevnar 13) 07/30/2015 Td (Age >=7 Years) 02/14/1998 Tdap 10/27/2011 Zoster (Shingrix-RZV, recombinant) 05/11/2022, Zoster (Zostavax-ZVL, live) 12/25/2012 Social History Tobacco Use Types Packs/Day Years Used Date Smoking Tobacco: Never Smokeless Tobacco: Never Tobacco Cessation:Counseling Given: Yes Comments:son smokes outside. Alcohol Use Standard Drinks/Week Comments Yes 5 (1 standard drink = 0.6 oz pur e alcohol) Pattern varies PHQ-2 Answer Date Recorded PHQ-2 TOTAL SCORE 6 11/11/2023 Social Connections Answer Date Recorded Do you often feel lonely or isolated from those around you? 0 07/15/2023 Financial Resource Strain Answer Date R ecorded Difficulty of Paying Living Expenses 3 07/15/2023 Difficulty of Paying Living Expenses Not on file 07/15/2023 Food Insecurity Answer Date Recorded Do you worry your food will run out before you are able to buy more? 1 07/15/2023 Transportation Needs Answer Date Record ed Does lack of transportation keep you from medica l appointments? 1 07/15/2023 Does lack of transportation keep you from work, meetings or getting things that you need? 1 07/15/2023 Housing Stability Answer Date Recorded What is your housing situation today? 1 07/15/2023 Utilities Answer Date Recorded Do you have trouble paying f or utilities (for example, heat, electricity, water, phone)? 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 Gender Identity Not on file Sexual Orientation Not on file Obstetrics History Last Filed Vital Signs Vital Sign Reading Time Taken Comments Blood Pressure 117/66 06/27/2024 1:18 PM CDT Pulse 80 06/27/2024 1:18 PM CDT Temperature 36 C (96.8 F) 08/03/2023 5:45 PM CDT Respiratory Rate 16 08/03/2023 6:10 PM CDT Oxygen Saturation 97% 06/27/2024 1:18 PM CDT Inhaled Oxygen Concentration - - Weight 82.8 kg (182 lb 9.6 oz) 06/27/2024 1:18 P M CDT Height 184.5 cm (6' 0.64) 06/27/2024 1:18 PM CD T Body Mass Index 24.33 06/27/2024 1:18 PM CDT Plan of Treatment Health Maintenance Due Date Last Done Comments Tetanus booster 10/26/2021 10/27/2011, 10/15, 02/14/1998 RSV vaccine for adults or (1 - 1-dose 75+ series) 07/15/2022 COVID-19 vaccine series (8 - Pfizer risk 2023- season) 2024 11/11/2023, 12/31/2022, 11/04/2021, Additional history exists Influenza Vaccine (#1) 2024 , 12/31/2022, 10/29/2019, Additional history exists Medicare Wellness for age 65+ 11/11/2024 11/11/2023, 04/14/2022, 10/29/2019, Additional history exists Depression screening for age 12+ 11/13/2024 11/14/2023, 11/14/2023, 11/11/2023, Additional history exists BMI (ht and wt on same day) for age 18+ 06/27/2025 06/27/2024, 03/08/2024, 01/05/2024, Additional history exists Hepatitis C screening for age 18-79 Completed 06/12/2020 Pneumococcal series for age 50+ Completed 04/14/2022, 07/30/2015, 03/07/2013 Zoster (shingles) series for age 50+ Completed 05/11/2022, 03/08/2022, 12/25/2012 Hepatitis B series for 19+ Aged Out N o longer eligible based on patient's age to complete this topic Procedures Procedure Name Priority Date/Time Associated Diagnosis Comments ANTI HCV Routine 06/12/2020 1:13 PM CDT Need for hepatitis C screening test from Last 3 Months or Most Recently Relevant to Health Maintenance Results * ANTI HCV (06/12/2020 1:13 PM CDT) HEPATITIS C ANTIBODY Non-React phuong Non-React phuong 06/12/2020 8:43 PM CDT [facility] Comment:Antibodies to HCV no t detected; does not exclude the possibility of exposure to HCV. Blood BLOOD SPECIMEN / Unknown Venipuncture / Unknown 06/12/2020 1:13 PM CDT 06/12/2020 1:13 PM CDT us Delgado Torres MD SEND OUTS Final Result [facility] 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 Healthcare Directive 03/22/2005 006 Power of Assistant Professor Surgical Technology 08/14/1997 08/14/1997 * Full Code (Latest Code Status on File) Date Activated Date Inactivated Comments 08/03/2023 1:16 PM 08/03/2023 8:50 PM Question Answer Comments Code Status Discussion: Unable to Assess Preferences, Provider to review later * Full Code Date Activated Date Inactivated Comments 06/03/2020 9:10 AM 06/04/2020 3:21 PM Question Answer Comments Code Status Discussion: Not Discussed * Full Code Date Activated Date Inactivated Comments 05/09/2020 12:58 PM 05/09/2020 6:07 PM Question Answer Comments Code Status Discussion: Discussed Care Teams Database Administration Associate Relationship Specialty Start Date End Date Delgado Torres MD [address] [place] [address] PCP - General Family Practice 06/06/20 Lawrence Ott MD Hematology and Oncology 03/07/13 Cabrera Simeon [address] [place], [place] [id number] Line Department Supervisor 03/07/13
--- OUTSIDE RECORDS SUMMARY | 2024-09-11 12:54 | XMS_ITS | Clinical Summary ---
Author Organization [facility] Address [address] [facility] , [address] [place] [address] Phone Care Team Providers Care Publicity Writer Name Role Phone System Maintenance Unavailable [phone] Conditions or Problems Problem Name Problem Code Onset Date Status Entry Date Provider Comment Standard Description Annotate Migraine aura without headache 766245406 (SNOMED CT) Active Marlon Bliss MD Migraine aura without headache Anxiety disorder 977374652 (SNOMED CT) Active Marleny Preston MD Anxiety disorder Confusional state 825408975 (SNOMED CT) Active Marleny Preston MD Confusional state Leukemia 07027084 (SNOMED CT) Active Marleny Preston MD Leukemia Memory impairment 923468362 (SNOMED CT) Active Marleny Preston MD Memory impairment Medications Medication Instructions Start Date Stop Date Generic Name NDC Provider TOPIRAMATE 100 MG TABS TAKE ONE TABLET BY MOUTH ONE TIME DAILY AT BEDTIME 08/27 topiramate [id number] Cherelle Mckeon RN, MHA, MSCN TOPIRAMATE 100 MG TABS TAKE ONE TABLET BY MOUTH AT BEDTIME topiramate 69739935466 Marlon Bliss MD ACETAMINOPHEN 500 MG TABS Take 1000 mg by mouth every six hours as needed acetaminophen 02777696200 Parris RUBALCAVA-C BUPROPION HCL ER (XL) 150 MG [id number] Take 1 tablet by mouth once a day bupropion hcl 07168611886 Parris RUBALCAVA-C GABAPENTIN 300 MG CAPS One oral at bedtime. May increase to two after 1 week if needed. gabapentin 09999952973 Parris Flanneryil PA-C LEVOFLOXACIN 500 MG TABS Take 1 Tablet (500 mg) by mouth once daily for 1 day 08/18 levofloxacin 06563303199 Parris Flanneryil PA-C OMEPRAZOLE 20 MG TBEC Take 1 tablet by mouth once a day omeprazole 95144820355 Parris [place] TX-C AMLODIPINE BESYLATE 5 MG TABS tablet by mouth 08/18 amlodipine 15138974638 Parris Flanneryil PA-C AMLODIPINE BESYLATE 5 MG TABS TAKE ONE TABLET BY MOUTH ONE TIME DAILY 08/18 amlodipine 54697376478 Parris Flanneryil PA-C AMLODIPINE BESYLATE 5 MG TABS Take 1 tablet by mouth once a day 08/18 amlodipine 86457799784 Parrisyousif [place]-C D [address] 250 MCG (38655 UT) CAPS Take 1 capsule by mouth once a day 08/18 cholecalciferol (vitamin d3) 59797755701 Parrisyousif [place] PA-C NITROGLYCERIN 0.4 MG SUBL Take 1 tablet under tongue single dose as needed nitroglycerin 50425334080 Parrisyousif Flanneryil PA-C ROSUVASTATIN CALCIUM 20 MG TABS Take 1 tablet by mouth every night rosuvastatin 03497998665 Parrisyousif Flanneryil PA-C TRIAMCINOLONE ACETONIDE 0.1 % CREA Apply to skin twice a day triamcinolone acetonide 59356397499 Parris Mavis Flanneryil PA-C GLEEVEC 400 MG TABS tablet by mouth imatinib 71948197465 Parrisyousif Flanneryil PA-C NIFEDIPINE ER OSMOTIC RELEASE 30 MG [id number] nifedipine 03048492891 Parrisyousif Flanneryil PA-C TOPIRAMATE 100 MG TABS Take 1 tablet by mouth every evening TAKE ONE TABLET BY MOUTH ONE TIME DAILY AT BEDTIME 07/27 topiramate 06237376458 Marlon Bliss MD TOPIRAMATE 100 MG TABS Take 100 mg by mouth at bedtime. 07/27 topiramate 84943877410 Marlon Bliss MD TOPIRAMATE 100 MG TABS TAKE ONE TABLET BY MOUTH ONE TIME DAILY AT BEDTIME 08/27 topiramate 28464479239 Marlon Bliss MD BUPROPION HCL ER (XL) 150 MG [id number] TAKE ONE TABLET BY MOUTH ONE TIME DAILY bupropion hcl 64972049420 Marlon Bliss MD ROSUVASTATIN CALCIUM 20 MG TABS TAKE ONE TABLET BY MOUTH AT BEDTIME rosuvastatin 17083395944 Marlon Bliss MD TRIAMCINOLONE ACETONIDE 0.1 % CREA Apply topically to affected area(s) 2 times daily. triamcinolone acetonide 86900328563 Marlon Bliss MD LEVOFLOXACIN 500 MG TABS Take 1 Tablet (500 mg) by mouth once daily for 1 day 08/18 levofloxacin 07911376422 Marlon Bliss MD AMLODIPINE BESYLATE 5 MG TABS TAKE ONE TABLET BY MOUTH ONE TIME DAILY 08/24 amlodipine 89783670585 Marlon Bliss MD GABAPENTIN 300 MG CAPS take 1 capsule by mouth once daily at bedtime. may increase to 2 capsules at bedtime after 1 week if needed. gabapentin 45061206014 Marlon Bliss MD OMEPRAZOLE 20 MG CPDR Take 1 Tablet (20 mg) by mouth once daily before a meal omeprazole 91256304475 Marlon Bliss MD TOPIRAMATE 100 MG TABS Take 1 tablet by mouth every evening TAKE ONE TABLET BY MOUTH ONE TIME DAILY AT BEDTIME 07/27 topiramate 71348402792 Marlon Bliss MD TRIAMCINOLONE ACETONIDE 0.1 % CREA Apply topically to affected area(s) 2 times daily. 08/18 triamcinolone (ARISTOCORT; KENALOG) 0.1 % cream 36901799835 Marlon Bliss MD TOPIRAMATE 100 MG TABS Take 100 mg by mouth at bedtime. 07/27 topiramate (TOPAMAX) 100 mg tablet [id number] Marlon Bliss MD ROSUVASTATIN CALCIUM 20 MG TABS Take 1 Tablet (20 mg) by mouth at bedtime. Due for cardiology follow up in June 2021. Please call [phone] to schedule. 08/24 rosuvastatin (CRESTOR) 20 mg tablet [id number] Marlon Bliss MD OMEPRAZOLE 20 MG TBEC Take 1 Tablet (20 mg) by mouth once daily before a meal. 08/18 omeprazole 20 mg tablet [id number] Marlon Bliss MD NITROGLYCERIN 0.4 MG SUBL TAKE 1 TABLET BY MOUTH SUBLINGUALLY ONCE NEEDED 08/18 nitroglycerin (NITROSTAT) 0.4 mg sublingual tablet 48388807318 Marlon Bliss MD GABAPENTIN 300 MG CAPS One oral at bedtime. May increase to two after 1 week if needed. 08/24 gabapentin (NEURONTIN) 300 mg capsule [id number] Marlon Bliss MD VITAMIN D3 250 MCG (64312 UT) CAPS Take 1 Capsule (10,000 units) by mouth once daily. 07/29 cholecalciferol, Vitamin D3, 10,000 unit capsule 01723947658 Marlon Bliss MD BUPROPION HCL ER (XL) 150 MG [id number] Take 1 Tablet (150 mg) by mouth once daily. 08/18 buPROPion (WELLBUTRIN XL) 150 mg Extended-Release tablet [id number] Marlon Bliss MD AMLODIPINE BESYLATE 5 MG TABS TAKE ONE TABLET BY MOUTH ONE TIME DAILY 08/24 amLODIPine (NORVASC) 5 mg tablet [id number] Marlon Bliss MD ACETAMINOPHEN 500 MG TABS Take 1,000 mg by mouth every 6 hours if needed. Max acetaminophen dose: 4000mg in 24 hrs. 08/18 acetaminophen (TYLENOL EXTRA STRGTH) 500 mg tablet 49446818586 Marlon Bliss MD AMLODIPINE BESYLATE 5 MG TABS 08/24 AMLODIPINE BESYLATE 72458496875 Marleny Preston MD GLEEVEC 400 MG TABS 03/22 IMATINIB MESYLATE [id number] Marleny Preston MD Medications Administered No information available. Allergies, Adverse Reactions, Alerts Allergy Name Reaction Description Start Date Severity Statu s Provider CHLORHEXIDINE TOWELETTE Rash Mild Activ e Marlon Bliss MD Results Date Name Value Unit Range Flag Description Internal Other: Authorizatio n - OBS PTSTAUTHDT Done PT Startin g Authorization Date Office Visit: OK PER LH fax SMOK STATUS never smoker Toba account development manager smoking status Internal Other: Verbal Autho rization/Emergency Contact - OBS VERBAL_EMER Done Verbal au thorization and emergency contact Office Visit: Office Visit f ax MEDS REVIEW Done Documenta tion of current medications (procedure) Internal Other: Authorizatio n - OBS [email or web address] Yes Authoriza tion: Release of Information - Authorize [facility] - Payment and Healthcare Operations ROIAUTHOTHER Yes Authoriz ation: Release of Information - Authorize Others/Insurance - Payment and Healthcare Operations HIECONSENT Yes Consent To Release information to the Health Information Exchange (HIE) [email or web address] Yes Authorizat ion: Authorization for [facility] to leave messages, voicemail, send text messages, send emails AUTHRELHCARE Yes Authoriz ation: Release/Retrieval of Information to/from Healthcare Facilities, Pharmacy Benefit Payers and Providers AUTHPRIVPRAC Yes Authoriz ation: Notice of privacy practices AUTHBENEFIT Yes Authoriza tion: Assignment of Benefits and Payment Agreement Plan of Care Type Date Detail Appointment 09:30 AM Parris [place] PA-C, [address] [facility], [address], [place], [address], Pending order Follow up TUAN Pending order Follow up TUAN Pending order Patient Instruct ions Pending order Follow up Pending order Patient Instruct ions Pending order Follow up TUAN in clinic or telemedicine Pending order Obtain outside r ecords Pending order Patient Instruct ions Pending order Patient Instruct ions Pending order Follow up Pending order Other Test Pending order Patient Instruct ions Pending order Follow up Pending order Follow up Pending order Patient Instruct ions Pending order MRI-Brain W/WO Pending order MRA-Head W/ Pending order Patient Instruct ions Pending order Follow up Pending order Other Test Procedures Code Procedure Name Date Entry Date [facility]-[id number] Documentation of current medicatio ns ORDERS Patient Instructions ORDERS Follow up ORDERS Patient Instructions ORDERS Follow up TUAN in clinic or telemedicine 2 ORDERS Obtain outside records 07/22 [facility]-[id number] Documentation of current medicatio ns ORDERS Patient Instructions [facility]-[id number] Documentation of current medicatio ns ORDERS Patient Instructions ORDERS Follow up ORDERS Follow up [facility]-[id number] Documentation of current medicatio ns ORDERS Patient Instructions [facility]-[id number] Documentation of current medicatio ns [id number] Other Test [facility]-[id number] Documentation of current medicatio ns ORDERS Patient Instructions ORDERS Follow up [id number] MRI-Brain W/WO [id number] MRA-Head W/ [facility]-[id number] Other Test ORDERS Follow up ORDERS Patient Instructions [facility]-[id number] Documentation of current medicatio ns Vital Signs Date Name Value Unit Description Height 74 [in_us] height E&M BP Diastolic 73 mm[Hg] blood pressu re, diastolic BP Systolic 128 mm[Hg] blood pressur e, systolic Heart Rate 84 /min pulse rate BMI (Body Mass Index) 25.51 kg/m2 Bod y Mass Index (Ratio) Weight Measured 198 [lb_av] weight E& M Weight Measured 198 [lb_av] weight E& M Immunizations No information available. Advance Directives No information available.
--- OUTSIDE RECORDS SUMMARY | 2024-09-11 12:54 | XMS_ITS | Encounter Summary ---
Author Organization [facility] Address [address] [place] [address] Care Team Providers Care Swage Toolsetter Name Role Phone Delgado Torres MD Primary Care Provider [phone] Encounter Details Date Type Department Care Team (Late st Contact Info) Description 03/04/2024 Orders Only [facility] [address] [place] [address] Amanda Putnam, INTERACTIVE ART DIRECTOR-ATHLETIC COACH Stage 3b chronic kidney disease (HCC) Social [...] on file documented as of this encounter Visit Diagnoses Diagnosis Stage 3b chronic kidney disease (HCC) documented in this encounter Care Teams Swage Toolsetter Relationship Specialty Start Date End Date Delgado Torres MD [address] [place] [address] PCP - General Family Medicine 01/13/23 documented as of this encounter
--- OUTSIDE RECORDS SUMMARY | 2024-09-11 12:54 | XMS_ITS | Clinical Summary ---
Author Organization [facility] [place] Address [address] [place] [address] Phone Care Team Providers Care It Infrastructure Manager Name Role Phone Delgado Torres MD Primary Care Provider [phone] Allergies Active Allergy Reactions Criticality Noted Date Comments Chlorhexidine Rash Low 06/03/2020 Medications acetaminophen (TYLENOL) 500 MG tablet Take 1,000 mg by mouth every 6 (six) hours if needed for mild pain Active bosutinib (BOSULIF) 500 MG chemo tablet Take 500 mg by mouth 1 (one) time each day with dinner 1 Active buPROPion XL (WELLBUTRIN XL) 150 MG 24 hr tablet Take 150 mg by mouth 1 (one) time each day in the morning 4 Active gabapentin (NEURONTIN) 300 MG capsule Take 1,200 mg by mouth 1 (one) time each day in the evening 3 Active NIFEdipine XL (PROCARDIA XL) 30 MG 24 hr tablet Take 30 mg by mouth 1 (one) time each day 3 Active nitroglycerin (NITROSTAT) 0.[address] 0.4 mg under the tongue every 5 (five) minutes if needed for chest pain 0 Active rosuvastatin (CRESTOR) 20 MG tablet Take 20 mg by mouth 1 (one) time each day 3 Active topiramate (TOPAMAX) 100 MG tablet Take 200 mg by mouth in the morning and 200 mg in the evening. 1 Active ferrous sulfate 325 (65 Fe) MG EC tablet Take 325 mg by mouth 1 (one) time each day with breakfast Do not crush, chew, or split. 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 History of aortic valve replacement 06/12/2020 Stage 3b chronic kidney disease 04/24/2020 Chronic myeloid leukemia wit hout mention of having achieved remission 04/24/2020 Coronary arteriosclerosis 04/24/2020 Immunizations Immunization Administration Dates Next Due Influenza Vaccine, Quadrivalent, Adjuvanted 12/15,10/29/2019 Moderna Sars-cov-2 (Covid-19 ) Vaccine, Mrna, Jose M Protein 12/31/2022 Pfizer SARS-COV-2 05/03/2020,04/12/2020 Pneumococcal Conjugate Pcv 20 04/14/2022 Shingrix 05/11/2022,03/08/2022 Social History Tobacco Use Types Packs/Day Years Used Date Smoking Tobacco: Never Smokeless Tobacco: Never Tobacco Cessation:Counseling Given: Not Answered Alcohol Use Standard Drinks/Week Comments Not Currently 0 (1 standard drink = 0.6 oz pur e alcohol) occasionally Sex and Gender Information Value Date Recorded Sex Assigned at Not on file Legal Sex Male 12:08 PM EST Gender Identity Not on file Sexual Orientation Not on file Last Filed Vital Signs Vital Sign Reading Time Taken Comments Blood Pressure 116/62 11/03/2023 9:43 AM CDT Pulse 65 11/03/2023 9:43 AM CDT Temperature - - Respiratory Rate - - Oxygen Saturation 97% 11/03/2023 9:43 AM CDT Inhaled Oxygen Concentration - - Weight 84.4 kg (186 lb) 11/03/2023 9:43 AM CDT Height 182.9 cm (6') 11/03/2023 9:43 AM CDT Body Mass Index 25.23 11/03/2023 9:43 AM CDT Plan of Treatment Health Maintenance Due Date Last Done Comments Influenza Vaccine (#1) 2024 , 12/31/2022, 10/29/2019 Pneumococcal Vaccine: 50+ Years Completed 04/14/2022 Hepatitis B Vaccine Aged Out No longe r eligible based on patient's age to complete this topic Insurance [employer] Care Teams It Infrastructure Manager Relationship Specialty Start Date End Date Delgado Torres MD [address] [place] [address] PCP - General Family Medicine 01/13/23
[2024-09-11 13:06] VITALS: BP 109/69; PULSE 62; RESP 18; TEMP 36.8; O2SAT 94; BMI 24.4
--- NOTE | 2024-09-11 14:24 | ED.GENADULT ---
HPI - General Adult General Chief complaint: Diarrhea Stated complaint: diarrhea x1 week Time Seen by Provider: 09/11/24 12:54 History of Present Illness HPI narrative: Pt has had diarrhea for the past 7 days . 2 days prior Pt had dental appointment and was taking amoxicillin premed d/t aortic valve replacement. Pt is worried about C-diff from antibiotic use. Pt denies pain. 79-year-old man presenting to the emergency depart with concern of diarrhea and that it might be C diff. couple days ago without a dental appointment and premedicated with a singular dosing, higher dose I believe, of amoxicillin. History also chronic myeloid leukemia in remission Today actually has only had 3 or 4 bowel movements otherwise it is at 6, 7, 8+ a day over the last week. Has not had a fever and is not experiencing significant pain. No hematochezia noted. Related Data Home Medications ?Medication ?Instructions ?Recorded ?Confirmed acetaminophen 500 mg capsule 500 mg PO Q6H PRN 08/24/21 09/11/24 bupropion HCl 150 mg 24 hr tablet, 150 mg PO DAILY 08/24/21 09/11/24 extended release nitroglycerin 0.4 mg sublingual 0.4 mg sublingual Q5-15M PRN 08/24/21 09/11/24 tablet rosuvastatin 20 mg tablet 20 mg PO .QHS 08/24/21 09/11/24 topiramate 100 mg tablet 100 mg PO .QHS 08/24/21 09/11/24 nifedipine 30 mg tablet,extended 30 mg PO DAILY 06/22/22 09/11/24 release gabapentin 100 mg capsule 400 mg PO QDAY 07/06/23 09/11/24 ferrous sulfate 200 mg (40 mg mg PO QDAY 10/26/23 04/09/24 iron) tablet Previous Rx's ?Medication ?Instructions ?Recorded bosutinib 100 mg tablet 100 mg PO QDAY #30 tabs 12/19/23 bosutinib 500 mg tablet 500 mg PO DAILY #30 tabs 12/19/23 Allergies Allergy/AdvReac Type Severity Reaction Status Date / Time Chlorhexidine Allergy Mild itching Uncoded 09/11/24 13:13 skin Review of Systems Status of ROS: Reports: 6 or more systems reviewed and unremarkable except as noted in History and below [facility] Medical History GERMANIA (acute kidney injury) ?N17.9 - Acute kidney failure, unspecified (ICD-10) 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) Thrombocytopenia ?D69.6 - Thrombocytopenia, unspecified (ICD-10) Rib injury ?S29.9XXA - Unspecified injury of thorax, initial encounter (ICD-10) Lung nodule ?R91.1 - Solitary pulmonary nodule (ICD-10) Hypovolemic shock ?R57.1 - Hypovolemic shock (ICD-10) Hypertension ?I10 - Essential (primary) hypertension (ICD-10) Gastrointestinal hemorrhage due to nonsteroidal antiinflammatory drug ?K92.2 - Gastrointestinal hemorrhage, unspecified (ICD-10) ?T39.395A - Adverse effect of other nonsteroidal anti-inflammatory drugs [NSAID], initial encounter (ICD-10) Fatigue ?R53.83 - Other fatigue (ICD-10) Anemia ?D64.9 - Anemia, unspecified (ICD-10) Abrasion of left cornea ?S05.02XA - Injury of conjunctiva and corneal abrasion without foreign body, left eye, initial encounter (ICD-10) Pleural effusion ?J90 - Pleural effusion, not elsewhere classified (ICD-10) History of malignant neoplasm of testis ?Z85.47 - Personal history of malignant neoplasm of testis (ICD-10) 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 - Chronic myeloid leukemia, BCR/ABL-positive, in remission (ICD-10) Anemia due to acute blood loss ?D62 - Acute posthemorrhagic anemia (ICD-10) Vestibular migraine ?G43.809 - Other migraine, not intractable, without status migrainosus (ICD-10) Aortic stenosis ?I35.0 - Nonrheumatic aortic (valve) stenosis (ICD-10) QT prolongation ?R94.31 - Abnormal electrocardiogram [ECG] [EKG] (ICD-10) Surgical History S/P TAVR (transcatheter aortic valve replacement) ?Z95.2 - Presence of prosthetic heart valve (ICD-10) Social History Smoking Status: Never smoker Do you use any of these nicotine containing products: None Second hand tobacco smoke exposure: No How often do you have a drink containing alcohol: never How often do you have six or more drinks on one occasion: Never AUDIT-C Alcohol total score: 0 Non-prescribed substance use: denies use service: No Exam Narrative: Exam Narrative: Pleasant. NAD. Skin is warm and dry. Well-perfused. Heart in regular rate and rhythm. Breathing easily with would appear to be clear lungs. Abdomen is soft and nontender. Const: Vital Signs, click to edit/add: Vital Signs - 24 hr 09/11/24 13:06 Temperature 98.2 F Pulse Rate [Right Pulse Oximeter] 62 Respiratory Rate 18 Blood Pressure [Ri ght Upper Arm] 109/69 Pulse Oximetry 94 Oxygen Delivery Me thod Room Air Documenting provider has reviewed patient's vital signs: yes Course Vital Signs Vital signs: Initial Vital Signs Temperature 98.2 F 09/11/24 13:06 Temperature Source Temporal Artery Scan 09/11/24 13:06 Pulse Rate 62 09/11/24 13:06 Pulse Rhythm Regular 09/11/24 13:06 Respiratory Rate 18 09/11/24 13:06 Blood Pressure 109/69 09/11/24 13:06 Blood Pressure Mean 82 09/11/24 13:06 Blood Pressure Position Sitting 09/11/24 13:06 Pulse Oximetry 94 09/11/24 13:06 Oxygen Delivery Method Room Air 09/11/24 13:06 Vital Signs Temperature 98.2 F 09/11/24 13:06 Pulse Rate 62 09/11/24 13:06 Respiratory Rate 18 09/11/24 13:06 Blood Pressure 109/69 09/11/24 13:06 Pulse Oximetry 94 09/11/24 13:06 Oxygen Delivery Method Room Air 09/11/24 13:06 Temperature 98.2 F 09/11/24 13:06 Pulse Rate 62 09/11/24 13:06 Respiratory Rate 18 09/11/24 13:06 Blood Pressure 109/69 09/11/24 13:06 Pulse Oximetry 94 09/11/24 13:06 Oxygen Delivery Method Room Air 09/11/24 13:06 Medical Decision Making MDM Narrative Medical decision making narrative: Appears to be mostly keeping up with hydration status. Can certainly screen for C diff. I do not know that need to be doing other larger workup at this point. Does not have notable abdominal pain nor fever nor hematochezia. Would also look for other sources of diarrhea probably with a stool culture. Was contemplating discharging home but ultimately able to produce a sample here in the emergency department which was negative for C diff. Stool culture still pending. See patient discharge plan for further discussion Hopefully today's an indication of some improvement for you. I will call you if the results are positive; in other words if requiring treatment for C diff. A stool culture will be pending in the background though as well and you might receive a call if treatment might be indicated from these results. If C diff is negative, then you might try Imodium to further slow up your diarrhea. This can be purchased [id number]. You can take this as long as we have not found a treatable infection, you are not experiencing a fever and you are not seeing blood in your stool. Be seen for diarrhea persisting yet another week. Do try to keep up with fluids. This might include supplementation with electrolyte drinks. Be seen also for increasing and persistent abdominal pain, fever, increasing weakness. Medical Records Medical records reviewed: Yes I reviewed the patient's medical records Lab Data Lab results reviewed: Yes I reviewed the patient's lab results Labs: Lab Results 09/11/24 Range/Units 14:22 Stl C. diff Tox B Gene Negative (Negative) Stl C. diff [id number] PRESUMPTIVE NEGATIVE (Negative) Discharge Plan Discharge Clinical Impression: Diarrhea Patient Disposition: Home, Self-Care Condition: Stable Additional Instructions: Hopefully today's an indication of some improvement for you. I will call you if the results are positive; in other words if requiring treatment for C diff. A stool culture will be pending in the background though as well and you might receive a call if treatment might be indicated from these results. If C diff is negative, then you might try Imodium to further slow up your diarrhea. This can be purchased [id number]. You can take this as long as we have not found a treatable infection, you are not experiencing a fever and you are not seeing blood in your stool. Be seen for diarrhea persisting yet another week. Do try to keep up with fluids. This might include supplementation with electrolyte drinks. Be seen also for increasing and persistent abdominal pain, fever, increasing weakness. Prescriptions: No Action gabapentin 100 mg capsule 400 mg PO QDAY ferrous sulfate 200 mg (40 mg iron) tablet PO QDAY nifedipine 30 mg tablet extended release 30 mg PO DAILY topiramate 100 mg tablet 100 mg PO .QHS Patient Comments: TAKE ONE TABLET BY MOUTH ONE TIME DAILY AT BEDTIME rosuvastatin 20 mg tablet 20 mg PO .QHS Patient Comments: Take 1 Tablet (20 mg) by mouth at bedtime. Due for cardiology follow up. Please call [phone] to schedule. bupropion HCl 150 mg tablet extended release 24 hr 150 mg PO DAILY Patient Comments: TAKE ONE TABLET BY MOUTH ONE TIME DAILY acetaminophen 500 mg capsule 500 mg PO Q6H PRN Rx Instructions: Take 1-2 every 6 hours as needed. nitroglycerin 0.4 mg tablet, sublingual 0.4 mg sublingual Q5-15M PRN Rx Instructions: do not exceed 3 doses per episode bosutinib 500 mg tablet 500 mg PO DAILY Qty: 30 3RF Rx Instructions: administer one x 100 mg tablet with one x 500 mg tablet for total dose = 600 mg; must administer with a meal/food bosutinib 100 mg tablet 100 mg PO QDAY Qty: 30 3RF Rx Instructions: administer one x 100 mg tablet with one x 500 mg tablet for total dose = 600 mg Follow Up/Referrals: Delgado Torres MD [Primary Care Provider, Family Practice] Stand Alone Forms: [employer] Info Instructions
--- OUTSIDE RECORDS SUMMARY | 2024-09-11 14:38 | XMS_ITS | Clinical Summary ---
Author Organization [facility] Address [address] , [address] [place] [address] Phone Care Team Providers Care Hot Press Operator Name Role Phone System Maintenance Unavailable [phone] Conditions or Problems Problem Name Problem Code Onset Date Status Entry Date Provider Comment Standard Description Annotate Migraine aura without headache 282590150 (SNOMED CT) Active Marlon Bliss MD Migraine aura without headache Anxiety disorder 819135760 (SNOMED CT) Active Marleny Preston MD Anxiety disorder Confusional state 967905869 (SNOMED CT) Active Marleny Preston MD Confusional state Leukemia 04248651 (SNOMED CT) Active Marleny Preston MD Leukemia Memory impairment 291699438 (SNOMED CT) Active Marleny Preston MD Memory impairment Medications Medication Instructions Start Date Stop Date Generic Name NDC Provider TOPIRAMATE 100 MG TABS TAKE ONE TABLET BY MOUTH ONE TIME DAILY AT BEDTIME 08/27 topiramate [id number] Cherelle Mckeon RN, MHA, MSCN TOPIRAMATE 100 MG TABS TAKE ONE TABLET BY MOUTH AT BEDTIME topiramate 92954262736 Marlon Bliss MD ACETAMINOPHEN 500 MG TABS Take 1000 mg by mouth every six hours as needed acetaminophen 66145791244 Parris RUBALCAVA-C BUPROPION HCL ER (XL) 150 MG [id number] Take 1 tablet by mouth once a day bupropion hcl 89217598806 Parris RUBALCAVA-C GABAPENTIN 300 MG CAPS One oral at bedtime. May increase to two after 1 week if needed. gabapentin 75197488828 Parris Flanneryil PA-C LEVOFLOXACIN 500 MG TABS Take 1 Tablet (500 mg) by mouth once daily for 1 day 08/18 levofloxacin 98676178697 Parris Flanneryil PA-C OMEPRAZOLE 20 MG TBEC Take 1 tablet by mouth once a day omeprazole 59095891427 Parris Branch FL-C AMLODIPINE BESYLATE 5 MG TABS tablet by mouth 08/18 amlodipine 71595949789 Parris Flanneryil PA-C AMLODIPINE BESYLATE 5 MG TABS TAKE ONE TABLET BY MOUTH ONE TIME DAILY 08/18 amlodipine 01485542799 Parris Flanneryil PA-C AMLODIPINE BESYLATE 5 MG TABS Take 1 tablet by mouth once a day 08/18 amlodipine 34700577300 Parrisyousif Branch FL-C D 20280 250 MCG (44975 UT) CAPS Take 1 capsule by mouth once a day 08/18 cholecalciferol (vitamin d3) 21479326362 Parrisyousif Branch PA-C NITROGLYCERIN 0.4 MG SUBL Take 1 tablet under tongue single dose as needed nitroglycerin 66522233718 Parrisyousif Flanneryil PA-C ROSUVASTATIN CALCIUM 20 MG TABS Take 1 tablet by mouth every night rosuvastatin 75058779717 Parrisyousif Flanneryil PA-C TRIAMCINOLONE ACETONIDE 0.1 % CREA Apply to skin twice a day triamcinolone acetonide 56711059233 Parris Mavis Flanneryil PA-C GLEEVEC 400 MG TABS tablet by mouth imatinib 18039498591 Parrisyousif Flanneryil PA-C NIFEDIPINE ER OSMOTIC RELEASE 30 MG [id number] nifedipine 34305204148 Parrisyousif Flanneryil PA-C TOPIRAMATE 100 MG TABS Take 1 tablet by mouth every evening TAKE ONE TABLET BY MOUTH ONE TIME DAILY AT BEDTIME 07/27 topiramate 32571184229 Marlon Bliss MD TOPIRAMATE 100 MG TABS Take 100 mg by mouth at bedtime. 07/27 topiramate 93437626252 Marlon Bliss MD TOPIRAMATE 100 MG TABS TAKE ONE TABLET BY MOUTH ONE TIME DAILY AT BEDTIME 08/27 topiramate 51747305921 Marlon Bliss MD BUPROPION HCL ER (XL) 150 MG [id number] TAKE ONE TABLET BY MOUTH ONE TIME DAILY bupropion hcl 31846951551 Marlon Bliss MD ROSUVASTATIN CALCIUM 20 MG TABS TAKE ONE TABLET BY MOUTH AT BEDTIME rosuvastatin 95017976811 Marlon Bliss MD TRIAMCINOLONE ACETONIDE 0.1 % CREA Apply topically to affected area(s) 2 times daily. triamcinolone acetonide 85714441595 Marlon Bliss MD LEVOFLOXACIN 500 MG TABS Take 1 Tablet (500 mg) by mouth once daily for 1 day 08/18 levofloxacin 20399165677 Marlon Bliss MD AMLODIPINE BESYLATE 5 MG TABS TAKE ONE TABLET BY MOUTH ONE TIME DAILY 08/24 amlodipine 47010893530 Marlon Bliss MD GABAPENTIN 300 MG CAPS take 1 capsule by mouth once daily at bedtime. may increase to 2 capsules at bedtime after 1 week if needed. gabapentin 26642437488 Marlon Bliss MD OMEPRAZOLE 20 MG CPDR Take 1 Tablet (20 mg) by mouth once daily before a meal omeprazole 37366570544 Marlon Bliss MD TOPIRAMATE 100 MG TABS Take 1 tablet by mouth every evening TAKE ONE TABLET BY MOUTH ONE TIME DAILY AT BEDTIME 07/27 topiramate 34144901427 Marlon Bliss MD TRIAMCINOLONE ACETONIDE 0.1 % CREA Apply topically to affected area(s) 2 times daily. 08/18 triamcinolone (ARISTOCORT; KENALOG) 0.1 % cream 13499606317 Marlon Bliss MD TOPIRAMATE 100 MG TABS Take 100 mg by mouth at bedtime. 07/27 topiramate (TOPAMAX) 100 mg tablet 95004757750 Marlon Bliss MD ROSUVASTATIN CALCIUM 20 MG TABS Take 1 Tablet (20 mg) by mouth at bedtime. Due for cardiology follow up in June 2021. Please call [phone] to schedule. 08/24 rosuvastatin (CRESTOR) 20 mg tablet 27198739739 Marlon Bliss MD OMEPRAZOLE 20 MG TBEC Take 1 Tablet (20 mg) by mouth once daily before a meal. 08/18 omeprazole 20 mg tablet 55065327990 Marlon Bliss MD NITROGLYCERIN 0.4 MG SUBL TAKE 1 TABLET BY MOUTH SUBLINGUALLY ONCE NEEDED 08/18 nitroglycerin (NITROSTAT) 0.4 mg sublingual tablet [id number] Marlon Bliss MD GABAPENTIN 300 MG CAPS One oral at bedtime. May increase to two after 1 week if needed. 08/24 gabapentin (NEURONTIN) 300 mg capsule 88169538161 Marlon Bliss MD VITAMIN D3 250 MCG (32406 UT) CAPS Take 1 Capsule (10,000 units) by mouth once daily. 07/29 cholecalciferol, Vitamin D3, 10,000 unit capsule 68483875623 Marlon Bliss MD BUPROPION HCL ER (XL) 150 MG [id number] Take 1 Tablet (150 mg) by mouth once daily. 08/18 buPROPion (WELLBUTRIN XL) 150 mg Extended-Release tablet [id number] Marlon Bliss MD AMLODIPINE BESYLATE 5 MG TABS TAKE ONE TABLET BY MOUTH ONE TIME DAILY 08/24 amLODIPine (NORVASC) 5 mg tablet 98498203080 Marlon Bliss MD ACETAMINOPHEN 500 MG TABS Take 1,000 mg by mouth every 6 hours if needed. Max acetaminophen dose: 4000mg in 24 hrs. 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 Internal Other: Verbal Autho rization/Emergency [...] Appointment 09:30 AM Parris Branch PA-C, [address], [address], [place], [address], Pending order Follow up TUAN Pending order [...] Procedures Code Procedure Name Date Entry Date [facility]-[id number] Documentation of current medicatio ns ORDERS Patient Instructions ORDERS Follow up ORDERS Patient Instructions ORDERS Follow up TUAN in clinic or telemedicine 2 ORDERS Obtain outside records 07/22 [facility]-[id number] Documentation of current medicatio ns ORDERS Patient Instructions [facility]-[id number] Documentation of current medicatio ns ORDERS Patient Instructions ORDERS Follow up ORDERS Follow up [facility]-[id number] Documentation of current medicatio ns ORDERS Patient Instructions [facility]-[id number] Documentation of current medicatio ns [id number] Other Test [facility]-[id number] Documentation of current medicatio ns ORDERS Patient Instructions ORDERS Follow up [id number] MRI-Brain W/WO [id number] MRA-Head W/ [facility]-[id number] Other Test ORDERS Follow up ORDERS Patient Instructions [facility]-[id number] Documentation of current medicatio ns Vital Signs [...]
[2024-09-11 16:36] LABS: C.Difficile Negative (Negative); CDIFFEPI 027 PRESUMPTIVE NEGATIVE (Negative)
== END 2024-09-11 16:00 | disposition home or self-care (01) ==
PROVIDERS: Emergency Provider Family Medicine; PCP Family Medicine
DX: R19.7 Diarrhea, unspecified (principal)
CPT/HCPCS: 87045; 87046; 87427; 87493; 99283; 99284

== ENCOUNTER 2024-10-17 13:00 | Outpatient (RCR) | payer MEDICARE, OTHER, SELFPAY ==
[2024-07-02 14:00] LABS: Hematocrit* 36.7 % (37.0-53.0); Hemoglobin* 11.6 gm/dL (13.5-17.5); Mean Corpuscular HGB Conc 32 gm/dL (32-36); Mean Corpuscular Hemoglobin 29 pg (26-34); Mean Corpuscular Volume 93 fL (80-100); RDW Coefficient of Variation % 13.0 % (11.5-15.5); Red Blood Count* 3.95 m/uL (4.30-5.90); White Blood Count* 8.07 K/uL (4.50-11.00)
[2024-07-02 14:01] LABS: Immature Granulocytes Abs Auto 0.01 K/uL (0.00-0.30); Immature Granulocytes Pct Auto 0.1 %
[2024-07-02 14:05] LABS: Lymphocytes Absolute Auto 1.20 K/uL (0.90-2.90); Slide Review Reflex No
[2024-07-02 14:20] LABS: Albumin* 4.5 g/dL (3.3-5.0); Chloride* 112 mmol/L (96-114); Potassium* 4.5 mmol/L (3.6-5.1); Sodium* 145 mmol/L (135-149)
[2024-07-02 14:22] LABS: Alanine Aminotransferase* 15 U/L (4-50); Alkaline Phosphatase* 64 U/L (40-150); Anion Gap 9 mEq/L (7-15); Aspartate Amino Transferase* 27 U/L (12-35); Bilirubin Total* 0.4 mg/dL (0.1-1.5); Blood Urea Nitrogen* 26 mg/dL (7-30); Carbon Dioxide* 24 mmol/L (20-32); Creatinine* 1.8 mg/dL (0.5-1.5); Estimated Glomerular Filt Rate 39 ml/min; Total Protein* 7.6 g/dL (6.0-8.3)
[2024-07-02 14:23] LABS: Calcium* 9.1 mg/dL (8.4-10.6); Glucose* 92 mg/dL (60-115)
[2024-07-06 12:44] LABS: QuantBCR-ABL Major p210 Result Detected; QuantBCR-ABL Major p210 Source Not Provided
--- NOTE | 2024-07-10 11:21 | ONC.NURNOTE ---
labs with BCR/ABL results called to patient- results are stable next apps in 3 months
[2024-10-01 13:44] LABS: Hematocrit* 38.7 % (37.0-53.0); Hemoglobin* 11.9 gm/dL (13.5-17.5); Immature Granulocytes Abs Auto 0.01 K/uL (0.00-0.30); Immature Granulocytes Pct Auto 0.1 %; Mean Corpuscular HGB Conc 31 gm/dL (32-36); Mean Corpuscular Hemoglobin 29 pg (26-34); Mean Corpuscular Volume 95 fL (80-100); RDW Coefficient of Variation % 13.4 % (11.5-15.5); Red Blood Count* 4.07 m/uL (4.30-5.90); White Blood Count* 6.85 K/uL (4.50-11.00)
[2024-10-01 13:46] LABS: Lymphocytes Absolute Auto 0.80 K/uL (0.90-2.90); Slide Review Reflex No
[2024-10-01 13:56] LABS: Albumin* 4.5 g/dL (3.3-5.0); Chloride* 111 mmol/L (96-114); Potassium* 4.9 mmol/L (3.6-5.1); Sodium* 141 mmol/L (135-149)
[2024-10-01 13:59] LABS: Alanine Aminotransferase* 20 U/L (4-50); Alkaline Phosphatase* 88 U/L (40-150); Anion Gap 8 mEq/L (7-15); Aspartate Amino Transferase* 29 U/L (12-35); Bilirubin Total* 0.4 mg/dL (0.1-1.5); Blood Urea Nitrogen* 24 mg/dL (7-30); Carbon Dioxide* 22 mmol/L (20-32); Creatinine* 1.6 mg/dL (0.5-1.5); Estimated Glomerular Filt Rate 44 ml/min; Total Protein* 7.9 g/dL (6.0-8.3)
[2024-10-01 14:00] LABS: Calcium* 9.2 mg/dL (8.4-10.6); Glucose* 96 mg/dL (60-115)
--- NOTE | 2024-10-01 15:21 | ONC.NURNOTE ---
Lab results noted and stable, called to Marco Antonio Kidd in 2 weeks with BCR ABL results which are pending today Marco Antonio reports request loose stools, this started about a month ago after a dose of antibiotics at a dental appt he was in the ER and c-diff was checked and was negative after taking 2 imodium for the diarrhea he did not move his bowels for 10 days conventional underwriter provided written instructions on diarrhea management with diet and using Imodium it was recommended that he only take 1 Imodium at a time instead of 2 requested that Marco Antonio call the office if diarrhea persists since this is a common side effect of bosutinib
[2024-10-05 14:23] LABS: QuantBCR-ABL Major p210 Result Detected; QuantBCR-ABL Major p210 Source Whole Blood; QuantBCR-ABLMajor p210 IS % 0.0322 %
--- NOTE | 2024-11-28 15:07 | ONC.NURNOTE ---
Per [employer]- the specialty pharmacy with [facility]- Randa in pharmacy because they will not open pill bottles so per instructions- 2 RX's faxed Bosulif 500mg #30- take one daily Bosulif 100mg #120 ( a 4 mth supply) take one daily with 500mg
== END 2024-12-29 23:59 | disposition home or self-care (01) ==
LOC: CCIC 13:00
PROVIDERS: PCP Family Medicine; Referring Provider Family Medicine; Visit Provider Internal Medicine Hematology & Oncology
DX: C92.11 Chronic myeloid leukemia, BCR/ABL-positive, in remission (principal); R63.4 Abnormal weight loss; I35.0 Nonrheumatic aortic (valve) stenosis; K92.2 Gastrointestinal hemorrhage, unspecified; J91.8 Pleural effusion in other conditions classified elsewhere; G43.809 Other migraine, not intractable, without status migrainosus; N18.32 Chronic kidney disease, stage 3b
CPT/HCPCS: 36415; 80053; 81206; 83615; 85025; 99214; G0463